=== PATIENT | male | born 1955 | race African-American/Black ===

== ENCOUNTER → 2016-07-08 | Outpatient (CLI) | payer OTHER ==
[2016-07-08 13:51] LABS: CH 34.5; HCT 46.2 % (39.0-53.0); HDW 2.44; HGB 15.1 gm/dL (13.0-17.5); MCH 34.4 pg (25.0-35.0); MCHC 32.7 g/dL (31.0-37.0); MCV 105.1 fL (80.0-100.0); Macrocytosis Slight; Mean Platelet Volume 6.8; RBC 4.39 m/uL (4.30-5.90); RDW 13.5 % (11.5-15.5); WBC 6.3 k/uL (3.8-10.6)
[2016-07-08 13:55] LABS: INR 1.1 (<1.1); Prothrombin Time 11.3 sec (9.0-12.0)
[2016-07-08 14:40] LABS: ALT 42 U/L (21-72); AST 42 U/L (17-59); Alkaline Phosphatase 88 U/L (38-126); Anion Gap 8 mmol/L; Blood Urea Nitrogen 8 mg/dL (9-20); Calcium 9.2 mg/dL (8.4-10.2); Carbon Dioxide 28 mmol/L (22-30); Chloride 105 mmol/L (98-107); Cholesterol 200 mg/dL (<200); Glucose 87 mg/dL (74-99); HDL Cholesterol 90 mg/dL (40-60); Iron 138 ug/dL (49-181); Magnesium 2.2 mg/dL (1.6-2.3); Non-African American GFR(MDRD) >60 (>60 ml/min/1.73 sqM); Phosphorous 3.4 mg/dL (2.5-4.5); Potassium 4.2 mmol/L (3.5-5.1); Sodium 141 mmol/L (137-145); Total Bilirubin 1.6 mg/dL (0.2-1.3); Total Protein 6.9 g/dL (6.3-8.2); Triglycerides 138 mg/dL (<150)
[2016-07-08 14:53] LABS: % Iron Saturation 50.7 % (20-50); Prealbumin 30 mg/dL (18-36); Total Iron Binding Capacity 272 ug/dL (261-462)
[2016-07-08 15:47] LABS: Vitamin B12 180 pg/mL (239-931)
[2016-07-08 21:41] LABS: Hemoglobin A1C 4.7 % (4.2-6.1)
[2016-07-13 16:32] LABS: Selenium 105 mcg/L (63-160)
--- NOTE | 2016-09-02 11:19 | P.PN ---
Progress Note - Text DATE OF SERVICE: 07/08/2016 CHIEF COMPLAINT: History of gastric bypass. HISTORY OF PRESENT ILLNESS: Chey Boyle is a 61-year-old gentleman with a personal history of a sleeve gastrectomy performed in August 2013. He then developed a perforation of his sleeve which required revision to a Yahaira-en-Y esophagojejunostomy at an outside institution. At his height of 5 feet 10 inches, his highest weight was 507 pounds. His ideal body weight is 173 pounds. Today he comes in weighing 330 pounds. He has maintained 177 pounds weight loss. Body mass index has been reduced from 72.5 down to 47.2. Total BMI point reduction is 25.2. Since his last visit 6 months ago, he has gained 23 pounds. Percent excess weight loss is 53%. He reports having lower back pain. Separately, he is also pending surgical intervention for his back. He is quite disappointed of his level of weight gain. He reports not taking his multivitamins as before. He wants to get back on track. He also reports losing his teeth. He has not followed up with a dietitian as well. He now presents for further evaluation and management. PAST MEDICAL HISTORY: 1. Super morbid obesity. 2. History of sleep apnea-hypopnea syndrome. 3. Hypertension. 4. Chronic osteoarthritis of the knees and lower back. 5. Pneumonia. 6. Past history of vent-dependent respiratory failure. 7. Prior history of dysphagia. 8. Perforation of sleeve with history of intraabdominal infection. 9. Chronic lower back pain. PAST SURGICAL HISTORY: 1. Tracheostomy. 2. Percutaneous gastrectomy tube placement. 3. Upper endoscopy. 4. Colonoscopy. 5. Sleeve gastrectomy. 6. Drainage of intra-abdominal abscess. 7. Status post esophago-jejunostomy. MEDICATIONS: 1. Percocet. 2. Toprol XL. 3. Folic acid. ALLERGIES: Denies. SOCIAL HISTORY: Still active tobacco use. FAMILY HISTORY: Mother is living. His father of complications with diabetes including super morbid obesity. REVIEW OF SYSTEMS: CONSTITUTIONAL: Personal weight was down 307 pounds for a 5-foot, 10-inch frame. Highest weight of 507 pounds. Maintained weight loss from 177 pounds, a 53% excess weight loss. He has gained 23 pounds in 6 months. Body mass index reduced from 72.5 down to 47.2. Total BMI point reduction 25.2. MUSCULOSKELETAL: Has severe lower back pain. Also reports hip pain. GASTROINTESTINAL: No reports of dumping syndrome or gastroesophageal reflux disease. HEMATOLOGIC: History of venous congestion of the bilateral lower extremities. RESPIRATORY: No recent pneumonias since hospitalization in April. HEENT: Denies troubles with vision or hearing. ENDOCRINE: No reports of diabetes or thyroid disorder. CARDIOVASCULAR: No reports of chest pain. NEURO: No reports of headache or seizure disorder. PSYCH: Has depression. No current suicidal ideation. PHYSICAL EXAM: VITAL SIGNS: Afebrile. GENERAL: Well-developed male in no acute distress. ABDOMEN: No palpable incisional hernias. Soft, nontender, nondistended. CHEST: Nonlabored respirations. Equal bilateral excursions. MUSCULOSKELETAL: No clubbing, cyanosis. HEENT: No scleral icterus. Extraocular movements intake. Moist buccal mucosa. NECK: Supple without lymphadenopathy. CARDIOVASCULAR: Regular rate and rhythm. NEURO: No focal or lateralizing signs. Cranial nerves II to XII intact. PSYCH: Appropriate affect. Alert and oriented to person, place, and time. LABS: Basic metabolic panel reviewed demonstrating hemoglobin normal at 15.1, MCV is elevated at 105.1, evidence of macrocytosis. BUN is low at 8. Percent iron saturation elevated at 50.7. Total bilirubin elevated at 1.6. Cholesterol is elevated at 200. HDL elevated 90. Vitamin B12 is low at 180. Vitamin D is low 17.3. ASSESSMENT: 1. Morbid obesity due to excess calories. 2. Body mass index reduced from 72.5 down to 47.2. 3. History of revision from his sleeve to Yahaira-en-Y esophagojejunostomy secondary to perforation of his sleeve. 4. Weight gain following weight loss procedure. 5. Chronic lower back pain. 6. History of losing teeth. 7. Vitamin B12 deficiency. 8. Vitamin D deficiency. 9. Osteoarthritis of the hip. 10. Prior history of medical noncompliance. 11. History of depression. 12. History of sleep apnea, resolved. 13. Dietary surveillance and counseling. PLAN: 1. History laboratory results demonstrates vitamin B12 deficiency. Recommend vitamin B12 correction including with injection and daily supplementation. 2. He also reports increased fatigue as a result, which likely secondary to his vitamin B12 deficiency. 3. Recommend vitamin D supplement 50,000 units weekly. 4. Also recommend follow-up with bariatric dietitian regarding getting back on track and goal protein intake of over 90 grams daily. 5. Recommend journal entry as to follow his caloric intake. 6. Close monitoring can anticipate overall anticipated weight loss of 45 pounds over the next 3 to 6 months.
== END | disposition home or self-care (01) ==
LOC: BARWHC3 09:49
PROVIDERS: ATTEND Surgery Plastic and Reconstructive Surgery
DX: E66.01 Morbid (severe) obesity due to excess calories (principal); E21.1 Secondary hyperparathyroidism, not elsewhere classified; E89.1 Postprocedural hypoinsulinemia; D50.8 Other iron deficiency anemias; K90.89 Other intestinal malabsorption; E55.9 Vitamin D deficiency, unspecified; N19 Unspecified kidney failure; K50.90 Crohn's disease, unspecified, without complications; K76.9 Liver disease, unspecified
CPT/HCPCS: 84255; 84134; 84425; 80061; 80053; 82607; 82728; 83036; 82525; 82746; 83540; 83550; 83735; 84100; 84443; 84590; 84630; 85027; 85610; 85730; 82306; 83970; 36415; G0463; 99211

== ENCOUNTER → 2019-01-10 | Outpatient (CLI) | payer OTHER ==
--- NOTE | 2019-01-10 14:33 | P.GSCN ---
History of Present Illness Consult date: 01/10/19 History of present illness: HPI: He comes in with weight gain from 331 to 369 pounds. He is s/p sleeve to gastric bypass. He comes in tired. His enery is low. He comes in with abdominal pain. No protonix. He cannot tolerate sugars. He has gained from 281 pounds to 369 pounds. Gained 90 pounds. He is due scope. He is eating bread. He is pasta. He reports depression. He stopped working out. He reports pain. He was anti-depressants that cause weight gain. Recommend get labs. He is drinking sangria. Past Medical History Past Medical History: Hypertension Additional Past Medical History / Comment(s): Glasses, loose and chipped teeth, Diverticulitis, Gout, Polyps, Back pain, Arthritis, lung abcess 03/06/15 Pt has been seeing physician in [place] for leak in sleeve, venous insufficiency in Left leg, RIght hip has spur, History of Any Multi-Drug Resistant Organisms: None Reported Past Surgical History: Bariatric Surgery, Orthopedic Surgery, Tonsillectomy Additional Past Surgical History / Comment(s): Right and Left ACL, polyps removed, sleeve gastrectomy August 2013, Gastric leak September 2014, March 2015 Gastric Bypass performed by ([facility]) Past Anesthesia/Blood Transfusion Reactions: No Reported Reaction Past Psychological History: No Psychological Hx Reported Additional Psychological History / Comment(s): states he had a bout of depression when abcess was discovered in his sleeve Smoking Status: Current some day smoker Past Alcohol Use History: Daily Additional Past Alcohol Use History / Comment(s): "3-4 glasses of wine daily and one pint of [place] about 4 nights/week. Mixes it with [place] Lemonade or Fruit Punch as well." Cigars a few times a week. Past Drug Use History: None Reported Medications and Allergies Home Medications Medication Instructions Recorded Confirmed Type Folic Acid 1 mg PO DAILY 01/14/16 07/08/16 History Metoprolol Succinate (ER) [Toprol 25 mg PO BID 01/14/16 07/08/16 History Xl] oxyCODONE-APAP 7.5-325MG [Percocet 1 tab PO Q8HR PRN 01/14/16 07/08/16 History 7.5-325 mg] Ergocalciferol [Vitamin D2 50,000 unit PO Q7D #12 cap 07/08/16 Rx (DRISDOL)] Cyanocobalamin (Vitamin B-12) 5,000 mcg PO DAILY #30 tab.rapdis 08/29/16 Rx [Vitamin B12] Allergies Allergy/AdvReac Type Severity Reaction Status Date / Time No Known Allergies Allergy Verified 07/08/16 12:18
--- NOTE | 2019-01-10 14:35 | P.HPBAR ---
Bariatric H&P - History & Physicial H&P Date: 01/10/19 History & Physicial: Visit/CC: Patient initial contact: Initial weight: 201.622 kg Initial weight in pounds: Height: Initial BMI: Last weight: Current weight: Current weight in pounds: Current BMI: [place] body weight (based on NIH guidelines): Excess body weight loss: The patient is a 63 year-old M who presents for Bariatric Assessment. HPI: He comes in with weight gain from 331 to 369 pounds. He is s/p sleeve to ga stric bypass. He comes in tired. His enery is low. He comes in with abdominal pain. No protonix. He cannot tolerate sugars. He has gained from 281 pounds to 369 pounds. Gained 90 pounds. He is due scope. He is eating bread. He is pasta. He reports depression. He stopped working out. He reports pain. He was anti-depressants that cause weight gain. Recommend get labs. He is drinking sangria. He has severe back pain Hernia on exam Get Ct scan Colonoscopy EGD Labs Stop cigar erx for omeprazole Past Medical History Past Medical History: Hypertension Additional Past Medical History / Comment(s): Glasses, loose and chipped teeth, Diverticulitis, Gout, Polyps, Back pain, Arthritis, lung abcess 03/06/15 Pt has been seeing physician in [place] for leak in sleeve, venous insufficiency in Left leg, RIght hip has spur, History of Any Multi-Drug Resistant Organisms: None Reported Past Surgical History: Bariatric Surgery, Orthopedic Surgery, Tonsillectomy Additional Past Surgical History / Comment(s): Right and Left ACL, polyps removed, sleeve gastrectomy August 2013, Gastric leak September 2014, March 2015 Gastric Bypass performed by ([facility]) Past Anesthesia/Blood Transfusion Reactions: No Reported Reaction Past Psychological History: No Psychological Hx Reported Additional Psychological History / Comment(s): states he had a bout of depression when abcess was discovered in his sleeve Smoking Status: Current some day smoker Past Alcohol Use History: Daily Additional Past Alcohol Use History / Comment(s): "3-4 glasses of wine daily and one pint of [place] about 4 nights/week. Mixes it with [place] Lemonade or Fruit Punch as well." Cigars a few times a week. Past Drug Use History: None Reported Bariatric Checklist Checklist: Plan: Checklist: EGD: 1. Hiatal hernia: 2. H. Pylori: HgbA1c: Vitamin D: Smoking: Current some day smoker Primary care physician referral: mark HeJasper) Psychiatry clearance: Cardiology clearance: Sleep study: Diet journal: VTE risk score: VTE risk level: Rehab needs at discharge:
[2019-01-10 14:55] VITALS: BP 159/93; PULSE 82; TEMP 97.7; BMI 52.6
[2019-01-10 16:11] LABS: HCT 50.9 % (39.0-53.0); HGB 15.8 gm/dL (13.0-17.5); MCH 33.8 pg (25.0-35.0); MCHC 31.1 g/dL (31.0-37.0); MCV 108.8 fL (80.0-100.0); Macrocytosis Moderate; Mean Platelet Volume 6.7; Platelet Count 344 k/uL (150-450); RBC 4.68 m/uL (4.30-5.90); RDW 12.9 % (11.5-15.5); WBC 9.3 k/uL (3.8-10.6)
[2019-01-10 16:24] LABS: Partial Thromboplastin Time 23.4 sec (22.0-30.0)
[2019-01-10 23:59] LABS: Hemoglobin A1C 4.6 % (4.0-6.0)
[2019-01-11 01:15] LABS: % Iron Saturation 53.24 (15.00-50.00); African American GFR (CKD) 106.5 (60.0-200.0); Albumin 3.9 g/dL (3.80-4.90); Albumin/Globulin Ratio 1.56 (1.60-3.17); Anion Gap 11.1 mmol/L (4.00-12.00); BUN/Creat Ratio 7.78 Ratio (12.00-20.00); Carbon Dioxide 25.9 mmol/L (21.6-31.8); Chol/HDL Ratio 2.81; Globulin 2.5 g/dL (1.6-3.3); LDL Cholesterol,Calculated 88.8 mg/dL (0.0-131.0); Magnesium 1.9 mg/dL (1.5-2.4); Phosphorus 3.4 mg/dL (2.4-5.1); Potassium 4.4 mmol/L (3.5-5.5); Total Bilirubin 1.1 mg/dL (0.3-1.2); Total Protein 6.4 g/dL (6.2-8.2); VLDL Calculation 27.2 mg/dL (5.00-40.00)
[2019-01-11 01:22] LABS: Ferritin 165.9 ng/mL (22.0-322.0)
[2019-01-11 01:24] LABS: Folate, Serum 8.6 ng/mL
[2019-01-11 11:20] LABS: Zinc, Serum 68 ug/dL (60-130)
[2019-01-11 15:09] LABS: Vitamin A 25 ug/dL (38-106)
[2019-01-12 11:28] LABS: Vit B1(Thiamine) 70 ug/L (38-122)
[2019-01-16 18:06] LABS: Selenium 75 mcg/L (63-160)
== END | disposition home or self-care (01) ==
LOC: BARWHC3 13:28
PROVIDERS: ATTEND Surgery Plastic and Reconstructive Surgery
DX: Z48.815 Encounter for surgical aftercare following surgery on the digestive system (principal); Z98.84 Bariatric surgery status; R63.5 Abnormal weight gain
CPT/HCPCS: 84255; 84134; 84425; 80061; 80053; 82607; 82728; 82525; 82746; 83540; 83550; 83735; 84100; 84443; 84590; 84630; 85027; 85610; 85730; 82306; 83970; 83036; G0463; 99211

== ENCOUNTER → 2019-01-20 | Outpatient (CLI) | payer OTHER ==
--- NOTE | 2019-01-21 12:52 | CT ---
EXAMINATION TYPE: CT abdomen pelvis w con DATE OF EXAM: 01/20/2019 COMPARISON: Gallbladder ultrasound of 2015 HISTORY: Abdomen pain. Pt hx gastric bypass. Check for diverticulitis CT DLP: 2591.70 mGycm Automated exposure control for dose reduction was used. TECHNIQUE: Helical acquisition of images was performed from the lung bases through the pelvis. CONTRAST: Performed with Oral Contrast and with IV Contrast, patient injected with 100 mL of Isovue 300. FINDINGS: The exam is markedly limited secondary to patient body habitus. LUNG BASES: Bibasilar peribronchial cuffing. LIVER/GB: There is markedly suboptimal evaluation. At least moderate grade hepatic steatosis. Calcifi cation or surgical suture along the medial hepatic surface on image 36 may be within a loop of adjace nt small bowel. No radiopaque calculi within the gallbladder on CT. PANCREAS: Some atrophy is seen. No ductal dilatation. SPLEEN: No significant abnormality is seen. ADRENALS: No nodularity or thickening. KIDNEYS: Kidneys enhance symmetrically. FREE AIR: No free air is visualized. RETROPERITONEAL ADENOPATHY: No gross evidence of pathologic adenopathy in the abdomen or pelvis. OSSEOUS STRUCTURES: Moderate multilevel degenerative disc disease of the spine and moderate degenera tive change of the hips. BOWEL: The stomach appears surgically absent with anastomosis of small bowel to the distal esophagus . Numerous sigmoid diverticula are seen with long segment thickening of the distal sigmoid colon. Jina luation for fat stranding is suboptimal given patient body habitus and artifact generation however guadarrama btle fat stranding is questioned around the sigmoid colon diffusely. No pericolonic fluid collection to suggest abscess. No dilated large or small bowel. IMPRESSION: 1. THE EXAM IS MARKEDLY LIMITED SECONDARY TO PATIENT BODY HABITUS ARTIFACT IS GENERATED EDGES OF A CUTE INJURY. LONG SEGMENT BOWEL WALL THICKENING OF THE SIGMOID COLON AND NUMEROUS DIVERTICULA ARE SEE N WITH QUESTIONABLE MILD FAT STRANDING. ACUTE OR RESOLVING DIVERTICULITIS IS A POSSIBILITY. CORRELATE WITH CLINICAL SYMPTOMS. NO SURROUNDING ABSCESS. 2. MARKEDLY SUBOPTIMAL EVALUATION OF THE LIVER. AT LEAST MODERATE GRADE HEPATIC STEATOSIS. 3. BIBASILAR PERIBRONCHIAL CUFFING COULD RELATE TO REACTIVE OR INFECTIOUS AIRWAY DISEASE. 4. POSTSURGICAL CHANGES OF THE BOWEL WITHOUT EVIDENCE OF OBSTRUCTION.
== END | disposition home or self-care (01) ==
LOC: RADCTMAIN 13:23
PROVIDERS: ATTEND Surgery Plastic and Reconstructive Surgery
DX: K57.31 Diverticulosis of large intestine without perforation or abscess with bleeding (principal); K76.0 Fatty (change of) liver, not elsewhere classified; K63.89 Other specified diseases of intestine; S36.593A Other injury of sigmoid colon, initial encounter; Z98.890 Other specified postprocedural states
CPT/HCPCS: 74177; Q9967

== ENCOUNTER 2019-01-28 05:50 | Inpatient (IN) | payer OTHER ==
[2019-01-28] MEDS ORDERED: SODIUM CHLORIDE 0.9% 500 ML 500 ML IV STA (06:08)
[2019-01-28] MEDS ORDERED: PANTOPRAZOLE 40 MG/10 ML VIAL IVP STA (06:09)
[2019-01-28 06:28] LABS: ALT 163 U/L (21-72); AST 475 U/L (17-59); African American GFR (CKD) >90 (>60 ml/min/1.73 sqM); Albumin 3.3 g/dL (3.5-5.0); Alkaline Phosphatase 220 U/L (38-126); Amylase <30 U/L (30-110); Anion Gap 8 mmol/L; Blood Urea Nitrogen 5 mg/dL (9-20); Calcium 8.7 mg/dL (8.4-10.2); Carbon Dioxide 23 mmol/L (22-30); Chloride 108 mmol/L (98-107); Glucose 146 mg/dL (74-99); Non-African American GFR(CKD) >90 (>60 ml/min/1.73 sqM); Sodium 139 mmol/L (137-145); Total Bilirubin 2.7 mg/dL (0.2-1.3)
[2019-01-28 06:29] LABS: Basophils # (A) 0.1 k/uL (0-0.2); Basophils % (A) 1 %; Eosinophils # (A) 0.1 k/uL (0-0.7); Eosinophils % (A) 1 %; HCT 44.4 % (39.0-53.0); HGB 14.6 gm/dL (13.0-17.5); Lymphocytes # (A) 0.7 k/uL (1.0-4.8); Lymphocytes % (A) 7 %; MCH 35.4 pg (25.0-35.0); MCHC 32.8 g/dL (31.0-37.0); MCV 107.8 fL (80.0-100.0); Macrocytosis Moderate; Mean Platelet Volume 6.6; Monocytes # (A) 0.2 k/uL (0-1.0); Monocytes % (A) 2 %; Neutrophils # (A) 9.7 k/uL (1.3-7.7); Neutrophils % (A) 89 %; Platelet Count 280 k/uL (150-450); RBC 4.12 m/uL (4.30-5.90); RDW 13.2 % (11.5-15.5); WBC 10.9 k/uL (3.8-10.6)
[2019-01-28 06:37] LABS: Appearance,Urine Clear (Clear); Bilirubin,Urine 1+ (Negative); Blood,Urine Negative (Negative); Color,Urine Yellow; Glucose,Urine (UA) Negative (Negative); Hyaline Casts,Urine 44 /lpf (0-2); Ketones,Urine Negative (Negative); Leukocyte Esterase,Urine Negative (Negative); Mucus,Urine Rare /hpf; Nitrite,Urine Negative (Negative); PH, Urine 5.5 (5.0-8.0); Protein,Urine 1+ (Negative); Specific Gravity,Urine 1.016 (1.001-1.035); Squamous Epithelial Cell,Urine <1 /hpf (0-4)
[2019-01-28 06:37] LABS: INR 1.1 (<1.2); Partial Thromboplastin Time 21.9 sec (22.0-30.0); Prothrombin Time 11.5 sec (9.0-12.0)
[2019-01-28] MEDS ORDERED: HYDROmorphone 0.5 MG/0.5 ML SYRINGE IVP STA ×3 (06:50→09:59)
[2019-01-28] MEDS ORDERED: SODIUM CHLORIDE 0.9% 1,000 ML IV ONE ×3 (06:55→10:30)
[2019-01-28] MEDS: SODIUM CHLORIDE 0.9% 1,000 ML IV SCH ×3 (07:00→23:54)
--- NOTE | 2019-01-28 07:01 | XR ---
EXAMINATION TYPE: XR chest 2V DATE OF EXAM: 01/28/2019 COMPARISON: 12/27/2011 HISTORY: Epigastric pain TECHNIQUE: Frontal and lateral views of the chest are obtained. FINDINGS: There is poor inspiration. There is some mild atelectasis at the lung bases. There is no o bvious heart failure. There is some coarsening of the lung markings. There are chest leads. IMPRESSION: Poor inspiration with some mild atelectasis at the lung bases. No heart failure seen. Pu lmonary vascularity improved compared to old exam.
--- NOTE | 2019-01-28 07:23 | ED ---
Abdominal Pain HPI <Jose Elias Goel - Last Filed: 01/28/19 12:43> - General Source: patient, EMS Mode of arrival: EMS Limitations: no limitations <[facility] [place] - Last Filed: 01/28/19 14:21> - General Chief Complaint: Abdominal Pain Stated Complaint: abd pain Time Seen by Provider: 01/28/19 06:08 - History of Present Illness Initial Comments: 63-year-old male with history of "removed" gastric sleeve s/p perforation, HTN presenting today for chief complaint of abdominal pain. Patient states that he is in epigastric right upper quadrant abdominal pain ongoing for the past 1-2 months. Patient states she has had evaluation by general surgery, where he is scheduled tomorrow to undergo an endoscopy to rule out cause of this pain a peptic ulcer. He states he has had both an abdominal US of the gallbladder as well as a recent CT of the abdomen. Patient states he has occasional bloody stools with constipation. Patient denies any ghanshyam heavy rectal bleeding, history of hemorrhoids. Denies melena. Patient states occasionally he is nauseated and has vomiting. Patient states that yesterday evening and into the night he began to experience the same upper abdominal pain he has been for the past month and thought it was best to present to the ER for further evaluation. Denies chest pressure, jaw or arm pain, denies back pain or SOB. Patient did not take morning medications. Patient has not other complaints. Upon arrival patient does appear uncomfortable. ([facility] [place]) - Related Data Home Medications Medication Instructions Recorded Confirmed Folic Acid 1 mg PO DAILY 01/14/16 01/28/19 oxyCODONE-APAP 7.5-325MG [Percocet 1 tab PO TID PRN 01/14/16 01/28/19 7.5-325 mg] Allopurinol [Zyloprim] 300 mg PO DAILY PRN 01/25/19 01/28/19 Ergocalciferol [Vitamin D2 50,000 unit PO FR 01/25/19 01/28/19 (DRISDOL)] Metoprolol Tartrate [Lopressor] 50 mg PO BID 01/25/19 01/28/19 Docusate [Colace] 100 mg PO DAILY PRN 01/28/19 01/28/19 Furosemide [Lasix] 20 mg PO DAILY 01/28/19 01/28/19 Gabapentin [Neurontin] 300 mg PO DAILY 01/28/19 01/28/19 Tetrahydrozoline 0.05% Ophth 1 drop BOTH EYES DAILY PRN 01/28/19 01/28/19 [Visine Eye Drops] Previous Rx's Medication Instructions Recorded Omeprazole 40 mg PO DAILY #90 capsule. 01/10/19 Allergies Allergy/AdvReac Type Severity Reaction Status Date / Time No Known Allergies Allergy Verified 01/28/19 10:50 Review of Systems ROS Other: All systems not noted in ROS Statement are negative. <Jose Elias Goel - Last Filed: 01/28/19 12:43> ROS Other: All systems not noted in ROS Statement are negative. <[facility] [place] - Last Filed: 01/28/19 14:21> ROS Statement: Those systems with pertinent positive or pertinent negative responses have been documented in the HPI. Past Medical History Past Medical History: Hypertension Additional Past Medical History / Comment(s): Glasses, loose and chipped teeth, Diverticulitis, Gout, Polyps, Back pain, Arthritis, lung abcess 03/06/15 Pt has been seeing physician in [place] for leak in sleeve, venous insufficiency in Left leg, RIght hip has spur, History of Any Multi-Drug Resistant Organisms: None Reported Past Surgical History: Bariatric Surgery, Orthopedic Surgery, Tonsillectomy Additional Past Surgical History / Comment(s): Right and Left ACL, polyps removed, sleeve gastrectomy August 2013, Gastric leak September 2014, March 2015 Gastric Bypass performed by ([facility] [place] Past Anesthesia/Blood Transfusion Reactions: No Reported Reaction Past Psychological History: No Psychological Hx Reported Smoking Status: Current some day smoker Past Alcohol Use History: Daily Additional Past Alcohol Use History / Comment(s): "3-4 glasses of wine daily and one pint of [place] about 4 nights/week. Mixes it with Cutten Lemonade or Fruit Punch as well." Cigars a few times a week. <[facility] [place] - Last Filed: 01/28/19 14:21> General Exam Limitations: no limitations <[facility] [place] - Last Filed: 01/28/19 14:21> - General Exam Comments Initial Comments: General: The patient is awake and alert, in no distress, morbidly obese Eye: Pupils are equal, round and reactive to light, extra-ocular movements are intact. No nystagmus. There is normal conjunctiva bilaterally. No signs of icterus. Ears, nose, mouth and throat: There are moist mucous membranes and no oral lesions. Neck: The neck is supple, there is no tenderness or JVD. Cardiovascular: There is a increased rate and rhythm. No murmur, rub or gallop is appreciated. Respiratory: Lungs are clear to auscultation, respirations are non-labored, breath sounds are equal. No wheezes, stridor, rales, or rhonchi. Gastrointestinal: Soft, non-distended, epigastric tenderness to palpation of the abdomen without masses or organomegaly noted. The guarding no rebound tenderness. No CVA tenderness. Bowel sounds are unremarkable. Musculoskeletal: Normal ROM, no tenderness. Strength 5/5. Sensation intact. Radial pulses equal bilaterally 2+. Neurological: A&O x 3. CN II-XII intact grossly, There are no obvious motor or sensory deficits. Coordination appears grossly intact. Speech is normal. Skin: Skin is warm and dry and no rashes or lesions are noted. Psychiatric: Cooperative, appropriate mood & affect, normal judgment. ([facility] [place]) Course <Jose Elias Goel - Last Filed: 01/28/19 12:43> Vital Signs 01/28/19 01/28/19 01/28/19 05:51 07:34 07:46 Temperature 97.7 F Pulse Rate 103 H 146 H 144 H Respiratory 22 18 Rate Blood Pressure 127/78 131/61 O2 Sat by Pulse 93 L 91 L Oximetry 01/28/19 01/28/19 01/28/19 07:48 08:00 08:47 Temperature Pulse Rate 144 H 140 H Respiratory 18 18 Rate Blood Pressure 126/63 111/69 O2 Sat by Pulse 94 L 96 96 Oximetry 01/28/19 01/28/19 01/28/19 10:42 10:51 11:11 Temperature Pulse Rate 137 H 133 H 133 H Respiratory 18 18 18 Rate Blood Pressure 84/52 97/59 86/61 O2 Sat by Pulse 97 95 95 Oximetry 01/28/19 01/28/19 01/28/19 11:35 11:54 12:15 Temperature Pulse Rate 122 H 124 H 122 H Respiratory 18 18 18 Rate Blood Pressure 94/41 102/58 101/66 O2 Sat by Pulse 95 91 L 95 Oximetry 01/28/19 01/28/19 12:50 13:10 Temperature 100.7 F H Pulse Rate 125 H Respiratory 18 Rate Blood Pressure 99/64 O2 Sat by Pulse 95 Oximetry - Reevaluation(s) Reevaluation #1: 01/28/19 11:09 Patient earlier evaluated by myself, Dr. Goel. Patient complains of abdominal discomfort. Patient has mild to moderate diffuse tenderness, mostly midabdomen somewhat right upper quadrant. Ultrasound ordered and computed tomography scan. There is concern concern for possible gallbladder disease. Case was discussed twice with Dr. Hdez. He will consult and recommends consult Dr. Parr as well. He does recommend medical admission. Case was discussed with Dr. Hernandez, who will admit for medical call covering for Dr. Gonzales. Heart rate now he has decreased to 120. Blood pressure is 97 systolic. Cultures and lactic acid and IV and about X ordered. Patient has received fluid bolus based off his ideal body weight for a 5 foot 10 male. This was calculated under 2500 mL 01/28/19 11:38 Patient does meet criteria for septic shock diagnosed at 11 AM. 01/28/19 11:53 Case also discussed with Dr. Paris, who will consult for critical care and agrees with plan. (Jose Elias Goel) Procedures - Central Line Placement Right Femoral Consent Obtained: verbal consent, written consent Patient Placed on Monitor/Pulse Ox: Yes MD Prep: mask, gown, gloves Central Line Prep: Chlorhexidine scrub Local Anesthesia Used: Lidocaine 1% Amount of Anesthesia Used (mls): 2 Central Line Lumen Inserted: triple Central Line Position: good blood return, all ports aspirated, flushed, capped, sutured in place with 3-0 nylon Dressing Applied: Tegaderm Patient Tolerated Procedure: well, no complications Complications: none Right SC Consent Obtained: verbal consent, written consent Patient Placed on Monitor/Pulse Ox: Yes MD Prep: mask, gown, gloves Central Line Prep: Chlorhexidine scrub Local Anesthesia Used: Lidocaine 1% Amount of Anesthesia Used (mls): 2 Patient Tolerated Procedure: well, no complications - Sepsis Sepsis Focused Exam #1 Time Sepsis Criteria Met: 11:00 Sepsis Focused Exam Date: 01/28/19 Sepsis Focused Exam Time: 11:38 Sepsis Focused Exam Complete: Yes Vital Signs & RN Notes Reviewed: Yes Capillary Refill: < 2 Seconds: Fingers, Toes Peripheral Pulses: Normal: Radial (R), Radial (L) Skin Color: Normal for Patient Respiratory Exam: normal lung sounds Cardiovascular Exam: tachycardia <Jose Elias Goel - Last Filed: 01/28/19 12:43> - Jelm Protocol (Time Out) Nurse: Neisha Garsia <[facility] [place] - Last Filed: 01/28/19 14:21> - Central Line Placement Right SC Additional Comments: Subclavian vein site obtained however unable to advance guidewire. (Jose Elias Goel) Medical Decision Making - Lab Data Result diagrams: 01/28/19 06:06 01/28/19 06:06 <Jose Elias Goel - Last Filed: 01/28/19 12:43> - Lab Data Result diagrams: 01/28/19 06:06 01/28/19 06:06 <[facility] [place] - Last Filed: 01/28/19 14:21> - Medical Decision Making 63-year-old male presenting for abdominal pain scheduled for outpatient endoscopy tomorrow with Dr. Tay. Patient presenting for persistent epigastric abdominal pain patient has significant transaminitis. Surgery consult to given patient's bariatric status Dr. Goel spoke with Dr. Fox after evaluating the patient. He recommended bariatric CT. There is significant hepatitis. Increased new and a stye with elevation of lactic acid. Patient also was noted to have increase of HR 140, given adenosine by Dr. Goel. EKG revealed sinus tachycardia. Sepsis diagnosed at 10:00 AM with possible infection, elev ation of HR. Given rocephin. Surgery was consulted for the second time by Dr. Goel at 1016, Dr. Delgado recommended admission to medicine with him and GI on consult. IV abx, fluids, NPO. Patient BP trending downward, HR remains elevated, attending aware, second line and increased IVF ordered. If unresponsive patient will need central line insertion placement on ICU. Persistent hypotensive despite fluid resuscitation, patient will have central line for intravenous pressers placed by Dr. Goel, ICU placement ([facility] [place]) - Lab Data Lab Results 01/28/19 01/28/19 01/28/19 Range/Units 06:06 06:06 06:06 WBC 10.9 H (3.8-10.6) k/uL RBC 4.12 L (4.30-5.90) m/uL Hgb 14.6 (13.0-17.5) gm/dL Hct 44.4 (39.0-53.0) % MCV 107.8 H (80.0-100.0) fL MCH 35.4 H (25.0-35.0) pg MCHC 32.8 (31.0-37.0) g/dL RDW 13.2 (11.5-15.5) % Plt Count 280 (150-450) k/uL Neutrophils % 89 % Lymphocytes % 7 % Monocytes % 2 % Eosinophils % 1 % Basophils % 1 % Neutrophils # 9.7 H (1.3-7.7) k/uL Lymphocytes # 0.7 L (1.0-4.8) k/uL Monocytes # 0.2 (0-1.0) k/uL Eosinophils # 0.1 (0-0.7) k/uL Basophils # 0.1 (0-0.2) k/uL Macrocytosis Moderate PT (9.0-12.0) sec INR (<1.2) APTT (22.0-30.0) sec Sodium 139 (137-145) mmol/L Potassium 4.0 (3.5-5.1) mmol/L Chloride 108 H (98-107) mmol/L Carbon Dioxide 23 (22-30) mmol/L Anion Gap 8 mmol/L BUN 5 L (9-20) mg/dL Creatinine 0.66 (0.66-1.25) mg/dL Est GFR (CKD-EPI)AfAm >90 (>60 ml/min/1.73 sqM) Est GFR (CKD-EPI)NonAf >90 (>60 ml/min/1.73 sqM) Glucose 146 H (74-99) mg/dL Lactic Ac Sepsis Rflx Plasma Lactic Acid Dave 3.6 H* (0.7-2.0) mmol/L Calcium 8.7 (8.4-10.2) mg/dL Total Bilirubin 2.7 H (0.2-1.3) mg/dL AST 475 H (17-59) U/L ALT 163 H (21-72) U/L Alkaline Phosphatase 220 H (38-126) U/L Troponin I (0.000-0.034) ng/mL Total Protein 7.0 (6.3-8.2) g/dL Albumin 3.3 L (3.5-5.0) g/dL Amylase <30 L (30-110) U/L Lipase 33 (23-300) U/L Urine Color Urine Appearance (Clear) Urine pH (5.0-8.0) Ur Specific Bath (1.001-1.035) Urine Protein (Negative) Urine Glucose (UA) (Negative) Urine Ketones (Negative) Urine Blood (Negative) Urine Nitrite (Negative) Urine Bilirubin (Negative) Urine Urobilinogen (<2.0) mg/dL Ur Leukocyte Esterase (Negative) Urine WBC (0-5) /hpf Ur Squamous Epith Cells (0-4) /hpf Hyaline Casts (0-2) /lpf Urine Mucus (None) /hpf Acetaminophen ug/mL Hepatitis A IgM Ab 01/28/19 01/28/19 01/28/19 Range/Units 06:06 06:06 06:06 WBC (3.8-10.6) k/uL RBC (4.30-5.90) m/uL Hgb (13.0-17.5) gm/dL Hct (39.0-53.0) % MCV (80.0-100.0) fL MCH (25.0-35.0) pg MCHC (31.0-37.0) g/dL RDW (11.5-15.5) % Plt Count (150-450) k/uL Neutrophils % % Lymphocytes % % Monocytes % % Eosinophils % % Basophils % % Neutrophils # (1.3-7.7) k/uL Lymphocytes # (1.0-4.8) k/uL Monocytes # (0-1.0) k/uL Eosinophils # (0-0.7) k/uL Basophils # (0-0.2) k/uL Macrocytosis PT 11.5 (9.0-12.0) sec INR 1.1 (<1.2) APTT 21.9 L (22.0-30.0) sec Sodium (137-145) mmol/L Potassium (3.5-5.1) mmol/L Chloride (98-107) mmol/L Carbon Dioxide (22-30) mmol/L Anion Gap mmol/L BUN (9-20) mg/dL Creatinine (0.66-1.25) mg/dL Est GFR (CKD-EPI)AfAm (>60 ml/min/1.73 sqM) Est GFR (CKD-EPI)NonAf (>60 ml/min/1.73 sqM) Glucose (74-99) mg/dL Lactic Ac Sepsis Rflx Plasma Lactic Acid Dave (0.7-2.0) mmol/L Calcium (8.4-10.2) mg/dL Total Bilirubin (0.2-1.3) mg/dL AST (17-59) U/L ALT (21-72) U/L Alkaline Phosphatase (38-126) U/L Troponin I <0.012 (0.000-0.034) ng/mL Total Protein (6.3-8.2) g/dL Albumin (3.5-5.0) g/dL Amylase (30-110) U/L Lipase (23-300) U/L Urine Color Urine Appearance (Clear) Urine pH (5.0-8.0) Ur Specific Bath (1.001-1.035) Urine Protein (Negative) Urine Glucose (UA) (Negative) Urine Ketones (Negative) Urine Blood (Negative) Urine Nitrite (Negative) Urine Bilirubin (Negative) Urine Urobilinogen (<2.0) mg/dL Ur Leukocyte Esterase (Negative) Urine WBC (0-5) /hpf Ur Squamous Epith Cells (0-4) /hpf Hyaline Casts (0-2) /lpf Urine Mucus (None) /hpf Acetaminophen <10.0 ug/mL Hepatitis A IgM Ab 01/28/19 01/28/19 01/28/19 Range/Units 06:20 06:55 10:16 WBC (3.8-10.6) k/uL RBC (4.30-5.90) m/uL Hgb (13.0-17.5) gm/dL Hct (39.0-53.0) % MCV (80.0-100.0) fL MCH (25.0-35.0) pg MCHC (31.0-37.0) g/dL RDW (11.5-15.5) % Plt Count (150-450) k/uL Neutrophils % % Lymphocytes % % Monocytes % % Eosinophils % % Basophils % % Neutrophils # (1.3-7.7) k/uL Lymphocytes # (1.0-4.8) k/uL Monocytes # (0-1.0) k/uL Eosinophils # (0-0.7) k/uL Basophils # (0-0.2) k/uL Macrocytosis PT (9.0-12.0) sec INR (<1.2) APTT (22.0-30.0) sec Sodium (137-145) mmol/L Potassium (3.5-5.1) mmol/L Chloride (98-107) mmol/L Carbon Dioxide (22-30) mmol/L Anion Gap mmol/L BUN (9-20) mg/dL Creatinine (0.66-1.25) mg/dL Est GFR (CKD-EPI)AfAm (>60 ml/min/1.73 sqM) Est GFR (CKD-EPI)NonAf (>60 ml/min/1.73 sqM) Glucose (74-99) mg/dL Lactic Ac Sepsis Rflx Y Plasma Lactic Acid Dave 3.4 H* (0.7-2.0) mmol/L Calcium (8.4-10.2) mg/dL Total Bilirubin (0.2-1.3) mg/dL AST (17-59) U/L ALT (21-72) U/L Alkaline Phosphatase (38-126) U/L Troponin I (0.000-0.034) ng/mL Total Protein (6.3-8.2) g/dL Albumin (3.5-5.0) g/dL Amylase (30-110) U/L Lipase (23-300) U/L Urine Color Yellow Urine Appearance Clear (Clear) Urine pH 5.5 (5.0-8.0) Ur Specific Bath 1.016 (1.001-1.035) Urine Protein 1+ H (Negative) Urine Glucose (UA) Negative (Negative) Urine Ketones Negative (Negative) Urine Blood Negative (Negative) Urine Nitrite Negative (Negative) Urine Bilirubin 1+ H (Negative) Urine Urobilinogen 6.0 (<2.0) mg/dL Ur Leukocyte Esterase Negative (Negative) Urine WBC 1 (0-5) /hpf Ur Squamous Epith Cells <1 (0-4) /hpf Hyaline Casts 44 H (0-2) /lpf Urine Mucus Rare H (None) /hpf Acetaminophen ug/mL Hepatitis A IgM Ab 01/28/19 01/28/19 Range/Units 10:49 11:09 WBC (3.8-10.6) k/uL RBC (4.30-5.90) m/uL Hgb (13.0-17.5) gm/dL Hct (39.0-53.0) % MCV (80.0-100.0) fL MCH (25.0-35.0) pg MCHC (31.0-37.0) g/dL RDW (11.5-15.5) % Plt Count (150-450) k/uL Neutrophils % % Lymphocytes % % Monocytes % % Eosinophils % % Basophils % % Neutrophils # (1.3-7.7) k/uL Lymphocytes # (1.0-4.8) k/uL Monocytes # (0-1.0) k/uL Eosinophils # (0-0.7) k/uL Basophils # (0-0.2) k/uL Macrocytosis PT (9.0-12.0) sec INR (<1.2) APTT (22.0-30.0) sec Sodium (137-145) mmol/L Potassium (3.5-5.1) mmol/L Chloride (98-107) mmol/L Carbon Dioxide (22-30) mmol/L Anion Gap mmol/L BUN (9-20) mg/dL Creatinine (0.66-1.25) mg/dL Est GFR (CKD-EPI)AfAm (>60 ml/min/1.73 sqM) Est GFR (CKD-EPI)NonAf (>60 ml/min/1.73 sqM) Glucose (74-99) mg/dL Lactic Ac Sepsis Rflx Y Plasma Lactic Acid Dave (0.7-2.0) mmol/L Calcium (8.4-10.2) mg/dL Total Bilirubin (0.2-1.3) mg/dL AST (17-59) U/L ALT (21-72) U/L Alkaline Phosphatase (38-126) U/L Troponin I (0.000-0.034) ng/mL Total Protein (6.3-8.2) g/dL Albumin (3.5-5.0) g/dL Amylase (30-110) U/L Lipase (23-300) U/L Urine Color Urine Appearance (Clear) Urine pH (5.0-8.0) Ur Specific Bath (1.001-1.035) Urine Protein (Negative) Urine Glucose (UA) (Negative) Urine Ketones (Negative) Urine Blood (Negative) Urine Nitrite (Negative) Urine Bilirubin (Negative) Urine Urobilinogen (<2.0) mg/dL Ur Leukocyte Esterase (Negative) Urine WBC (0-5) /hpf Ur Squamous Epith Cells (0-4) /hpf Hyaline Casts (0-2) /lpf Urine Mucus (None) /hpf Acetaminophen ug/mL Hepatitis A IgM Ab NEGATIVE Critical Care Time Critical Care Time: Yes <Jose Elias Goel - Last Filed: 01/28/19 12:43> Disposition <Jose Elias Goel - Last Filed: 01/28/19 12:43> Is patient prescribed a controlled substance at d/c from ED?: No Time of Disposition: 12:00 <[address] [facility] - Last Filed: 01/28/19 14:21> Clinical Impression: Septic shock, Abdominal pain, Hypotension Disposition: ADMITTED IP TO THIS HOSP Condition: Serious
[2019-01-28] MEDS ORDERED: SODIUM CHLORIDE 0.9% 1,000 ML IV STA (07:49)
[2019-01-28] MEDS: HYDROmorphone 1 MG/ML 1 ML SYRINGE IVP STA ×2 (08:01→12:33)
[2019-01-28] MEDS ORDERED: IOPAMIDOL CONTRAST (ORAL USE) VIAL PO PRN (08:24)
--- NOTE | 2019-01-28 09:35 | CT ---
EXAMINATION TYPE: CT abdomen pelvis w con DATE OF EXAM: 01/28/2019 COMPARISON: 01/20/2019 HISTORY: 63-year-old male pain and vomiting TECHNIQUE: Contiguous axial scanning of the abdomen and pelvis following administration of 100 ml Iso mk 300 IV contrast. Delayed images through the kidneys and coronal/sagittal reconstructions perform ed. CT DLP: 3838 mGycm Automated exposure control for dose reduction was used. FINDINGS: Generalized anasarca change. Heart borderline enlarged without pericardial effusion. No pleural effus ion. Increased patchy posterior basilar opacities. Contrast column within the distal esophagus. There seems to be prior surgery in the upper abdomen, li valerio Belén-en-Y gastric bypass. The liver is large with very low attenuation. Liver measures 30.0 cm craniocaudal. A band of hyperdensity projects along the right lateral margin of the liver. On coronal series, this is compatible with artifact rather than a subcapsular abnormality. Mild gallbladder hydrops and 4.1 cm wide with suggestion of mild wall thickening. Brent hepatic lymph node is mildly enlarged measuring up to 1.6 cm. These have increased in size from 01/20/2019. Portal venous system is patent. Adrenal glands within normal limits. The kidney images show normal excretion of contrast from the kid neys. Subcentimeter hypodensity lateral mid pole left kidney too small for accurate CT characterizati on, likely tiny cysts. Liver and pancreas appear within normal limits. No dilated small bowel, free fluid, or free air. Normal appendix. Left-sided colonic diverticulosis. No definite pericolonic inflammatory change. Annular narrowing along the mid sigmoid, axial image 82 was not present on 01/20/2019. Findings sugge st transient peristaltic contraction. No abnormal fluid collection the pelvis or pelvic lymphadenopathy. Bones: Degenerative changes of the hips and SI joints. Degenerative disc disease and facet arthropath y throughout the visualized spine. [facility] within the lower thoracic spine. IMPRESSION: 1. SEVERE HEPATOMEGALY (30.0 CM). THERE IS LOW-DENSITY OF THE LIVER SUGGESTING EITHER EDEMA FROM HEPA TITIS OR UNDERLYING FATTY INFILTRATION. FURTHER CLINICAL CORRELATION RECOMMENDED. 2. PORTAHEPATIC LYMPHADENOPATHY MEASURING UP TO 1.6 CM, INCREASING FROM RECENT 01/20/2019 EXAM SUGGES TS REACTIVE LYMPHADENOPATHY. 3. NO EXCRETION OF CONTRAST FROM THE KIDNEYS ON DELAYED KIDNEY IMAGES. CORRELATE WITH PATIENT'S RENAL FUNCTION TO EXCLUDE ACUTE KIDNEY INJURY. 4. MILD GALLBLADDER WALL THICKENING AND MILD GALLBLADDER HYDROPS. THE GALLBLADDER DISTENTION MAY RELA TE TO FASTING STATE. THE WALL THICKENING IS NONSPECIFIC AND COULD RELATE TO UNDERLYING LIVER DISEASE OR FLUID OVERLOAD STATE. IF CONCERN FOR EARLY ACUTE CHOLECYSTITIS, HIDA SCAN MAY BE HELPFUL. 5. LEFT-SIDED COLONIC DIVERTICULOSIS. NO DEFINITE ACUTE DIVERTICULITIS. 6. GENERALIZED ANASARCA CHANGE, NEW/INCREASED FROM 01/20/2019. 7. NEW PATCHY BIBASILAR DENSITIES COULD REPRESENT ATELECTASIS OR INFECTIOUS/ASPIRATION INFILTRATES. 8. PRIOR BELÉN-EN-Y GASTRIC BYPASS.
--- NOTE | 2019-01-28 09:43 | US ---
EXAMINATION TYPE: US gallbladder DATE OF EXAM: 01/28/2019 COMPARISON: NONE CLINICAL HISTORY: 63-year-old male transaminitis, upper abdominal pain. Epigastric pain, nausea and v omiting TECHNIQUE: Multiple sonographic images of the right upper quadrant are obtained. FINDINGS: EXAM MEASUREMENTS: Liver Length: 26.2 cm Gallbladder Wall: 0.4 cm CBD: 0.5 cm Right Kidney: 12.3 x 5.7 x 6.0 cm [employer] NOTES: Technical limitations due to patient's body habitus (365 pounds) and large amoun t of overlying bowel content Pancreas: Obscured by bowel gas Liver: enlarged, attenuating, unable to penetrate Gallbladder: possible small 6 mm stone vs. polyp. The wall is mildly thickened at 3.9 mm. Evidence for sonographic Bey's sign: no CBD: limited evaluation, visualized portion measures 5.2 mm, within normal limits. Right Kidney: limited detailed evaluation. No obvious hydronephrosis. IMPRESSION: 1. The liver is very large (26.2 cm). Heterogeneous and attenuating appearance suggests underlying fa tty liver or other nonspecific hepatocellular disease. 2. Mildly thickened gallbladder wall. 6 mm gallstone versus polyp. No abnormal distention, sonographi c Bey's sign, or surrounding fluid to support acute cholecystitis at this time. 3. Only a small portion of the bile duct is visualized and is normal caliber.
[2019-01-28] MEDS ORDERED: SODIUM CHLORIDE 0.9% 500 ML 500 ML IV ONE (09:59)
[2019-01-28] MEDS ORDERED: NALOXONE 0.4 MG/ML 1 ML VIAL IV PRN (10:23)
[2019-01-28] MEDS ORDERED: PIPERACILLIN-TAZOBACTAM 3.375 GM in SODIUM CHLORIDE 0.9% 100 ML IVPB STA (10:23)
[2019-01-28 11:57] LABS: Hepatitis A Antibody IgM NEGATIVE
[2019-01-28] MEDS ORDERED: NOREPINEPHRINE 32 MG in SODIUM CHLORIDE 0.9% 218 ML IV SCH (12:45)
--- NOTE | 2019-01-28 12:58 | XR ---
EXAMINATION TYPE: XR chest 1V portable DATE OF EXAM: 01/28/2019 Comparison: 01/28/2019 Clinical History: 63-year-old male line attempt Findings: No appreciable pneumothorax. Heart mildly enlarged. Lung bases are underpenetrated and not well asses sed. Impression: Mild cardiomegaly. No appreciable pneumothorax. Patchy bibasilar areas of atelectasis and/or infiltra terrie.
[2019-01-28] MEDS ORDERED: ACETAMINOPHEN TAB 500 MG TAB PO STA (13:11)
[2019-01-28 13:48] LABS: Glucose,Whole Blood 169 mg/dL (75-99)
[2019-01-28 13:56] VITALS: BMI 52.9
[2019-01-28] MEDS ORDERED: ACETAMINOPHEN IV (For NPO) 1,000 MG in EMPTY BAG 1 BAG IVPB PRN (14:21)
[2019-01-28] MEDS ORDERED: HYDROmorphone 0.5 MG/0.5 ML SYRINGE IVP PRN (14:22)
[2019-01-28] MEDS: HEPARIN SODIUM,PORCINE 5,000 UNIT/ML 1 ML VIAL SQ SCH ×2 (15:56→23:53)
[2019-01-28] MEDS: PIPERACILLIN-TAZOBACTAM 3.375 GM in SODIUM CHLORIDE 0.9% 100 ML IVPB SCH ×2 (16:01→23:53)
[2019-01-28] MEDS ORDERED: HYDROmorphone 1 MG/ML 1 ML SYRINGE IVP PRN (17:50)
[2019-01-28 18:25] LABS: Basophils # (A) 0.1 k/uL (0-0.2); Basophils % (A) 0 %; Eosinophils # (A) 0.1 k/uL (0-0.7); Eosinophils % (A) 0 %; HCT 43.5 % (39.0-53.0); HGB 13.9 gm/dL (13.0-17.5); Hypochromasia Slight; Lymphocytes # (A) 0.4 k/uL (1.0-4.8); Lymphocytes % (A) 2 %; MCH 35.4 pg (25.0-35.0); MCV 110.9 fL (80.0-100.0); Macrocytosis Marked; Mean Platelet Volume 6.2; Monocytes # (A) 0.6 k/uL (0-1.0); Monocytes % (A) 3 %; Neutrophils # (A) 17.7 k/uL (1.3-7.7); Neutrophils % (A) 93 %; Platelet Count 236 k/uL (150-450); RBC 3.92 m/uL (4.30-5.90); RDW 13.1 % (11.5-15.5)
[2019-01-28 18:41] LABS: ALT 193 U/L (21-72); AST 498 U/L (17-59); African American GFR (CKD) >90 (>60 ml/min/1.73 sqM); Albumin 2.9 g/dL (3.5-5.0); Alkaline Phosphatase 162 U/L (38-126); Anion Gap 9 mmol/L; Blood Urea Nitrogen 8 mg/dL (9-20); Calcium 7.7 mg/dL (8.4-10.2); Carbon Dioxide 23 mmol/L (22-30); Chloride 108 mmol/L (98-107); Glucose 114 mg/dL (74-99); Non-African American GFR(CKD) >90 (>60 ml/min/1.73 sqM); Potassium 5.1 mmol/L (3.5-5.1); Sodium 140 mmol/L (137-145); Total Bilirubin 5.1 mg/dL (0.2-1.3); Total Protein 6.3 g/dL (6.3-8.2)
[2019-01-28] MEDS ORDERED: KETOROLAC 30 MG/ML 1 ML VIAL IVP PRN (18:57)
[2019-01-28 19:13] LABS: Amylase <30 U/L (30-110)
--- NOTE | 2019-01-28 19:16 | P.HPIM ---
History of Present Illness H&P Date: 01/28/19 Chief Complaint: Abdominal pain Patient is a 63-year-old male with a known history of hypertension, history of removed gastric status post perforation, chronic back pain, osteoarthritis and other medical problems came to ER with complaints of abdominal pain. Patient says that he was having worsening abdominal pain since yesterday, mainly in the epigastric region and right upper quadrant. Patient stated home until 4 AM today but could not bear the pain anymore and presented to ER. Patient is supposed to be getting EGD due to epigastric abdominal pain today by Dr. Galina bell. He was taking the bowel prep since yesterday. Denied any radiation of the pain to the back artery side of the abdomen. Mainly in the epigastric region and sometimes radiating down the abdomen to rehab likely area. Denied any complaints of chest pain. No shortness of . No fever no chills. Patient does drink 1-2 beers on regular basis. Was tachycardic and hypotensive on admission. Patient was given 3 L fluid bolus in the ER. Patient was transferred to MICU. CXR showed mild ateleactasis at lung bases. CT abd. showed severe hepatomegaly and eunice hepatic lymphadenopathy.mild gall bladder enlargement and hydrops. leftsided diverticulosis. US-abd fatty liver WBC 10.9 LA 3.4 ASL 475 ALT 163 Review of Systems Constitutional: Patient denies any fever or chills . No generalized weakness or weight loss. Abdomen: Abdominal pain epigastric and right upper quadrant. Nausea positive. No vomiting. No diarrhea.. Cardiovascular: Patient denies any chest pain or short of breath no palpitations. Respiratory: patient denied any cough is from production. No shortness of breath Neurologic: Patient denied any numbness or tingling headache. Musculoskeletal: Patient denies any complaints of joint swelling or deformity. Skin: Negative Psychiatric: Negative Endocrine: No heat or cold intolerance. No recent weight gain. Genitourinary: No dysuria or hematuria. All other 14 point ROS negative except the above Past Medical History Past Medical History: Hypertension Additional Past Medical History / Comment(s): Glasses, loose and chipped teeth, Diverticulitis, Gout, Polyps, Back pain, Arthritis, lung abcess 03/06/15 Pt has been seeing physician in [place] for leak in sleeve, venous insufficiency in Left leg, RIght hip has spur, History of Any Multi-Drug Resistant Organisms: None Reported Past Surgical History: Bariatric Surgery, Orthopedic Surgery, Tonsillectomy Additional Past Surgical History / Comment(s): Right and Left ACL, polyps removed, sleeve gastrectomy August 2013, Gastric leak September 2014, March 2015 Gastric Bypass performed by ([facility]) Past Anesthesia/Blood Transfusion Reactions: No Reported Reaction Past Psychological History: No Psychological Hx Reported Smoking Status: Current some day smoker Past Alcohol Use History: Daily Additional Past Alcohol Use History / Comment(s): "3-4 glasses of wine daily and one pint of [place] about 4 nights/week. Mixes it with [place] Lemonade or Fruit Punch as well." Cigars a few times a week. Medications and Allergies Home Medications Medication Instructions Recorded Confirmed Type Folic Acid 1 mg PO DAILY 01/14/16 01/28/19 History oxyCODONE-APAP 7.5-325MG [Percocet 1 tab PO TID PRN 01/14/16 01/28/19 History 7.5-325 mg] Omeprazole 40 mg PO DAILY #90 capsule. 01/10/19 01/28/19 Rx Allopurinol [Zyloprim] 300 mg PO DAILY PRN 01/25/19 01/28/19 History Ergocalciferol [Vitamin D2 50,000 unit PO FR 01/25/19 01/28/19 History (ISDLIBRA)] Metoprolol Tartrate [Lopressor] 50 mg PO BID 01/25/19 01/28/19 History Docusate [Colace] 100 mg PO DAILY PRN 01/28/19 01/28/19 History Furosemide [Lasix] 20 mg PO DAILY 01/28/19 01/28/19 History Gabapentin [Neurontin] 300 mg PO DAILY 01/28/19 01/28/19 History Tetrahydrozoline 0.05% Ophth 1 drop BOTH EYES DAILY PRN 01/28/19 01/28/19 History [Visine Eye Drops] Allergies Allergy/AdvReac Type Severity Reaction Status Date / Time No Known Allergies Allergy Verified 01/28/19 10:50 Physical Exam Vitals: Vital Signs Temp Pulse Pulse Resp BP BP Pulse Ox 01/28/19 13:34 100.3 F H 117 H 16 84/44 92 L 01/28/19 13:10 100.7 F H 01/28/19 12:50 125 H 18 99/64 95 01/28/19 12:15 122 H 18 101/66 95 01/28/19 11:54 124 H 18 102/58 91 L 01/28/19 11:35 122 H 18 94/41 95 01/28/19 11:11 133 H 18 86/61 95 01/28/19 10:51 133 H 18 97/59 95 01/28/19 10:42 137 H 18 84/52 97 01/28/19 08:47 140 H 18 111/69 96 01/28/19 08:00 144 H 18 126/63 96 01/28/19 07:48 94 L 01/28/19 07:46 144 H 18 131/61 91 L 01/28/19 07:34 146 H 01/28/19 05:51 97.7 F 103 H 22 127/78 93 L Intake and Output 01/27/19 01/28/19 01/28/19 22:59 06:59 14:59 Other: Weight 165.561 kg PHYSICAL EXAMINATION: Patient is lying in the bed comfortably, no acute distress, awake alert and oriented. Morbidly obese. HEENT: Normocephalic. Neck is supple. Pupils reactive. Nostrils clear. Oral cavity is moist. Ears reveal no drainage. Neck reveals no JVD, carotid bruits, or thyromegaly. CHEST EXAMINATION: Trachea is central. Symmetrical expansion. Bibasilar diminished air entry. Lung yarbrough clear to auscultation and percussion. CARDIAC: Normal S1, S2 with no gallops. No murmurs ABDOMEN: Soft. Mild epigastric tenderness. No guarding no rigidity. Bowel sounds present. No organomegaly. No abdominal bruits. Extremities: Trace edema. No clubbing or cyanosis Neurologically awake, alert, oriented x3 with well-coordinated movements. No focal deficits noted Skin: No rash or skin lesions. Psychiatric: Coperative. Nonsuicidal Musculoskeletal: No joint swelling or deformity. Normal range of motion. Results CBC & Chem 7: 01/28/19 17:39 01/28/19 06:06 Labs: Abnormal Lab Results - Last 24 Hours (Table) 01/28/19 01/28/19 01/28/19 Range/Units 06:06 06:06 06:06 WBC 10.9 H (3.8-10.6) k/uL RBC 4.12 L (4.30-5.90) m/uL MCV 107.8 H (80.0-100.0) fL MCH 35.4 H (25.0-35.0) pg Neutrophils # 9.7 H (1.3-7.7) k/uL Lymphocytes # 0.7 L (1.0-4.8) k/uL APTT (22.0-30.0) sec Chloride 108 H (98-107) mmol/L BUN 5 L (9-20) mg/dL Glucose 146 H (74-99) mg/dL POC Glucose (mg/dL) (75-99) mg/dL Plasma Lactic Acid Dave 3.6 H* (0.7-2.0) mmol/L Total Bilirubin 2.7 H (0.2-1.3) mg/dL AST 475 H (17-59) U/L ALT 163 H (21-72) U/L Alkaline Phosphatase 220 H (38-126) U/L Albumin 3.3 L (3.5-5.0) g/dL Amylase <30 L (30-110) U/L Urine Protein (Negative) Urine Bilirubin (Negative) Hyaline Casts (0-2) /lpf Urine Mucus (None) /hpf 01/28/19 01/28/19 01/28/19 Range/Units 06:06 06:20 10:16 WBC (3.8-10.6) k/uL RBC (4.30-5.90) m/uL MCV (80.0-100.0) fL MCH (25.0-35.0) pg Neutrophils # (1.3-7.7) k/uL Lymphocytes # (1.0-4.8) k/uL APTT 21.9 L (22.0-30.0) sec Chloride (98-107) mmol/L BUN (9-20) mg/dL Glucose (74-99) mg/dL POC Glucose (mg/dL) (75-99) mg/dL Plasma Lactic Acid Dave 3.4 H* (0.7-2.0) mmol/L Total Bilirubin (0.2-1.3) mg/dL AST (17-59) U/L ALT (21-72) U/L Alkaline Phosphatase (38-126) U/L Albumin (3.5-5.0) g/dL Amylase (30-110) U/L Urine Protein 1+ H (Negative) Urine Bilirubin 1+ H (Negative) Hyaline Casts 44 H (0-2) /lpf Urine Mucus Rare H (None) /hpf 01/28/19 01/28/19 Range/Units 13:35 13:57 WBC (3.8-10.6) k/uL RBC (4.30-5.90) m/uL MCV (80.0-100.0) fL MCH (25.0-35.0) pg Neutrophils # (1.3-7.7) k/uL Lymphocytes # (1.0-4.8) k/uL APTT (22.0-30.0) sec Chloride (98-107) mmol/L BUN (9-20) mg/dL Glucose (74-99) mg/dL POC Glucose (mg/dL) 169 H (75-99) mg/dL Plasma Lactic Acid Dave 4.4 H* (0.7-2.0) mmol/L Total Bilirubin (0.2-1.3) mg/dL AST (17-59) U/L ALT (21-72) U/L Alkaline Phosphatase (38-126) U/L Albumin (3.5-5.0) g/dL Amylase (30-110) U/L Urine Protein (Negative) Urine Bilirubin (Negative) Hyaline Casts (0-2) /lpf Urine Mucus (None) /hpf Thrombosis Risk Factor Assmnt - DVT/VTE Prophylaxis DVT/VTE Prophylaxis: Pharmacologic Prophylaxis ordered, Mechanical Prophylaxis ordered - Choose All That Apply Any of the Below Risk Factors Present?: Yes Each Factor Represents 1 point: Obesity (BMI >25), Sepsis (< 1month) Other Risk Factors: Yes Each Risk Factor Represents 2 Points: Age 61-74 years Other congenital or acquired thrombophilia - If yes, enter type in comment: No Thrombosis Risk Factor Assessment Total Risk Factor Score: 4 Thrombosis Risk Factor Assessment Level: Moderate Risk Assessment and Plan Assessment: Abdominal pain secondary to peptic ulcer disease versus acute cholecystitis. Sepsis/septic shock secondary to above Lactic acidosis Elevated liver enzymes and alk phos Hyperbilirubinemia 5.1 Severe hepatomegaly Gallbladder wall thickening and mild hydrops Left colonic diverticulosis Hypertension Chronic back pain and arthritis History of lung abscess History of gastric sleeve perforation and removal. History of Gastric bypass surgery Ongoing nicotine addiction Alcohol abuse Morbid obesity BMI 55.2 DVT prophylaxis with subcu and Plan: Patient be continued on IV hydration and pressor support as needed. Continue with antibiotics in the form of Zosyn and follow closely in the ICU. Critical care team and general surgery was consulted. GI service was also consulted. Continue with PPI. Further recommendations based on clinical course. Prognosis is guarded this t thierry. Time with Patient: Greater than 30
--- NOTE | 2019-01-28 19:49 | CONS ---
CONSULTATION PULMONARY/CRITICAL CARE CONSULTATION: DATE OF CONSULTATION: 01/28/2019 This is a 63-year-old male status post gastric sleeve removal, status post a perforation. Apparently, he had a gastric sleeve done in 2013. About a year later he had a gastric blowout. His surgeon is Dr. Tanner. She initially did the sleeve. He presents to the emergency room via EMS today with complaints of severe abdominal pain. The abdominal pain is mostly epigastric more than anything else. The patient received quite a bit of fluid in the emergency room because of hypotension. He received 5 L of fluid. He has currently got norepinephrine running at 10 mcg/minute. His primary care doctor is Dr. Barron. His surgeon is Dr. Tanner. He was apparently scheduled for an EGD and colonoscopy as an outpatient tomorrow. The patient's pain has been going on and off for about 2 or 3 months. Typically it goes away, but this time it seemed to stay and that is why he came to be seen. He was evaluated in the emergency room by Dr. Goel and a central line was placed and he was placed in the ICU. Currently, he states he is feeling better. Denies chest pain or chest discomfort. He denies any difficulty breathing, coughing, wheezing or shortness of breath. The pain is much better now. He has received pain medication. His home medications include folic acid, Percocet, allopurinol, vitamin D2, metoprolol, Colace, Lasix, Neurontin, and Visine eyedrops. He also is on omeprazole. ALLERGIES: Denied. MEDICAL HISTORY: Hypertension. He also has a history of diverticulitis, gout, colonic polyps, chronic back pain, arthritis, and a previous history of lung abscess. Again, his initial gastric sleeve surgery was back in 2013. SURGICAL HISTORY: Includes tonsillectomy, right and left ACL repair, polypectomy, sleeve gastrectomy in 2013 and a gastric leak in 2014. In 2016 he had a gastric bypass performed by Dr. Cole at the [facility]. SOCIAL HISTORY: Positive for ongoing tobacco use. He drinks alcohol daily. He is a heavy drinker and apparently drinks 3-4 glasses of wine daily and 1 pint of bourbon about every week. He also smokes cigars a few times a week. FAMILY HISTORY: Unremarkable. States his parents were in good health. REVIEW OF SYSTEMS: CONSTITUTIONAL: Negative. NEUROLOGIC: Negative. HEENT: Negative. CARDIOVASCULAR: Negative. PULMONARY: Negative. GI: Abdominal pain. : Negative. RHEUMATOLOGIC: Negative. IMMUNOLOGIC: Negative. ENDOCRINOLOGIC: Negative. DERMATOLOGIC: Negative. PHYSICAL EXAMINATION: VITAL SIGNS: Current vital signs are reviewed. His temperature is 98.4, heart rate 100, respiratory rate about 17-18 breaths per minute, blood pressure is now about 90 systolic. His saturations are in the low to mid 90s on 2 L. Appears in no acute distress. HEENT examination is grossly unremarkable. Nasal O2 in place. NECK: Supple. CARDIOVASCULAR examination reveals mild tachycardia. Heart rate about 100. It is regular. LUNGS: Reveal clear breath sounds. No wheezes, rhonchi, or crackles. ABDOMEN: Tender to palpation. His tenderness is throughout the abdomen but mostly in the epigastric region. He does not appear to favor one side or the other. EXTREMITIES: Intact. No cyanosis, clubbing, or edema. SKIN: Without rash. NEUROLOGIC: Examination is nonfocal. LAB DATA: Reviewed. White count 10.9, hemoglobin 14.6, hematocrit 44.4, platelet count 380,000. PT/INR were normal. PTT 21.9. Sodium 139, potassium 4, chloride 108, CO2 is 23. Anion gap 8. BUN and creatinine were 5 and 0.66. His lactic acid was initially elevated, went down a bit and then went back up a bit. Calcium 8.7, bilirubin 2.7, AST 475, ALT 163, albumin was 3.3, amylase less than 30, lipase 33. Urine is negative. Tylenol level was negative. The patient had a chest x-ray. The chest x-ray shows small lung volumes, maybe a bit of cephalization and bibasilar atelectasis and small bilateral pleural effusions. This may relate to all the fluid he received in the emergency room. He had an abdominal and pelvic CT scan which showed severe hepatomegaly and possible hepatitis and/or fatty infiltration, eunice hepatic lymphadenopathy measuring up to 1.6 cm, mild gallbladder wall thickening and mild gallbladder hydrops, left-sided colonic diverticulosis, generalized anasarca, bibasilar patchy densities and previous Yahaira-en-Y gastric bypass procedure. Gallbladder ultrasound shows the liver to be very large suggesting fatty infiltration and/or nonspecific hepatocellular disease. The gallbladder wall was mildly thickened. There is a 6 mm gallstone versus polyp. Current microbiology is pending or negative. Currently, he is on norepinephrine at 10 mcg/minutes, 0.9 at 130 mL an hour. His other medications are primarily Zosyn, Narcan, Dilaudid, and Tylenol. ASSESSMENT: 1. Severe epigastric pain of unclear etiology in a patient with a prior history of sleeve gastrectomy in August 2013, gastric blowout of gastric sleeve September 2014 and subsequent gastric bypass (Yahaira-en-Y) March 2015. 2. Profound hypotension, which may relate to sepsis. 3. Lactic acidosis. 4. History of hypertension. 5. History of gout. 6. History of diverticular disease. 7. Colonic polyp. 8. Arthritis. 9. History of lung abscess. 10.Acute hepatitis, possibly related to heavy alcohol use. PLAN: Currently, the patient is on fluids and pressors. Surgery has been notified. He was to have an outpatient EGD and colonoscopy performed tomorrow by Dr. Tanner. Currently, Dr. Delgado is covering for Dr. Tanner. Respiratory status remains stable. We will repeat the lactic acid later today. Additional recommendations and suggestions are forthcoming. We will attempt to maintain a mean arterial pressure between 65-70 mmHg. Prognosis is guarded. We will observe for alcohol withdrawal syndrome. MMODL / IJN: [id number] / MTDD
--- NOTE | 2019-01-28 19:52 | P.PN ---
Progress Note - Text Progress Note Date: 01/28/19 I was consulted on this patient earlier today as I am covering Dr. Tay. I spoke to the ER physicians earlier today. He was admitted to the ICU under the medical service. Both myself, GI, and critical care work consult it. Patient's liver enzymes on admission were elevated. CAT scan and ultrasound both limited by the patient's significant abdominal obesity however possible cholelithiasis and gallbladder wall thickening suspected. In the ICU the patient's pain was persisting. His blood pressure was somewhat labile requiring low-dose pressors. Repeat labs were ordered by myself at 4 PM which revealed increasing bilirubin now of 5.1, ALT and AST also slightly increased, alkaline phosphatase slightly decreased. White blood cell count elevated now at 19,000. He is making urine. Pain is being controlled with IV narcotics. The patient apparently has had a sleeve converted to bypass for reasons of sleeve leak. I discussed this case with Dr. Davies by phone after seeing the increasing liver enzymes knowing our working diagnosis is a sending cholangitis. Her opinion was that early transfer to a tertiary care center that may be able to complete an ERCP despite the significant obesity and history of bypass should be done sooner than later. I agree with that opinion. I discussed this also with Dr. Boo who also is in agreement that the patient is stable for transfer now however if he truly does have a sending cholangitis despite antibiotic therapy he could decompensate further. I then discussed the case with Dr. Hernandez. He is comfortable with the plans for transfer and will make appropriate arrangements. Through the nursing staff I notified the patient that this was our recommendation.
[2019-01-28] MEDS: HYDROmorphone 1 MG/ML 1 ML SYRINGE IVP PRN ×2 (20:31→23:02)
[2019-01-28] MEDS ORDERED: PANTOPRAZOLE 40 MG/10 ML VIAL IVP SCH (21:00)
[2019-01-29] MEDS: HYDROmorphone 1 MG/ML 1 ML SYRINGE IVP PRN ×3 (01:05→05:49)
[2019-01-29 06:04] VITALS: BP 127/77; PULSE 95; RESP 20; TEMP 97.8
[2019-01-29 17:59] LABS: Hepatitis B Core IgM Non-Reactive (Non-Reactive); Hepatitis B Surface Antigen Non-Reactive (Non-Reactive); Hepatitis C IgG Antibody Non-Reactive (Non-Reactive)
== END 2019-01-29 04:30 | disposition short-term general hospital (02) | DRG 871 ==
LOC: EC 05:50 → 2SICU 12:51
PROVIDERS: ADMIT Internal Medicine; ATTEND Internal Medicine
PROC: 06HM33Z Insertion of Infusion Device into Right Femoral Vein, Percutaneous Approach (ICD-10-PCS; principal; 2019-01-28)
DX: A41.9 Sepsis, unspecified organism (principal); R65.21 Severe sepsis with septic shock; Z68.43 Body mass index [BMI] 50.0-59.9, adult; E87.2 Acidosis; B17.9 Acute viral hepatitis, unspecified; K82.1 Hydrops of gallbladder; K83.09 Other cholangitis; E66.01 Morbid (severe) obesity due to excess calories; R16.0 Hepatomegaly, not elsewhere classified; K76.0 Fatty (change of) liver, not elsewhere classified; R59.1 Generalized enlarged lymph nodes; I10 Essential (primary) hypertension; K57.30 Diverticulosis of large intestine without perforation or abscess without bleeding; K59.00 Constipation, unspecified; M10.9 Gout, unspecified; I87.2 Venous insufficiency (chronic) (peripheral); M19.90 Unspecified osteoarthritis, unspecified site; M76.9 Unspecified enthesopathy, lower limb, excluding foot; G89.29 Other chronic pain; M54.9 Dorsalgia, unspecified; F10.10 Alcohol abuse, uncomplicated; Z71.6 Tobacco abuse counseling; F17.290 Nicotine dependence, other tobacco product, uncomplicated; Z79.899 Other long term (current) drug therapy; Z98.84 Bariatric surgery status; Z86.010 Personal history of colon polyps; Z87.19 Personal history of other diseases of the digestive system; Z98.890 Other specified postprocedural states
CPT/HCPCS: 36415; 36556; 71045; 71046; 74177; 76705; 80053; 80074; 80329; 81001; 82150; 83605; 83690; 84484; 85025; 85610; 85730; 87040; 93005; 96361; 96365; 96367; 96375; 96376; 99285

== ENCOUNTER 2019-02-09 06:04 | Emergency (ER) | payer OTHER ==
--- NOTE | 2019-02-09 06:26 | ED ---
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 Patient states that last night he had a chili dog he states he then began experiencing sharp right upper quadrant abdominal pain without radiation. He also had nausea vomiting and loose stools. Patient states during his visit at [facility] he was diagnosed with "gallbladder infection" and discharged with ciprofloxcin and flagyll. Patient states his endoscopy was negative for ulcer and there was no additional complications of his previous bariatric surgery. Patient states they attributed his symptoms at that time to his gallbladder. Patient states symptoms were relatively controlled after discharged until yesterday evening. Patient denies fevers, admits to chills. Denies chest pain, SOB. Patient denies melena, hematochezia. WHen s akin returned for recurrent symptoms at [facility] he had significantly elevated transaminases as well a bilirubin and alkaline phosphatase. He was then transferred to our facility after discussing case with Dr. Olson who accepted transfer. (Court [place]) - Related Data Home Medications Medication Instructions Recorded Confirmed Folic Acid 1 mg PO DAILY 01/14/16 02/09/19 oxyCODONE-APAP 7.5-325MG [Percocet 1 tab PO TID PRN 01/14/16 02/09/19 7.5-325 mg] Allopurinol [Zyloprim] 300 mg PO DAILY PRN 01/25/19 02/09/19 Ergocalciferol [Vitamin D2 50,000 unit PO FR 01/25/19 02/09/19 (DRISDOL)] Metoprolol Tartrate [Lopressor] 50 mg PO BID 01/25/19 02/09/19 Furosemide [Lasix] 20 mg PO DAILY PRN 01/28/19 02/09/19 Gabapentin [Neurontin] 300 mg PO TID 01/28/19 02/09/19 Tetrahydrozoline 0.05% Ophth 1 drop BOTH EYES DAILY PRN 01/28/19 02/09/19 [Visine Eye Drops] Albuterol Inhaler [Ventolin Hfa 1 - 2 puff INHALATION RT-Q6H PRN 02/09/1902/09 Inhaler] Ciprofloxacin HCl [Cipro] 500 mg PO BID 02/09/19 02/09/19 Multivitamins, Thera [Multivitamin 1 tab PO DAILY 02/09/19 02/09/19 (formulary)] metroNIDAZOLE [Flagyl] 500 mg PO Q8H 02/09/19 02/09/19 Previous Rx's Medication Instructions Recorded Omeprazole 40 mg PO DAILY #90 capsule. 01/10/19 Allergies Allergy/AdvReac Type Severity Reaction Status Date / Time No Known Allergies Allergy Verified 02/09/19 07:28 Review of Systems ROS Other: All systems not noted in ROS Statement are negative. <Court [place] - Last Filed: 02/09/19 07:55> ROS Other: All systems not noted in ROS Statement are negative. <Dereck Arnett - Last Filed: 02/09/19 13:44> ROS Statement: Those systems with pertinent positive or pertinent negative responses have been documented in the HPI. Past Medical History Past Medical History: Hypertension Additional Past Medical History / Comment(s): Glasses, loose and chipped teeth, Diverticulitis, Gout, Polyps, Back pain, Arthritis, lung abcess 03/06/15 Pt has been seeing physician in [place] for leak in sleeve, venous insufficiency in Left leg, RIght hip has spur, gallstones, History of Any Multi-Drug Resistant Organisms: None Reported Past Surgical History: Bariatric Surgery, Orthopedic Surgery, Tonsillectomy Additional Past Surgical History / Comment(s): Right and Left ACL, polyps removed, sleeve gastrectomy August 2013, Gastric leak September 2014, March 2015 Gastric Bypass performed by ([facility] [place]) Past Anesthesia/Blood Transfusion Reactions: No Reported Reaction Past Psychological History: No Psychological Hx Reported Smoking Status: Current some day smoker Past Alcohol Use History: Daily Past Drug Use History: None Reported <Court [place] - Last Filed: 02/09/19 07:55> General Exam Limitations: no limitations <Court [place] - Last Filed: 02/09/19 07:55> - General Exam Comments Initial Comments: General: The patient is awake and alert, in no distress Eye: +3 mm pupils are equal, round and reactive to light, extra-ocular movements are intact. No nystagmus. There is normal conjunctiva bilaterally. No signs of icterus. Ears, nose, mouth and throat: There are moist mucous membranes and no oral lesions. Neck: The neck is supple, there is no tenderness or JVD. Cardiovascular: There is a regular rate and rhythm. No murmur, rub or gallop is appreciated. Respiratory: Lungs are clear to auscultation, respirations are non-labored, breath sounds are equal. No wheezes, stridor, rales, or rhonchi. Gastrointestinal: Soft, non-obsese, abdomen tendern to palpation of the RUQ remaining abdomen is nontender and without masses or organomegaly noted. There is guarding. NO rebound. Bowel sounds are unremarkable. Musculoskeletal: Normal ROM, no tenderness. Strength 5/5. Sensation intact. Pulses equal bilaterally 2+. Neurological: A&O x 3. CN II-XII intact grossly, There are no obvious motor or sensory deficits. Coordination appears grossly intact. Speech is normal. Skin: Skin is warm and dry and no rashes or lesions are noted. Psychiatric: Cooperative, appropriate mood & affect, normal judgment. (Court [place]) Course <Dereck Arnett - Last Filed: 02/09/19 13:44> Vital Signs 02/09/19 02/09/19 02/09/19 06:06 07:28 09:02 Temperature 99.0 F 98.9 F Pulse Rate 100 102 H 102 H Respiratory 19 22 20 Rate Blood Pressure 137/62 115/72 98/60 O2 Sat by Pulse 92 L 95 99 Oximetry 02/09/19 02/09/19 02/09/19 10:09 11:10 13:16 Temperature Pulse Rate 100 99 89 Respiratory 20 20 20 Rate Blood Pressure 105/63 108/70 95/60 O2 Sat by Pulse 96 96 96 Oximetry - Reevaluation(s) Reevaluation #1: The patient was transferred from an outside facility this facility due to apparent cholecystitis with the elevated bilirubin and liver enzymes. Patient is a gastric sleeve patient. Dr. Jasvir poe come the emergency department and the patient was recommended for transfer to [facility] they are able to do ERCPs and more complex care for gastric sleeve patients. Patient is pending transfer. (Dereck Arnett) Medical Decision Making <Court [place] - Last Filed: 02/09/19 07:55> - Medical Decision Making 63yo male with hx of galls stones/gallbladder disease diagnosed at [facility], presenting to the ER for cc of RUQ pain, abnormal labs. Transfer from [facility]. Concern for Acute cholecystitis vs stone of CBD. Patient will be admitted for ESRP vs cholecystectomy. Dr. Arnett recommended admission to Dr. Tomlinson, GI and general surgery on consult. Pt given zosyn prior to arrival. Dilaudid and zofran PRN. IV fluids running. (Court [place]) Disposition Is patient prescribed a controlled substance at d/c from ED?: No Time of Disposition: 06:52 Decision to Admit Reason: Admit from EC Decision Date: 02/09/19 Decision Time: 06:52 <[address] [place] - Last Filed: 02/09/19 07:55> <Derekc Arnett - Last Filed: 02/09/19 13:44> Clinical Impression: Gallstones, Elevated transaminase level, Elevated alkaline phosphatase level, Elevated bilirubin, RUQ pain, Nausea and vomiting Disposition: ADMITTED IP TO [facility] Condition: Stable Referrals: None,Stated [Primary Care Provider] - 1-2 days
[2019-02-09] MEDS ORDERED: ONDANSETRON 4 MG/2 ML VIAL IVP PRN (06:49)
[2019-02-09] MEDS ORDERED: ACETAMINOPHEN TAB 325 MG TAB PO PRN (06:49)
[2019-02-09] MEDS ORDERED: NALOXONE 0.4 MG/ML 1 ML VIAL IV PRN (06:49)
[2019-02-09] MEDS: HYDROmorphone 0.5 MG/0.5 ML SYRINGE IVP PRN ×4 (07:22→17:04)
[2019-02-09] MEDS: SODIUM CHLORIDE 0.9% 1,000 ML IV SCH ×2 (07:23→17:05)
[2019-02-09 09:04] VITALS: RESP 20
--- NOTE | 2019-02-09 09:13 | P.PN ---
Progress Note - Text Progress Note Date: 02/09/19 Patient seen and evaluated. He has history of noncompliance. Patient was in the emergency room less than 2 weeks ago with ascending cholangitis secondary to common bile duct obstruction from gallstones. He was transferred to [facility] for possible surgical intervention. Per patient's report, no surgery was performed with the exception of the upper scope to exclude ulcers. He was told "stones will pass on its own.". He gone home and ate a chili cheese dog this morning. He reports acute onset right upper quadrant abdominal pain. He was transferred from [place] secondary to elevated LFTs and recurrent pain. He has dark urine and hyperbilirubinemia. Clinical symptoms consistent with recurrent common bile duct obstruction. Recommend transfer to [facility] for ERCP
[2019-02-09] MEDS ORDERED: PIPERACILLIN-TAZOBACTAM 3.375 GM in SODIUM CHLORIDE 0.9% 100 ML IVPB STA (17:08)
[2019-02-09 18:28] VITALS: BP 173/80; PULSE 89; TEMP 98.7
== END 2019-02-09 18:53 | disposition short-term general hospital (02) ==
LOC: EC 06:04 → 4SSUR 07:27 → UNDOADMIN 07:27 → EC 18:53
DX: K80.20 Calculus of gallbladder without cholecystitis without obstruction (principal); R74.0 Nonspecific elevation of levels of transaminase and lactic acid dehydrogenase [LDH]; R74.8 Abnormal levels of other serum enzymes; R79.89 Other specified abnormal findings of blood chemistry; I10 Essential (primary) hypertension; M19.90 Unspecified osteoarthritis, unspecified site; M10.9 Gout, unspecified; F17.200 Nicotine dependence, unspecified, uncomplicated; Z79.891 Long term (current) use of opiate analgesic; Z79.899 Other long term (current) drug therapy; Z86.19 Personal history of other infectious and parasitic diseases; Z98.84 Bariatric surgery status
CPT/HCPCS: 99285; 96365; 96375 ×2; 96376 ×3; J2543; J2405; J1170

== ENCOUNTER 2021-04-05 19:13 | Observation (INO) | payer OTHER ==
[2021-04-05] MEDS ORDERED: MORPHINE SULFATE 4 MG/ML SYRINGE IVP STA (19:40)
[2021-04-05 20:15] LABS: ALT 27 U/L (4-49); AST 80 U/L (17-59); African American GFR (CKD) >90 (>60 ml/min/1.73 sqM); Albumin 2.8 g/dL (3.5-5.0); Alkaline Phosphatase 215 U/L (38-126); Amylase 37 U/L (30-110); Anion Gap 0 mmol/L; Blood Urea Nitrogen 8 mg/dL (9-20); Calcium 8.3 mg/dL (8.4-10.2); Carbon Dioxide 34 mmol/L (22-30); Chloride 104 mmol/L (98-107); Glucose 98 mg/dL (74-99); INR 1.5 (<1.2); Lipase 17 U/L (23-300); Non-African American GFR(CKD) 89 (>60 ml/min/1.73 sqM); Partial Thromboplastin Time 28.8 sec (22.0-30.0); Prothrombin Time 15.6 sec (9.0-12.0); Sodium 138 mmol/L (137-145); Total Bilirubin 4.8 mg/dL (0.2-1.3); Total Protein 7.5 g/dL (6.3-8.2)
[2021-04-05] MEDS: FUROSEMIDE 10 MG/ML 4 ML VIAL IV SCH (20:33)
[2021-04-05 20:35] LABS: Basophils # (A) 0.1 k/uL (0-0.2); Basophils % (A) 1 %; Eosinophils # (A) 0.2 k/uL (0-0.7); Eosinophils % (A) 2 %; HCT 39.1 % (39.0-53.0); HGB 12.5 gm/dL (13.0-17.5); Lymphocytes # (A) 1.4 k/uL (1.0-4.8); Lymphocytes % (A) 16 %; MCH 38.3 pg (25.0-35.0); MCHC 32.1 g/dL (31.0-37.0); MCV 119.4 fL (80.0-100.0); Macrocytosis Marked; Mean Platelet Volume 9.4; Monocytes # (A) 0.7 k/uL (0-1.0); Monocytes % (A) 8 %; Neutrophils # (A) 6.2 k/uL (1.3-7.7); Neutrophils % (A) 71 %; Platelet Count 169 k/uL (150-450); RBC 3.27 m/uL (4.30-5.90); RDW 15.6 % (11.5-15.5); WBC 8.7 k/uL (3.8-10.6)
--- NOTE | 2021-04-05 20:41 | US ---
EXAMINATION TYPE: US scrotum with doppler. Grayscale and color Doppler Duplex imaging performed of jese herrera scrotum. DATE OF EXAM: 04/05/2021 COMPARISON: NONE CLINICAL HISTORY: scrotal swelling. EXAM MEASUREMENTS: TESTICLES: Right Testicle: 2.9 x 2.4 x 2.7 cm Left Testicle: 3.6 x 2.3 x 2.2 cm EPIDIDYMIS HEAD: Right Epididymis: 0.8 cm Left Epididymis: 1.1 cm Doppler performed to assess for testicular vascularity; good bilateral color flow and arterial wavef orms are seen. There is no evidence of testicular torsion. Venous flow not detected this is believe d to be do to depth. Presence of hydroceles: none visualized Presence of varicoceles: none visualized Extensive skin thickening at 3.5cm with severe edema. IMPRESSION: No evidence of testicular torsion or mass. No evidence of epididymal mass. Significant sk in thickening and edema is demonstrated.
[2021-04-05 21:05] LABS: Appearance,Urine Clear (Clear); Bilirubin,Urine Negative (Negative); Blood,Urine Small (Negative); Color,Urine Light Yellow; Glucose,Urine (UA) Negative (Negative); Hyaline Casts,Urine 1 /lpf (0-2); Ketones,Urine Negative (Negative); Leukocyte Esterase,Urine Trace (Negative); Nitrite,Urine Negative (Negative); PH, Urine 6.5 (5.0-8.0); Protein,Urine Negative (Negative); RBC,Urine 7 /hpf (0-5); Specific Gravity,Urine 1.006 (1.001-1.035); Squamous Epithelial Cell,Urine <1 /hpf (0-4); Urobilinogen,Urine <2.0 mg/dL (<2.0); WBC,Urine 6 /hpf (0-5)
[2021-04-05] MEDS ORDERED: NALOXONE 0.4 MG/ML 1 ML VIAL IV PRN (21:18)
--- NOTE | 2021-04-05 21:20 | US ---
EXAMINATION TYPE: US gallbladder DATE OF EXAM: 04/05/2021 COMPARISON: NONE CLINICAL HISTORY: hyperbilirubinemia. EXAM MEASUREMENTS: Liver Length: unable to penetrate well enough to measure Gallbladder Wall: 0.4 cm CBD: non-visualization Right Kidney: not seen Gross morbid obesity with interstitial edema. Supine patient unable to move. Non-diagnostic study. Pancreas: not seen Liver: unable to penetrate/ascites Gallbladder: not well visualized Evidence for sonographic Bey's sign: no CBD: not seen Right Kidney: not seen IMPRESSION: Limited exam shows no evidence of dilated ducts. Gallbladder not well seen. No obvious ga llstones
--- NOTE | 2021-04-05 21:23 | XR ---
EXAMINATION TYPE: XR chest 1V portable DATE OF EXAM: 04/05/2021 COMPARISON: Today HISTORY: Limb swelling. TECHNIQUE: 2 views FINDINGS: There is no heart failure nor confluent pneumonic infiltrate. Costophrenic angles are clear . There are chest leads. IMPRESSION: No active cardiopulmonary disease. No change. Exam limited by patient size.
--- NOTE | 2021-04-05 21:37 | ED ---
General Adult HPI - General Chief complaint: Extremity Problem,Nontraumatic Stated complaint: leg swelling Time Seen by Provider: 04/05/21 19:13 Source: patient, EMS, RN notes reviewed, old records reviewed Mode of arrival: EMS Limitations: no limitations - History of Present Illness Initial comments: Is a 66-year-old male with an extensive past medical history consisting of hypertension, chronic anasarca, chronic alcohol abuse, liver cirrhosis, shira lithiasis, gastric sleeve surgery who presents emergency Department as a transfer from [facility]. Patient was transferred for acute onset of scrotal swelling over the last 3 days as well as slightly worsening generalized anasarca. He is chronically expressing anasarca in his abdomen, bilateral lower extremities. It was worked up and outside facility a few months back, and it did improve a little initially but he chronically has leg swelling and abdominal swelling which he states is a little bit better than normal. However now he is complaining of three-day history of worsening scrotal swelling. Denies difficulty urinating but does endorse scrotal pain from the swelling. States this has happened previously. He is supposed water pills at home, however he states he does occasionally miss them because it makes him have to get up and use the restroom frequently. He denies any chest pain, shortness of breath, abdominal pain, nausea, vomiting, diarrhea. States he last week alcohol 10-15 days ago. Has no other acute complaints at this time. Patient was found at the outside hospital to have relatively normal LFTs, slightly elevated bilirubin to 4, however here has had bilirubins higher. He was sent here for IV diuresis as well as evaluation by GI, which he have covering starting tomorrow. - Related Data Home Medications Medication Instructions Recorded Confirmed oxyCODONE-APAP 7.5-325MG [Percocet 1 tab PO TID PRN 01/14/16 04/05/21 7.5-325 mg] Metoprolol Tartrate [Lopressor] 50 mg PO BID 01/25/19 04/05/21 Gabapentin [Neurontin] 300 mg PO TID PRN 01/28/19 04/05/21 Albuterol Sulfate [Proair Hfa] 2 puff INHALATION RT-Q6H PRN 04/05/21 04/05/21 Cyclobenzaprine [Flexeril] 10 mg PO HS PRN 04/05/21 04/05/21 Meloxicam [Mobic] 15 mg PO DAILY 04/05/21 04/05/21 Montelukast [Singulair] 10 mg PO DAILY 04/05/21 04/05/21 Nicotine 21Mg/24Hr Patch [Habitrol] 1 patch TRANSDERM DAILY 04/05/21 04/05/21 Allergies Allergy/AdvReac Type Severity Reaction Status Date / Time No Known Allergies Allergy Verified 04/05/21 19:50 Review of Systems ROS Statement: Those systems with pertinent positive or pertinent negative responses have been documented in the HPI. Review of Systems: CONST: Denies fever EYES: Denies blurry vision ENT: Denies nasal congestion C/V: Denies Chest pain RESP: Denies shortness of breath GI: Denies abdominal pain : Endorses scrotal swelling. SKIN: Denies rash. MSK: Denies joint pain. NEURO: Denies headache ROS Other: All systems not noted in ROS Statement are negative. Past Medical History Past Medical History: Hypertension Additional Past Medical History / Comment(s): Glasses, loose and chipped teeth, Diverticulitis, Gout, Polyps, Back pain, Arthritis, lung abcess 03/06/15 Pt has been seeing physician in [place] for leak in sleeve, venous insufficiency in Left leg, RIght hip has spur, gallstones, History of Any Multi-Drug Resistant Organisms: None Reported Past Surgical History: Bariatric Surgery, Orthopedic Surgery, Tonsillectomy Additional Past Surgical History / Comment(s): Right and Left ACL, polyps removed, sleeve gastrectomy August 2013, Gastric leak September 2014, March 2015 Gastric Bypass performed by ([facility] [place] Past Anesthesia/Blood Transfusion Reactions: No Reported Reaction Past Psychological History: No Psychological Hx Reported Smoking Status: Former smoker Past Alcohol Use History: Daily Past Drug Use History: None Reported General Exam - General Exam Comments Initial Comments: General: Patient is morbidly obese. In no acute distress. HEAD: Normal with no signs of head trauma. EYES: PERRLA, EOMI, conjunctiva normal, no discharge. Patient has mild scleral icterus. ENT: Hearing grossly intact, normal oropharynx. RESPIRATORY: Clear breath sounds bilaterally. No wheezes, rales, or rhonchi. C/V: Regular rate and rhythm. Patient is tachycardic, ranging from 100-110 intermittently. Seems to be related with motion. Patient has significant 3+ pitting edema to bilateral lower extremities which she states is chronic. S1 and S2 auscultated. Peripheral pulses are intact throughout. ABD: Abd is soft, nontender, nondistended EXT: Normal range of motion, no obvious deformity SKIN: No rashes or lesions observed on exposed skin. NEURO: Alert and oriented 4. No focal deficits. Limitations: no limitations Course Vital Signs 04/05/21 04/05/21 19:20 20:25 Temperature 97.7 F Pulse Rate 116 H 115 H Respiratory 22 22 Rate Blood Pressure 130/90 128/90 O2 Sat by Pulse 96 97 Oximetry Medical Decision Making - Medical Decision Making Based on the patient's presentation and physical exam, as well as his laboratory studies which were obtained at the outside facility, I believe he is likely expressing anasarca likely secondary to somewhat noncompliance with her his Lasix, and also possible he from his liver cirrhosis. We will obtain repeat laboratory studies as well as cardiac work polys here. Chest x-ray will also be obtained in addition to gallbladder and scrotal ultrasound. He was in agreement this plan. He will be given IV Lasix as well as pain medications. EKG showed no signs of acute ischemia but sinus tachycardia. Laboratory studies are remarkable for a macrocytic anemia with hemoglobin of 12.5. Coags are mildly elevated, with an INR of 1.5. Electrolytes are remarkable for an elevated total bilirubin of 4.8 which seems to be typical for him based on prior values in her system. LFTs and alk phos are mildly elevated. Troponin is within normal limits and BNP is also within normal limits. Remainder of the labs are unremarkable. Bladder ultrasound was unremarkable. Scrotal ultrasound showed edema but was otherwise unremarkable. Chest x-ray appears to me that he has some mild scleral edema, likely secondary from his sternal anasarca. It was read as no CHF. On reevaluation, patient remains relatively unchanged. I discussed the results and laboratory studies with him. Like to admit the hospital for further evaluation. He was in agreement this plan. Patient's primary physician who admits to Dr. Siu is currently being covered by Dr. thompson. I spoke with Dr. thompson over the phone and he was in agreement this plan. Dr. Davies of gastroenterology returns to the hospital tomorrow and she'll be consulted. We'll also consult cardiology or Dr. hunt request. Patient was admitted in serious condition.Patient will be continued on 3 times a day Lasix addition to his home medications. At the request of Dr. thompson, I will also start the patient on low-dose spironolactone. - Lab Data Result diagrams: 04/05/21 19:56 04/05/21 19:56 Lab Results 04/05/21 04/05/21 04/05/21 Range/Units 19:56 19:56 19:56 WBC 8.7 (3.8-10.6) k/uL RBC 3.27 L (4.30-5.90) m/uL Hgb 12.5 L (13.0-17.5) gm/dL Hct 39.1 (39.0-53.0) % MCV 119.4 H (80.0-100.0) fL MCH 38.3 H (25.0-35.0) pg MCHC 32.1 (31.0-37.0) g/dL RDW 15.6 H (11.5-15.5) % Plt Count 169 (150-450) k/uL MPV 9.4 Neutrophils % 71 % Lymphocytes % 16 % Monocytes % 8 % Eosinophils % 2 % Basophils % 1 % Neutrophils # 6.2 (1.3-7.7) k/uL Lymphocytes # 1.4 (1.0-4.8) k/uL Monocytes # 0.7 (0-1.0) k/uL Eosinophils # 0.2 (0-0.7) k/uL Basophils # 0.1 (0-0.2) k/uL Macrocytosis Marked A PT 15.6 H (9.0-12.0) sec INR 1.5 H (<1.2) APTT 28.8 (22.0-30.0) sec Sodium 138 (137-145) mmol/L Potassium 4.0 (3.5-5.1) mmol/L Chloride 104 (98-107) mmol/L Carbon Dioxide 34 H (22-30) mmol/L Anion Gap 0 mmol/L BUN 8 L (9-20) mg/dL Creatinine 0.91 (0.66-1.25) mg/dL Est GFR (CKD-EPI)AfAm >90 (>60 ml/min/1.73 sqM) Est GFR (CKD-EPI)NonAf 89 (>60 ml/min/1.73 sqM) Glucose 98 (74-99) mg/dL Plasma Lactic Acid Dave (0.7-2.0) mmol/L Calcium 8.3 L (8.4-10.2) mg/dL Total Bilirubin 4.8 H (0.2-1.3) mg/dL AST 80 H (17-59) U/L ALT 27 (4-49) U/L Alkaline Phosphatase 215 H (38-126) U/L Troponin I (0.000-0.034) ng/mL NT-Pro-B Natriuret Pep pg/mL Total Protein 7.5 (6.3-8.2) g/dL Albumin 2.8 L (3.5-5.0) g/dL Amylase 37 (30-110) U/L Lipase 17 L (23-300) U/L Urine Color Urine Appearance (Clear) Urine pH (5.0-8.0) Ur Specific Blount (1.001-1.035) Urine Protein (Negative) Urine Glucose (UA) (Negative) Urine Ketones (Negative) Urine Blood (Negative) Urine Nitrite (Negative) Urine Bilirubin (Negative) Urine Urobilinogen (<2.0) mg/dL Ur Leukocyte Esterase (Negative) Urine RBC (0-5) /hpf Urine WBC (0-5) /hpf Ur Squamous Epith Cells (0-4) /hpf Hyaline Casts (0-2) /lpf 04/05/21 04/05/21 04/05/21 Range/Units 19:56 19:56 19:56 WBC (3.8-10.6) k/uL RBC (4.30-5.90) m/uL Hgb (13.0-17.5) gm/dL Hct (39.0-53.0) % MCV (80.0-100.0) fL MCH (25.0-35.0) pg MCHC (31.0-37.0) g/dL RDW (11.5-15.5) % Plt Count (150-450) k/uL MPV Neutrophils % % Lymphocytes % % Monocytes % % Eosinophils % % Basophils % % Neutrophils # (1.3-7.7) k/uL Lymphocytes # (1.0-4.8) k/uL Monocytes # (0-1.0) k/uL Eosinophils # (0-0.7) k/uL Basophils # (0-0.2) k/uL Macrocytosis PT (9.0-12.0) sec INR (<1.2) APTT (22.0-30.0) sec Sodium (137-145) mmol/L Potassium (3.5-5.1) mmol/L Chloride (98-107) mmol/L Carbon Dioxide (22-30) mmol/L Anion Gap mmol/L BUN (9-20) mg/dL Creatinine (0.66-1.25) mg/dL Est GFR (CKD-EPI)AfAm (>60 ml/min/1.73 sqM) Est GFR (CKD-EPI)NonAf (>60 ml/min/1.73 sqM) Glucose (74-99) mg/dL Plasma Lactic Acid Dave 1.7 (0.7-2.0) mmol/L Calcium (8.4-10.2) mg/dL Total Bilirubin (0.2-1.3) mg/dL AST (17-59) U/L ALT (4-49) U/L Alkaline Phosphatase (38-126) U/L Troponin I 0.013 (0.000-0.034) ng/mL NT-Pro-B Natriuret Pep 251 pg/mL Total Protein (6.3-8.2) g/dL Albumin (3.5-5.0) g/dL Amylase (30-110) U/L Lipase (23-300) U/L Urine Color Urine Appearance (Clear) Urine pH (5.0-8.0) Ur Specific Blount (1.001-1.035) Urine Protein (Negative) Urine Glucose (UA) (Negative) Urine Ketones (Negative) Urine Blood (Negative) Urine Nitrite (Negative) Urine Bilirubin (Negative) Urine Urobilinogen (<2.0) mg/dL Ur Leukocyte Esterase (Negative) Urine RBC (0-5) /hpf Urine WBC (0-5) /hpf Ur Squamous Epith Cells (0-4) /hpf Hyaline Casts (0-2) /lpf 04/05/21 Range/Units 20:49 WBC (3.8-10.6) k/uL RBC (4.30-5.90) m/uL Hgb (13.0-17.5) gm/dL Hct (39.0-53.0) % MCV (80.0-100.0) fL MCH (25.0-35.0) pg MCHC (31.0-37.0) g/dL RDW (11.5-15.5) % Plt Count (150-450) k/uL MPV Neutrophils % % Lymphocytes % % Monocytes % % Eosinophils % % Basophils % % Neutrophils # (1.3-7.7) k/uL Lymphocytes # (1.0-4.8) k/uL Monocytes # (0-1.0) k/uL Eosinophils # (0-0.7) k/uL Basophils # (0-0.2) k/uL Macrocytosis PT (9.0-12.0) sec INR (<1.2) APTT (22.0-30.0) sec Sodium (137-145) mmol/L Potassium (3.5-5.1) mmol/L Chloride (98-107) mmol/L Carbon Dioxide (22-30) mmol/L Anion Gap mmol/L BUN (9-20) mg/dL Creatinine (0.66-1.25) mg/dL Est GFR (CKD-EPI)AfAm (>60 ml/min/1.73 sqM) Est GFR (CKD-EPI)NonAf (>60 ml/min/1.73 sqM) Glucose (74-99) mg/dL Plasma Lactic Acid Dave (0.7-2.0) mmol/L Calcium (8.4-10.2) mg/dL Total Bilirubin (0.2-1.3) mg/dL AST (17-59) U/L ALT (4-49) U/L Alkaline Phosphatase (38-126) U/L Troponin I (0.000-0.034) ng/mL NT-Pro-B Natriuret Pep pg/mL Total Protein (6.3-8.2) g/dL Albumin (3.5-5.0) g/dL Amylase (30-110) U/L Lipase (23-300) U/L Urine Color Light Yellow Urine Appearance Clear (Clear) Urine pH 6.5 (5.0-8.0) Ur Specific Blount 1.006 (1.001-1.035) Urine Protein Negative (Negative) Urine Glucose (UA) Negative (Negative) Urine Ketones Negative (Negative) Urine Blood Small H (Negative) Urine Nitrite Negative (Negative) Urine Bilirubin Negative (Negative) Urine Urobilinogen <2.0 (<2.0) mg/dL Ur Leukocyte Esterase Trace H (Negative) Urine RBC 7 H (0-5) /hpf Urine WBC 6 H (0-5) /hpf Ur Squamous Epith Cells <1 (0-4) /hpf Hyaline Casts 1 (0-2) /lpf - EKG Data -: EKG Interpreted by Me EKG Comments: 12-lead Electrocardiogram Interpretation Note EKG was reviewed and interpreted by myself. 12-lead ECG performed at 2040 is interpreted by me as revealing sinus tachycardia with PACs at a rate of 121 beats per minute. [place] is normal. HI interval is 150 ms, QRS duration is 80 ms, QTc is 457 ms.. There were no ST or T wave abnormalities to suggest myocardial ischemia or injury. R wave progression across the precordium was satisfactory. By my interpretation this EKG is non-diagnostic for acute ischemia. Disposition Clinical Impression: Anasarca, Scrotal swelling, History of cirrhosis, History of alcohol abuse, Hyperbilirubinemia, Sinus tachycardia, Fluid overload Disposition: ADMITTED IP TO THIS HOSP Condition: Serious Referrals: Edison Reyes MD [Primary Care Provider] - 1-2 days
[2021-04-05] MEDS ORDERED: ALBUTEROL NEBULIZED 2.5 MG/3 ML INHALATION PRN (21:45)
[2021-04-06] MEDS: FUROSEMIDE 10 MG/ML 4 ML VIAL IV SCH ×3 (01:07→16:12)
[2021-04-06] MEDS: HEPARIN SODIUM,PORCINE/PF 5,000 UNIT/0.5 ML SYRINGE SQ SCH ×3 (01:07→16:12)
[2021-04-06] MEDS: MORPHINE SULFATE 4 MG/ML SYRINGE IV PRN ×2 (01:08→09:36)
[2021-04-06 07:33] LABS: ALT 21 U/L (4-49); AST 52 U/L (17-59); African American GFR (CKD) >90 (>60 ml/min/1.73 sqM); Albumin 2.3 g/dL (3.5-5.0); Alkaline Phosphatase 177 U/L (38-126); Anion Gap 2 mmol/L; Blood Urea Nitrogen 8 mg/dL (9-20); Carbon Dioxide 32 mmol/L (22-30); Chloride 105 mmol/L (98-107); Glucose 92 mg/dL (74-99); Magnesium 1.9 mg/dL (1.6-2.3); Non-African American GFR(CKD) 80 (>60 ml/min/1.73 sqM); Potassium 3.7 mmol/L (3.5-5.1); Sodium 139 mmol/L (137-145); Total Bilirubin 4.8 mg/dL (0.2-1.3); Total Protein 6.2 g/dL (6.3-8.2)
[2021-04-06 08:18] LABS: HCT 36.7 % (39.0-53.0); HGB 11.7 gm/dL (13.0-17.5); MCH 38.1 pg (25.0-35.0); MCHC 31.9 g/dL (31.0-37.0); MCV 119.4 fL (80.0-100.0); Macrocytosis Marked; Mean Platelet Volume 8.3; Platelet Count 175 k/uL (150-450); RBC 3.07 m/uL (4.30-5.90); RDW 14.8 % (11.5-15.5); WBC 7.4 k/uL (3.8-10.6)
[2021-04-06] MEDS ORDERED: SPIRONOLACTONE 25 MG TAB PO SCH (09:00)
[2021-04-06] MEDS: NICOTINE 21MG/24HR PATCH TRANSDERM SCH (09:37)
[2021-04-06] MEDS: MELOXICAM 7.5 MG TAB PO SCH (09:37)
[2021-04-06] MEDS: MONTELUKAST 10 MG TAB PO SCH (09:37)
[2021-04-06] MEDS: METOPROLOL TARTRATE 50 MG TAB PO SCH ×2 (09:42→20:51)
--- NOTE | 2021-04-06 11:21 | US ---
EXAMINATION TYPE: US abdomen limited DATE OF EXAM: 04/06/2021 COMPARISON: Ultrasound gallbladder 04/05/2021 CLINICAL HISTORY: ascites. Ascites check Ascites seen lateral right side Limited scan IMPRESSION: Minimal ascites present.
--- NOTE | 2021-04-06 11:40 | P.CRDCN ---
History of Present Illness History of present illness: HISTORY OF PRESENTING ILLNESS This is a pleasant 66-year-old male past medical history significant for chronic nicotine dependence, alcohol abuse, liver cirrhosis, hypertension, chronic anasa rca, cholelithiasis, obstructive sleep apnea, obesity, gastric sleeve surgery. He does not follow with a swimmer. We have been asked to see in consultation for sinus tachycardia and pulmonary edema. Patient presents to the emergency department with worsening scrotal and lower extremity edema for 3 days. He states he was in the hospital in [place] in January was diagnosed with cellulitis and venous insufficiency was prescribed PRN Lasix 20mg daily for edema. He states he was doing well. Over the past week, his edema worsened and was told to take 40mg daily, however, over the past 3 days he felt the Lasix was not helping and decided to present to the emergency department. He denies any chest pain, shortness of breath, lightheadedness, dizziness, syncope or near syncope, abdominal pain, nausea, or vomiting. He does endorse constipation. He denies history of SD, Stroke, Coronary artery disease, or diabetes. He states he drinks 1 pint a day and smokes 1 Pack of cigarrettes every 3 days. He states he quit smoking and drinking alcohol last week. He states he has not taken his meto prolol in 2 days due to being at [facility]. DIAGNOSTICS EKG reveals sinus tachycardia, PACs, heart rate 121, no significant ST-T wave abnormalities. Telemetry tracings indicate sinus tachycardia, heart rate 90s1:15 Chest xray exam limited due to patient's size, no acute heart failure Laboratory reviewed, WBC 7.4, hemoglobin 11.7, platelets 175, INR 1.5, proBNP to 51, troponin negative 1, albumin 2.3, total bilirubin 4.8, sodium 139, potassium 3.7, BUN 8, serum current 0.9, COVID-19 negative Current home medications include metoprolol titrate 50 mg twice a day, Lasix 40 mg when necessary REVIEW OF SYSTEMS At the time of my exam: CONSTITUTIONAL: Denies fever or chills. CARDIOVASCULAR: Denies chest pain, shortness of breath, orthopnea, PND or palpitations. RESPIRATORY: Denies cough. GASTROINTESTINAL: Denies abdominal pain, diarrhea, constipation, nausea or vomiting. MUSCULOSKELETAL: Denies myalgias. NEUROLOGIC: Denies numbness, tingling, headacbe or weakness. ENDOCRINE: Denies fatigue, weight change, polydipsia or polyurina. GENITOURINARY: Denies burning, hematuria or urgency with micturation. HEMATOLOGIC: Denies history of anemia or bleeding. PHYSICAL EXAMINATION Blood pressure 116/65, heart rate 109, afebrile, saturations greater than 90% on room air CONSTITUTIONAL: No apparent distress. HEENT: Head is normocephalic. Pupils are equal, round. Sclerae anicteric. Mucous membranes of the mouth are moist. No JVD. No carotid bruit. CHEST EXAMINATION: Lungs are clear to auscultation. No chest wall tenderness is noted on palpation or with deep breathing. HEART EXAMINATION: Regular rate and rhythm. S1, S2 heard. No murmurs, gallops or rub. ABDOMEN: Soft, nontender. Positive bowel sounds. : Scrotal swelling noted EXTREMITIES: Redness to bilateral shins/calves, 2+ edema lower extremities bilaterally. NEUROLOGIC EXAMINATION: Patient is awake, alert and oriented x3. ASSESSMENT Scrotal edema and bilateral lower extremity edema likely anasarca due to liver cirrhosis Sinus tachycardia Liver cirrhosis Chronic anasarca Chronic nicotine dependence Alcohol abuse Obstructive sleep apnea History of hypertension Hypoalbuminemia could be contributing to edema PLAN Patient states he has not recieved his metoprolol tartrate in 2 days. Will restart metoprolol tartrate 50mg BID and monitor heart rate response Abdominal ultrasound ordered Obtain 2D echocardiogram and doppler study to assess cardiac structure and function. Continue IV Lasix Monitor I/Os, daily weights, renal function and electrolytes Further recommendations based on clinical course Nurse Practitioner note has been reviewed, I agree with a documented findings and plan of care. Patient was seen and examined. Past Medical History Past Medical History: Hypertension Additional Past Medical History / Comment(s): Glasses, loose and chipped teeth, Diverticulitis, Gout, Polyps, Back pain, Arthritis, lung abcess 03/06/15 Pt has been seeing physician in [place] for leak in sleeve, venous insufficiency in Left leg, RIght hip has spur, gallstones, History of Any Multi-Drug Resistant Organisms: None Reported Past Surgical History: Bariatric Surgery, Orthopedic Surgery, Tonsillectomy Additional Past Surgical History / Comment(s): Right and Left ACL, polyps removed, sleeve gastrectomy August 2013, Gastric leak September 2014, March [place] [place] Anesthesia/Blood Transfusion Reactions: No Reported Reaction Past Psychological History: No Psychological Hx Reported Additional Psychological History / Comment(s): Previous depression. Smoking Status: Current some day smoker Past Alcohol Use History: Daily Additional Past Alcohol Use History / Comment(s): "3-4 glasses of wine daily and one pint of [place] about 4 nights/week. Mixes it with [place] Lemonade or Fruit Punch as well." Cigars a few times a week. Past Drug Use History: None Reported Medications and Allergies Home Medications Medication Instructions Recorded Confirmed Type oxyCODONE-APAP 7.5-325MG [Percocet 1 tab PO TID PRN 01/14/16 04/05/21 History 7.5-325 mg] Metoprolol Tartrate [Lopressor] 50 mg PO BID 01/25/19 04/05/21 History Gabapentin [Neurontin] 300 mg PO TID PRN 01/28/19 04/05/21 History Albuterol Sulfate [Proair Hfa] 2 puff INHALATION RT-Q6H PRN 04/05/21 04/05/21 History Cyclobenzaprine [Flexeril] 10 mg PO HS PRN 04/05/21 04/05/21 History Meloxicam [Mobic] 15 mg PO DAILY 04/05/21 04/05/21 History Montelukast [Singulair] 10 mg PO DAILY 04/05/21 04/05/21 History Nicotine 21Mg/24Hr Patch [Habitrol] 1 patch TRANSDERM DAILY 04/05/21 04/05/21 History Furosemide [Lasix] 40 mg PO DAILY PRN 04/06/21 04/06/21 History Allergies Allergy/AdvReac Type Severity Reaction Status Date / Time No Known Allergies Allergy Verified 04/05/21 19:50 Physical Exam Vitals: Vital Signs Temp Pulse Pulse Resp BP BP Pulse Ox 04/06/21 03:52 98.3 F 109 H 16 116/65 95 04/05/21 23:01 97.3 F L 102 H 16 132/73 96 04/05/21 22:00 110 H 25 H 141/97 97 04/05/21 20:25 115 H 22 128/90 97 04/05/21 19:20 97.7 F 116 H 22 130/90 96 Intake and Output 01/30/22 01/31/22 01/31/22 22:59 06:59 14:59 Intake Total 250 Output Total 800 Balance -550 Intake: Oral 250 Output: Urine 800 Other: Voiding Method Indwelling Catheter Weight 176.901 kg Results 04/06/21 06:13 04/06/21 06:13 Cardiac Enzymes 04/05/21 04/05/21 04/06/21 Range/Units 19:56 19:56 06:13 AST 80 H 52 (17-59) U/L Troponin I 0.013 (0.000-0.034) ng/mL Coagulation 04/05/21 Range/Units 19:56 PT 15.6 H (9.0-12.0) sec APTT 28.8 (22.0-30.0) sec CBC 04/05/21 04/06/21 Range/Units 19:56 06:13 WBC 8.7 7.4 (3.8-10.6) k/uL RBC 3.27 L 3.07 L (4.30-5.90) m/uL Hgb 12.5 L 11.7 L (13.0-17.5) gm/dL Hct 39.1 36.7 L (39.0-53.0) % Plt Count 169 175 (150-450) k/uL Comprehensive Metabolic Panel 04/05/21 04/06/21 Range/Units 19:56 06:13 Sodium 138 139 (137-145) mmol/L Potassium 4.0 3.7 (3.5-5.1) mmol/L Chloride 104 105 (98-107) mmol/L Carbon Dioxide 34 H 32 H (22-30) mmol/L BUN 8 L 8 L (9-20) mg/dL Creatinine 0.91 0.99 (0.66-1.25) mg/dL Glucose 98 92 (74-99) mg/dL Calcium 8.3 L 8.0 L (8.4-10.2) mg/dL AST 80 H 52 (17-59) U/L ALT 27 21 (4-49) U/L Alkaline Phosphatase 215 H 177 H (38-126) U/L Total Protein 7.5 6.2 L (6.3-8.2) g/dL Albumin 2.8 L 2.3 L (3.5-5.0) g/dL Current Medications Generic Name Dose Route Start Last Admin Trade Name Freq PRN Reason Stop Dose Admin Albuterol Sulfate 2.5 mg 04/05/21 21:45 Albuterol Nebulized 2.5 Mg/3 Ml INHALATION RT-Q6H PRN Shortness Of Breath Cyclobenzaprine HCl 10 mg 04/05/21 21:45 Cyclobenzaprine 10 Mg Tab PO HS PRN Pain Furosemide 40 mg 04/05/21 19:45 04/06/21 01:07 Furosemide 10 Mg/Ml 4 Ml Vial IV 40 mg Q8HR DAYRON Administration Gabapentin 300 mg 04/05/21 21:45 Gabapentin 300 Mg Cap PO TID PRN Pain Heparin Sodium (Porcine) 5,000 unit 04/06/21 00:00 04/06/21 01:07 Heparin Sodium,Porcine/Pf 5,000 Unit/0.5 Ml Syringe SQ 5,000 unit Q8HR DAYRON Administration Meloxicam 15 mg 04/06/21 09:00 Meloxicam 7.5 Mg Tab PO DAILY [facility] Metoprolol Tartrate 50 mg 04/06/21 09:00 Metoprolol Tartrate 50 Mg Tab PO BID [facility] Montelukast Sodium 10 mg 04/06/21 09:00 Montelukast 10 Mg Tab PO DAILY [facility] Morphine Sulfate 4 mg 04/05/21 21:18 04/06/21 01:08 Morphine Sulfate 4 Mg/Ml Syringe IV 4 mg Q4HR PRN Administration Severe Pain Naloxone HCl 0.2 mg 04/05/21 21:18 Naloxone 0.4 Mg/Ml 1 Ml Vial IV Q2M PRN Opioid Reversal Nicotine 1 patch 04/06/21 09:00 Nicotine 21mg/24hr Patch TRANSDERM DAILY [facility] Oxycodone/Acetaminophen 1 each 04/05/21 21:45 Oxycodone-Apap 7.5-325mg 1 Each Tab PO TID PRN Pain Spironolactone 25 mg 04/06/21 09:00 Spironolactone 25 Mg Tab PO DAILY [facility] Intake and Output 04/05/21 04/06/21 04/06/21 22:59 06:59 14:59 Intake Total 250 Output Total 800 Balance -550 Intake: Oral 250 Output: Urine 800 Other: Voiding Method Indwelling Catheter Weight 176.901 kg 04/06/21 06:13 04/06/21 06:13
[2021-04-06] MEDS ORDERED: SPIRONOLACTONE 25 MG TAB PO ONE (12:30)
[2021-04-06] MEDS: NYSTATIN 100,000 UNIT/GM POWD 15 GM TOPICAL SCH ×2 (12:37→20:52)
--- NOTE | 2021-04-06 15:47 | P.CONS ---
History of Present Illness - Reason for Consult Consult date: 04/06/21 History of liver cirrhosis, ascites Requesting physician: Jabari E Sheet - Chief Complaint Edema - History of Present Illness This is 66-year-old male with a past medical history of hypertension, chronic anasarca, chronic alcohol abuse, liver cirrhosis, cholelithiasis, prior gastric sleeve surgery who presented to the emergency department as a transfer from [facility] for acute onset of scrotal swelling over last 3 days with worsening generalized anasarca. Gastroenterology was consulted for cirrhosis of the liver and ascites. Patient denies any previous knowledge of cirrhosis of the liver. He does admit that he has a long-standing history of alcoholism and was drinking anywhere from a 6 pack to a half a pint to one fifth a day for 30 years. He underwent an ultrasound of the gallbladder however the CBD and liver were not well visualized. It did state that he had some ascites there were no gallstones. Labs showed evidence of elevated LFTs with a total bilirubin of 4.8 AST 52 ALT 21 alkaline phosphatase 177. Patient's denying any shortness of lauren ath, abdominal pain, nausea, or vomiting. Review of Systems REVIEW OF SYSTEMS: CARDIOPULMONARY: No chest pain or shortness of breath. General anasarca, edema bilateral lower extremities Gastrointestinal: No abdominal pain or distention. No nausea or vomiting. No hematemesis, coffee-ground emesis. No rectal bleeding, or melena. GENITOURINARY: No dysuria or hematuria. Scrotal edema. MUSCULOSKELETAL: Reports normal range of motion., Joint pain. SKIN: No rashes. No jaundice. ENDOCRINE: No chills, fevers. No excessive weight gain or loss. No polydipsia or polyuria. PSYCHIATRIC: Unremarkable. NEUROLOGY: No change in mental status. Denies dizziness, headache. ENT: Vision unremarkable. CONSTITUTIONAL: No recent weight loss. No fever, chills, night sweats. Past Medical History Past Medical History: Hypertension Additional Past Medical History / Comment(s): Glasses, loose and chipped teeth, Diverticulitis, Gout, Polyps, Back pain, Arthritis, lung abcess 03/06/15 Pt has been seeing physician in [place] for leak in sleeve, venous insufficiency in Left leg, RIght hip has spur, gallstones, History of Any Multi-Drug Resistant Organisms: None Reported Past Surgical History: Bariatric Surgery, Orthopedic Surgery, Tonsillectomy Additional Past Surgical History / Comment(s): Right and Left ACL, polyps removed, sleeve gastrectomy August 2013, Gastric leak September 2014, March 2015 Gastric Bypass performed by ([facility] [place] Past Anesthesia/Blood Transfusion Reactions: No Reported Reaction Past Psychological History: No Psychological Hx Reported Additional Psychological History / Comment(s): Previous depression. Smoking Status: Current some day smoker Past Alcohol Use History: Daily Additional Past Alcohol Use History / Comment(s): "3-4 glasses of wine daily and one pint of [place] about 4 nights/week. Mixes it with [place] Lemonade or Fruit Punch as well." Cigars a few times a week. Past Drug Use History: None Reported Medications and Allergies Home Medications Medication Instructions Recorded Confirmed Type oxyCODONE-APAP 7.5-325MG [Percocet 1 tab PO TID PRN 01/14/16 04/05/21 History 7.5-325 mg] Metoprolol Tartrate [Lopressor] 50 mg PO BID 01/25/19 04/05/21 History Gabapentin [Neurontin] 300 mg PO TID PRN 01/28/19 04/05/21 History Albuterol Sulfate [Proair Hfa] 2 puff INHALATION RT-Q6H PRN 04/05/21 04/05/21 History Cyclobenzaprine [Flexeril] 10 mg PO HS PRN 04/05/21 04/05/21 History Meloxicam [Mobic] 15 mg PO DAILY 04/05/21 04/05/21 History Montelukast [Singulair] 10 mg PO DAILY 04/05/21 04/05/21 History Nicotine 21Mg/24Hr Patch [Habitrol] 1 patch TRANSDERM DAILY 04/05/21 04/05/21 History Furosemide [Lasix] 40 mg PO DAILY PRN 04/06/21 04/06/21 History Allergies Allergy/AdvReac Type Severity Reaction Status Date / Time No Known Allergies Allergy Verified 04/05/21 19:50 Physical Exam Vitals: Vital Signs Temp Pulse Pulse Resp BP BP Pulse Ox 04/06/21 13:00 98.2 F 88 18 119/62 94 L 04/06/21 03:52 98.3 F 109 H 16 116/65 95 04/05/21 23:01 97.3 F L 102 H 16 132/73 96 04/05/21 22:00 110 H 25 H 141/97 97 04/05/21 20:25 115 H 22 128/90 97 04/05/21 19:20 97.7 F 116 H 22 130/90 96 Intake and Output 04/06/21 04/06/21 04/06/21 06:59 14:59 22:59 Intake Total 250 Output Total 800 1500 Balance -550 -1500 Intake: Oral 250 Output: Urine 800 1500 Other: Voiding Method Indwelling Catheter Indwelling Catheter General appearance: The patient is alert, oriented, appears in no acute distress. HET: Head is normocephalic and atraumatic. Conjunctiva pink. Sclera anicteric. Neck: Supple without lymphadenopathy. Trachea midline. Heart: S1 S2. Regular rate and rhythm. Lungs: Clear to auscultation. Abdomen: Soft, diffuse tenderness, greatest in the epigastric region, nondistended with bowel sounds. No guarding or rigidity. Skin: No rashes. No jaundice. Extremities: Normal skin color and turgor. No pedal edema. Neurological: No focal deficits. Alert and oriented x3. Results CBC & Chem 7: 04/06/21 06:13 04/06/21 06:13 Labs: Abnormal Lab Results - Last 24 Hours (Table) 04/05/21 04/05/21 04/05/21 Range/Units 19:56 19:56 19:56 RBC 3.27 L (4.30-5.90) m/uL Hgb 12.5 L (13.0-17.5) gm/dL Hct (39.0-53.0) % MCV 119.4 H (80.0-100.0) fL MCH 38.3 H (25.0-35.0) pg RDW 15.6 H (11.5-15.5) % Macrocytosis Marked A PT 15.6 H (9.0-12.0) sec INR 1.5 H (<1.2) Carbon Dioxide 34 H (22-30) mmol/L BUN 8 L (9-20) mg/dL Calcium 8.3 L (8.4-10.2) mg/dL Total Bilirubin 4.8 H (0.2-1.3) mg/dL AST 80 H (17-59) U/L Alkaline Phosphatase 215 H (38-126) U/L Total Protein (6.3-8.2) g/dL Albumin 2.8 L (3.5-5.0) g/dL Lipase 17 L (23-300) U/L Urine Blood (Negative) Ur Leukocyte Esterase (Negative) Urine RBC (0-5) /hpf Urine WBC (0-5) /hpf 04/05/21 04/06/21 04/06/21 Range/Units 20:49 06:13 06:13 RBC 3.07 L (4.30-5.90) m/uL Hgb 11.7 L (13.0-17.5) gm/dL Hct 36.7 L (39.0-53.0) % MCV 119.4 H (80.0-100.0) fL MCH 38.1 H (25.0-35.0) pg RDW (11.5-15.5) % Macrocytosis Marked A PT (9.0-12.0) sec INR (<1.2) Carbon Dioxide 32 H (22-30) mmol/L BUN 8 L (9-20) mg/dL Calcium 8.0 L (8.4-10.2) mg/dL Total Bilirubin 4.8 H (0.2-1.3) mg/dL AST (17-59) U/L Alkaline Phosphatase 177 H (38-126) U/L Total Protein 6.2 L (6.3-8.2) g/dL Albumin 2.3 L (3.5-5.0) g/dL Lipase (23-300) U/L Urine Blood Small H (Negative) Ur Leukocyte Esterase Trace H (Negative) Urine RBC 7 H (0-5) /hpf Urine WBC 6 H (0-5) /hpf Assessment and Plan (1) Cirrhosis of liver Narrative/Plan: This is 66-year-old man who presented to the emergency room with generalized anasarca but more specifically scrotal swelling that has increased over the last 3 days. He was noted to have elevation in his LFTs with a total bilirubin of 4.8 AST 52 ALT 21 alkaline phosphatase 177 which is consistent with alcoholic cirrhosis of liver. The patient denies any previous known history of cirrhosis of liver or liver disease. He does have a significant history of alcohol abuse for which he states he quit trachea approximately 10 days ago. However he states that he was drinking a sixpack, pint or a fifth a day for several years, which he states was worse over the last 10 years due to depression from his weight and feels gastric sleeve. The patient likely has underlying cirrhosis of liver related to alcohol as well as there may be some component to fatty liver as well due to morbid obesity. Will order consultation to interventional rad iology for further evaluation of ascites for possible paracentesis. Current Visit: Yes Status: Acute Code(s): K74.60 - UNSPECIFIED CIRRHOSIS OF LIVER SNOMED Code(s): 42099316 (2) Alcohol abuse Current Visit: Yes Status: Acute Code(s): F10.10 - ALCOHOL ABUSE, UNCOMPLICATED SNOMED Code(s): 67147686 (3) Anasarca Current Visit: Yes Status: Acute Code(s): R60.1 - GENERALIZED EDEMA SNOMED Code(s): 441339073 (4) Scrotal swelling Current Visit: Yes Status: Acute Code(s): N50.89 - OTHER SPECIFIED DISORDERS OF THE MALE GENITAL ORGANS SNOMED Code(s): 223390430 Plan: 1. Continue symptomatic and supportive care 2. Alcohol abstinence 3. Continue with Lasix 40 mg every 8 hours, recommend transition to 40 mg twice a day at discharge 4. Will increase Aldactone to 100 mg daily 5. Interventional radiology consulted for paracentesis with fluid studies 6. Elevate scrotum 7. Repeat CBC, CMP in the morning 8. Patient will need close outpatient follow-up with gastroenterology Thank you for this consultation, we will continue to follow. Dr. Benny Davies I agree with the dictator's note, documented as a scribe by Birgit Anderson.
--- NOTE | 2021-04-06 17:00 | ECHOF ---
Referral Reason:LV function MEASUREMENTS -------- HEIGHT: 180.3 cm WEIGHT: 176.9 kg BP: RVIDd: 3.1 cm (< 3.3) IVSd: 1.4 cm (0.6 - 1.1) LVIDd: 4.9 cm (3.9 - 5.3) LVPWd: 1.4 cm (0.6 - 1.1) IVSs: 2.5 cm LVIDs: 2.5 cm LVPWs: 2.4 cm Ao Diam: 4.0 cm (2.0 - 3.7) AV Cusp: 2.4 cm (1.5 - 2.6) LA Diam: 3.2 cm (2.7 - 3.8) MV EXCURSION: 20.824 mm (> 18.000) MV EF SLOPE: 126 mm/s (70 - 150) EPSS: 0.9 cm MV E Leon: 0.70 m/s MV DecT: 211 ms MV A Leon: 0.88 m/s MV E/A Ratio: 0.80 RAP: 5.00 mmHg RVSP: 9.13 mmHg FINDINGS -------- This was a technically difficult study with suboptimal apical views. The left ventricular size is normal. There is moderate concentric left ventricular hypertrophy. O verall left ventricular systolic function is normal with, an EF between 55 - 60 %. The right ventricle is normal in size. The left atrial size is normal. The right atrial size is normal. The aortic valve is trileaflet and appears structurally normal. The mitral valve is normal. There is trace mitral regurgitation. The tricuspid valve appears structurally normal. Trace tricuspid regurgitation present. Right adán tricular systolic pressure is normal at < 35 mmHg. There is no pulmonic regurgitation present. The aortic root size is normal. IVC Not well visulized. There is a trivial pericardial effusion present. CONCLUSIONS -------- 1. This was a technically difficult study with suboptimal apical views. 2. The left ventricular size is normal. 3. There is moderate concentric left ventricular hypertrophy. 4. Overall left ventricular systolic function is normal with, an EF between 55 - 60 %. 5. There is trace mitral regurgitation. 6. Trace tricuspid regurgitation present. 7. There is a trivial pericardial effusion present. CEN[employer]AL COMMUNICATIONS SPECIALIST: Shweta Cruz RD
[2021-04-06] MEDS: oxyCODONE-APAP 7.5-325MG 1 EACH TAB PO PRN (19:10)
[2021-04-06] MEDS: CYCLOBENZAPRINE 10 MG TAB PO PRN (21:07)
[2021-04-06] MEDS: GABAPENTIN 300 MG CAP PO PRN (21:07)
--- NOTE | 2021-04-06 21:14 | P.HPIM ---
History of Present Illness H&P Date: 04/06/21 Chief Complaint: Increased abdominal lower extremity swelling This is a 66-year-old patient who follows with Dr. Reyes. Chronic stable medical conditions include hypertension, diverticulosis, arthritis, sleeve gastrectomy done in August 2013, then had a gastric bypass done by [facility]. Subsequently patient had some complications what he describes as a leak and was sent Dr. Hope Salmeron [facility]. It was felt to be very risky. And no further intervention was done. Patient has a history of significant alcohol intake. Patient has been for about one year increasing swelling the started in the lower extremity that extended from his abdomen. Somewhat decreased appetite. No fever no chills. Normally has a bowel movement daily. Since 2014 is put back on a 100 pounds. Patient's last drink was about a week ago. Review of systems: GEN.: Tired, slightly decreased appetite and weight gain EYES: None HEENT: None NECK: None RESPIRATORY: Mild shortness of breath CARDIOVASCULAR: None GASTROINTESTINAL: [As above GENITOURINARY: [Martel catheter MUSCULOSKELETAL: Pain in different joints LYMPHATICS: None HEMATOLOGICAL: None PSYCHIATRY: None NEUROLOGICAL: None Past medical history to include: Hypertension, diabetic colitis, gout, polyps, arthritis, lung abscess in 2014, gastrics sleeve leak, venous insufficiency left lower extremity, gallstones sleeve gastrectomy August 2013, gastric bleed in 2014, 2016 gastric bypass Social history: Lives with his mother and nephew. Drinks 3-4 glasses of wine daily and a pint of [place] about 64 nights a week. Cigars a few times a week. Family history: Reviewed, noncontributory to presentation Physical examination: VITAL SIGNS: 97.7, 116, 22, 1:30/90, 96% room air upon presentation GENERAL: BMI 56, reclining in bed, awake, not in distress. EYES: Pupils equal. Conjunctiva yellow l. HEENT: External appearance of nose and ears normal, oral cavity grossly normal. NECK: JVD unable to assess; masses not palpable. HEART: First and second heart sounds are normal; significant edema. LUNGS: Respiratory rate increased; distant breath sounds. ABDOMEN: Soft, slightly distended nontender, liver spleen not palpable, no masses palpable. Martel catheter PSYCH: Alert and oriented x3; mood and affect normal. DERMATOLOGICAL: Area of redness and moistness in the skin folds of the groin MUSCULOSKELETAL:No Clubbing/cyanosis;muscles-grossly intact NEUROLOGICAL: Cranial nerves grossly intact; no facial asymmetry, power and sensation grossly intact. LYMPHATICS: No lymph nodes palpable in the axilla and neck INVESTIGATIONS, reviewed in the clinical context: April 06: White count 7.4 hemoglobin 11.7 platelets 175 sodium 139 creatinine 0.99 pro time 15.6 total bilirubin 4.8 AST 52 ALT 21 albumin 2.3 lipase 17. Pro-BMP: 251 Coronavirus [PCR]: Not detected Abdominal ultrasound: Minimal ascites 2-D echocardiogram: Technically difficult study. Moderate concentric LVH. EF 55-60% Chest x-ray film personally reviewed by me-[underpenetrated] questionable venous prominence Scrotal ultrasound: Edema severe Ultrasound gallbladder: Limited exam exam. EKG tracing personally reviewed by me-sinus tachycardia, 121 Assessment and plan: -Patient presents with increasing abdominal distention, lower extremity swell ing. Patient has a history of alcohol use disorder. Given the elevated pro time, hypoalbuminemia, ascites, cirrhosis is likely. Due to large body habitus ultrasound not able to define liver. Consultation to GI. -Doubt congestive heart failure -Failed gastric bypass and sleeve gastrectomy with her currently. Patient has followed up at [facility]. High risk of surgery hence no further intervention -Morbid obesity BMI 56 Weight loss measures -Primary osteoarthritis multiple joints Percocet when necessary -Chronic nicotine dependence, cigar smoker Nicotine patch -Alcohol use disorder Abstain -COPD in the current smoker Pro-air when necessary We'll start the patient on Aldactone 100 mg. Home medications resumed. IV Lasix. Consultation to cardiology and GI. Add thiamine. Follow electrolytes. Options are somewhat limited. Past Medical History Past Medical History: Hypertension Additional Past Medical History / Comment(s): Glasses, loose and chipped teeth, Diverticulitis, Gout, Polyps, Back pain, Arthritis, lung abcess 03/06/15 Pt has been seeing physician in [place] for leak in sleeve, venous insufficiency in Left leg, RIght hip has spur, gallstones, History of Any Multi-Drug Resistant Organisms: None Reported Past Surgical History: Bariatric Surgery, Orthopedic Surgery, Tonsillectomy Additional Past Surgical History / Comment(s): Right and Left ACL, polyps removed, sleeve gastrectomy August 2013, Gastric leak September 2014, March 2015 Gastric Bypass performed by ([facility]) Past Anesthesia/Blood Transfusion Reactions: No Reported Reaction Past Psychological History: No Psychological Hx Reported Additional Psychological History / Comment(s): Previous depression. Smoking Status: Current some day smoker Past Alcohol Use History: Daily Additional Past Alcohol Use History / Comment(s): "3-4 glasses of wine daily and one pint of [place] about 4 nights/week. Mixes it with [place] Lemonade or Fruit Punch as well." Cigars a few times a week. Past Drug Use History: None Reported Medications and Allergies Home Medications Medication Instructions Recorded Confirmed Type oxyCODONE-APAP 7.5-325MG [Percocet 1 tab PO TID PRN 01/14/16 04/05/21 History 7.5-325 mg] Metoprolol Tartrate [Lopressor] 50 mg PO BID 01/25/19 04/05/21 History Gabapentin [Neurontin] 300 mg PO TID PRN 01/28/19 04/05/21 History Albuterol Sulfate [Proair Hfa] 2 puff INHALATION RT-Q6H PRN 04/05/21 04/05/21 History Cyclobenzaprine [Flexeril] 10 mg PO HS PRN 04/05/21 04/05/21 History Meloxicam [Mobic] 15 mg PO DAILY 04/05/21 04/05/21 History Montelukast [Singulair] 10 mg PO DAILY 04/05/21 04/05/21 History Nicotine 21Mg/24Hr Patch [Habitrol] 1 patch TRANSDERM DAILY 04/05/21 04/05/21 History Furosemide [Lasix] 40 mg PO DAILY PRN 04/06/21 04/06/21 History Allergies Allergy/AdvReac Type Severity Reaction Status Date / Time No Known Allergies Allergy Verified 04/05/21 19:50 Physical Exam Vitals: Vital Signs Temp Pulse Pulse Resp BP BP Pulse Ox 04/06/21 03:52 98.3 F 109 H 16 116/65 95 04/05/21 23:01 97.3 F L 102 H 16 132/73 96 04/05/21 22:00 110 H 25 H 141/97 97 04/05/21 20:25 115 H 22 128/90 97 04/05/21 19:20 97.7 F 116 H 22 130/90 96 Intake and Output 04/05/21 04/06/21 04/06/21 22:59 06:59 14:59 Intake Total 250 Output Total 800 Balance -550 Intake: Oral 250 Output: Urine 800 Other: Voiding Method Indwelling Catheter Indwelling Catheter Weight 176.901 kg Results CBC & Chem 7: 04/06/21 06:13 04/06/21 06:13 Labs: Abnormal Lab Results - Last 24 Hours (Table) 04/05/21 04/05/21 04/05/21 Range/Units 19:56 19:56 19:56 RBC 3.27 L (4.30-5.90) m/uL Hgb 12.5 L (13.0-17.5) gm/dL Hct (39.0-53.0) % MCV 119.4 H (80.0-100.0) fL MCH 38.3 H (25.0-35.0) pg RDW 15.6 H (11.5-15.5) % Macrocytosis Marked A PT 15.6 H (9.0-12.0) sec INR 1.5 H (<1.2) Carbon Dioxide 34 H (22-30) mmol/L BUN 8 L (9-20) mg/dL Calcium 8.3 L (8.4-10.2) mg/dL Total Bilirubin 4.8 H (0.2-1.3) mg/dL AST 80 H (17-59) U/L Alkaline Phosphatase 215 H (38-126) U/L Total Protein (6.3-8.2) g/dL Albumin 2.8 L (3.5-5.0) g/dL Lipase 17 L (23-300) U/L Urine Blood (Negative) Ur Leukocyte Esterase (Negative) Urine RBC (0-5) /hpf Urine WBC (0-5) /hpf 04/05/21 04/06/21 04/06/21 Range/Units 20:49 06:13 06:13 RBC 3.07 L (4.30-5.90) m/uL Hgb 11.7 L (13.0-17.5) gm/dL Hct 36.7 L (39.0-53.0) % MCV 119.4 H (80.0-100.0) fL MCH 38.1 H (25.0-35.0) pg RDW (11.5-15.5) % Macrocytosis Marked A PT (9.0-12.0) sec INR (<1.2) Carbon Dioxide 32 H (22-30) mmol/L BUN 8 L (9-20) mg/dL Calcium 8.0 L (8.4-10.2) mg/dL Total Bilirubin 4.8 H (0.2-1.3) mg/dL AST (17-59) U/L Alkaline Phosphatase 177 H (38-126) U/L Total Protein 6.2 L (6.3-8.2) g/dL Albumin 2.3 L (3.5-5.0) g/dL Lipase (23-300) U/L Urine Blood Small H (Negative) Ur Leukocyte Esterase Trace H (Negative) Urine RBC 7 H (0-5) /hpf Urine WBC 6 H (0-5) /hpf Thrombosis Risk Factor Assmnt - Choose All That Apply Any of the Below Risk Factors Present?: Yes Each Factor Represents 1 point: Obesity (BMI >25) Each Risk Factor Represents 2 Points: Age 61-74 years Thrombosis Risk Factor Assessment Total Risk Factor Score: 3 Thrombosis Risk Factor Assessment Level: Moderate Risk
[2021-04-06] MEDS ORDERED: FUROSEMIDE 10 MG/ML 4 ML VIAL IV SCH (21:15)
[2021-04-07] MEDS: THIAMINE 100 MG TAB PO SCH ×2 (00:11→09:53)
[2021-04-07] MEDS: HEPARIN SODIUM,PORCINE/PF 5,000 UNIT/0.5 ML SYRINGE SQ SCH ×3 (00:12→16:06)
[2021-04-07] MEDS: oxyCODONE-APAP 7.5-325MG 1 EACH TAB PO PRN ×3 (04:04→20:19)
[2021-04-07 06:50] LABS: African American GFR (CKD) >90 (>60 ml/min/1.73 sqM); Anion Gap 3 mmol/L; Blood Urea Nitrogen 9 mg/dL (9-20); Calcium 8.2 mg/dL (8.4-10.2); Carbon Dioxide 36 mmol/L (22-30); Chloride 101 mmol/L (98-107); Glucose 81 mg/dL (74-99); Non-African American GFR(CKD) 88 (>60 ml/min/1.73 sqM); Potassium 3.5 mmol/L (3.5-5.1); Sodium 140 mmol/L (137-145)
[2021-04-07] MEDS ORDERED: SPIRONOLACTONE 25 MG TAB PO SCH (09:00)
[2021-04-07] MEDS: NICOTINE 21MG/24HR PATCH TRANSDERM SCH (09:50)
[2021-04-07] MEDS: FUROSEMIDE 10 MG/ML 4 ML VIAL IV SCH ×2 (09:50→16:06)
[2021-04-07] MEDS: MELOXICAM 7.5 MG TAB PO SCH (09:50)
[2021-04-07] MEDS: MONTELUKAST 10 MG TAB PO SCH (09:52)
[2021-04-07] MEDS: METOPROLOL TARTRATE 50 MG TAB PO SCH ×2 (09:52→20:21)
[2021-04-07] MEDS: GABAPENTIN 300 MG CAP PO PRN (09:58)
--- NOTE | 2021-04-07 10:38 | P.PN ---
Subjective This is a pleasant 66-year-old male past medical history significant for chronic nicotine dependence, alcohol abuse, liver cirrhosis, hypertension, chronic anasarca, cholelithiasis, obstructive sleep apnea, obesity, gastric sleeve surgery. He does not follow with a air pumper. We have been asked to see in consultation for sinus tachycardia and pulmonary edema. Patient presents to the emergency department with worsening scrotal and lower extremity edema for 3 days. He states he was in the hospital in [place] in January was diagnosed with cellulitis and venous insufficiency was prescribed PRN Lasix 20mg daily for edema. He states he was doing well. Over the past week, his edema worsened and was told to take 40mg daily, however, over the past 3 days he felt the Lasix was not helping and decided to present to the emergency department. Patient does not have a history of UT, Stroke, Coronary artery disease, or diabetes. He states he drinks 1 pint a day and smokes 1 Pack of cigarrettes every 3 days. 04/07/2021 Patient seen at bedside, distress. He continues to have significant scrotal edema. Patient with 4.3L urine output over the past 24 hours and decrease in weight. Telemetry reviewed patient had improvement in heart rates, sinus mechanism, heart rates 70s-80s. He is currently maintained on IV Lasix 40 mg twice a day, metoprolol tartrate 50 mg twice a day, spironolactone 100 mg daily. Abdominal ultrasound revealed minimal ascites present Echocardiogram revealed EF 5560 percent, no significant wall motion abnormalities, trivial pericardial effusion. Labs, sodium 140, potassium 3.5, BUN 9, serum creatinine 0.9 PHYSICAL EXAMINATION Blood pressure 102/64, heart rate 86, afebrile, oxygen saturation is 94% on room air CONSTITUTIONAL: No apparent distress. HEENT: Neck Supple. No JVD CHEST EXAMINATION: Lungs are clear to auscultation. No chest wall tenderness is noted on palpation or with deep breathing. HEART EXAMINATION: Regular rate and rhythm. S1, S2 heard. No murmurs, gallops or rub. ABDOMEN: Soft, nontender. Positive bowel sounds. : Scrotal swelling noted EXTREMITIES: Redness to bilateral shins/calves, 2+ edema lower extremities bilaterally. NEUROLOGIC EXAMINATION: Patient is awake, alert and oriented x3. ASSESSMENT Scrotal edema and bilateral lower extremity edema likely anasarca due to liver cirrhosis Sinus tachycardia Liver cirrhosis Chronic anasarca Chronic nicotine dependence Alcohol abuse Obstructive sleep apnea History of hypertension Hypoalbuminemia could be contributing to edema PLAN Increase IV Lasix to 40mg Q8hr Continue metoprolol tartrate 50 mg twice a day Monitor I/Os, daily weights, renal function and electrolytes Further recommendations based on clinical course Nurse Practitioner note has been reviewed, I agree with a documented findings and plan of care. Patient was seen and examined. Objective - Vital Signs Vital signs: Vital Signs Temp 98.7 F 04/07/21 08:19 Pulse 86 04/07/21 08:19 Resp 16 04/07/21 08:19 BP 102/64 04/07/21 08:19 Pulse Ox 93 L 04/07/21 08:19 Intake & Output 04/06/21 04/07/21 04/07/21 18:59 06:59 18:59 Intake Total 375 Output Total 1500 2800 Balance -1500 -2425 Weight 175.5 kg Intake: Oral 375 Output: Urine 1500 2800 Other: Voiding Method Indwelling Catheter Indwelling Catheter Indwelling Catheter - Labs CBC & Chem 7: 04/06/21 06:13 04/07/21 05:39 Labs: Abnormal Lab Results - Last 24 Hours (Table) 04/07/21 Range/Units 05:39 Carbon Dioxide 36 H (22-30) mmol/L Calcium 8.2 L (8.4-10.2) mg/dL
[2021-04-07] MEDS: NYSTATIN 100,000 UNIT/GM POWD 15 GM TOPICAL SCH ×2 (12:24→20:21)
--- NOTE | 2021-04-07 15:32 | P.PN ---
Subjective Progress Note Date: 04/07/21 Principal diagnosis: Cirrhosis of the liver, ascites A 66-year-old male with history of alcoholism who presented with edema of bilateral lower extremities, testicles, with complaints of abdominal distention and ascites. Elevation in LFTs have been consistent with alcoholic cirrhosis of the liver. He has no new complaints today. Lower extremity and scrotal edema improved some. Patient had paracentesis ordered however interventional radiology stated that there was not enough fluid for paracentesis. Objective - Vital Signs Vital signs: Vital Signs Temp 98.7 F 04/07/21 08:19 Pulse 86 04/07/21 08:19 Resp 16 04/07/21 08:19 BP 102/64 04/07/21 08:19 Pulse Ox 93 L 04/07/21 08:19 Intake & Output 04/06/21 04/07/21 04/07/21 18:59 06:59 18:59 Intake Total 375 Output Total 1500 2800 Balance -1500 -2425 Weight 175.5 kg Intake: Oral 375 Output: Urine 1500 2800 Other: Voiding Method Indwelling Catheter Indwelling Catheter Indwelling Catheter - Exam General appearance: The patient is alert, oriented, appears in no acute distress. HET: Head is normocephalic and atraumatic. Conjunctiva pink. Sclera anicteric. Neck: Supple without lymphadenopathy. Abdomen: Soft, morbidly obese, nontender, nondistended with bowel sounds. No guarding or rigidity. Extremities: Normal skin color and turgor. Bilateral +2 lower extremity edema. Skin: No rashes, no jaundice Neurological: No focal deficits. Alert and oriented x3. - Labs CBC & Chem 7: 04/06/21 06:13 04/07/21 05:39 Labs: Abnormal Lab Results - Last 24 Hours (Table) 04/07/21 Range/Units 05:39 Carbon Dioxide 36 H (22-30) mmol/L Calcium 8.2 L (8.4-10.2) mg/dL Assessment and Plan (1) Cirrhosis of liver Narrative/Plan: This is 66-year-old man who presented to the emergency room with generalized anasarca but more specifically scrotal swelling that has increased over the last 3 days. He was noted to have elevation in his LFTs with a total bilirubin of 4.8 AST 52 ALT 21 alkaline phosphatase 177 which is consistent with alcoholic cirrhosis of liver. The patient denies any previous known history of cirrhosis of liver or liver disease. He does have a significant history of alcohol abuse for which he states he quit trachea approximately 10 days ago. However he states that he was drinking a sixpack, pint or a fifth a day for several years, which he states was worse over the last 10 years due to depression from his weight and feels gastric sleeve. The patient likely has underlying cirrhosis of liver related to alcohol as well as there may be some component to fatty liver as well due to morbid obesity. Will order consultation to interventional radiology for further evaluation of ascites for possible paracentesis. Current Visit: Yes Status: Acute Code(s): K74.60 - UNSPECIFIED CIRRHOSIS OF LIVER SNOMED Code(s): 71612869 (2) Alcohol abuse Current Visit: Yes Status: Acute Code(s): F10.10 - ALCOHOL ABUSE, UNCOMPLICATED SNOMED Code(s): 21689826 (3) Anasarca Current Visit: Yes Status: Acute Code(s): R60.1 - GENERALIZED EDEMA SNOMED Code(s): 499242544 (4) Scrotal swelling Current Visit: Yes Status: Acute Code(s): N50.89 - OTHER SPECIFIED DISORDERS OF THE MALE GENITAL ORGANS SNOMED Code(s): 320239568 Plan: 1. Continue symptomatic and supportive care 2. Alcohol abstinence 3. Continue with Lasix 40 mg every 8 hours, recommend transition to 40 mg twice a day at discharge 4. Will increase Aldactone to 100 mg daily 5. Elevate scrotum 8. Patient will need close outpatient follow-up with gastroenterology Thank you for this consultation, we will continue to follow. Patient is cleared for discharge from gastroenterology. Dr. Benny Davies I agree with the dictator's note, documented as a scribe by Birgit Anderson.
--- NOTE | 2021-04-07 17:55 | P.PN ---
Progress Note - Text Progress Note Date: 04/07/21 Chief Complaint: Increased abdominal lower extremity swelling This is a 66-year-old patient who follows with Dr. Reyes. Chronic stable medical conditions include hypertension, diverticulosis, arthritis, sleeve gastrectomy done in August 2013, then had a gastric [place] [facility] Subsequently patient had some complications what he describes as a leak and was sent Dr. Hope Bronson [facility]. It was felt to be very risky. And no further intervention was done. Patient has a history of significant alcohol intake. Patient has been for about one year increasing swelling the started in the lower extremity that extended from his abdomen. Somewhat decreased appetite. No fever no chills. Normally has a bowel movement daily. Since 2014 is put back on a 100 pounds. Patient's last drink was about a week ago. Admitted with fluid overload from hepatic cirrhosis. IV Lasix. Low-sodium diet. Fluid restriction. March 07: Eating fair. Discussed with the patient. IV Lasix. Over 4 L and fluid overload. Review of systems: Was done for constitutional, cardiovascular, GI, pulmonary. relevant finding as above Active Medications Albuterol Sulfate (Albuterol Nebulized 2.5 Mg/3 Ml) 2.5 mg INHALATION RT-Q6H PRN PRN Reason: Shortness Of Breath Cyclobenzaprine HCl (Cyclobenzaprine 10 Mg Tab) 10 mg PO HS PRN PRN Reason: Pain Last Admin: 04/06/21 21:07 Dose: 10 mg Documented by: Furosemide (Furosemide 10 Mg/Ml 4 Ml Vial) 40 mg IV Q8HR [facility] Last Admin: 04/07/21 16:06 Dose: 40 mg Documented by: Gabapentin (Gabapentin 300 Mg Cap) 300 mg PO TID PRN PRN Reason: Pain Last Admin: 04/07/21 09:58 Dose: 300 mg Documented by: Heparin Sodium (Porcine) (Heparin Sodium,Porcine/Pf 5,000 Unit/0.5 Ml Syringe) 5,000 unit SQ Q8HR [facility] Last Admin: 04/07/21 16:06 Dose: 5,000 unit Documented by: Meloxicam (Meloxicam 7.5 Mg Tab) 15 mg PO DAILY [facility] Last Admin: 04/07/21 09:50 Dose: 15 mg Documented by: Metoprolol Tartrate (Metoprolol Tartrate 50 Mg Tab) 50 mg PO BID [facility] Last Admin: 04/07/21 09:52 Dose: 50 mg Documented by: Montelukast Sodium (Montelukast 10 Mg Tab) 10 mg PO DAILY [facility] Last Admin: 04/07/21 09:52 Dose: 10 mg Documented by: Naloxone HCl (Naloxone 0.4 Mg/Ml 1 Ml Vial) 0.2 mg IV Q2M PRN PRN Reason: Opioid Reversal Nicotine (Nicotine 21mg/24hr Patch) 1 patch TRANSDERM DAILY [facility] Last Admin: 04/07/21 09:50 Dose: 1 patch Documented by: Nystatin (Nystatin 100,000 Unit/Gm Powd 15 Gm) 1 applic TOPICAL BID [facility]; Protocol Last Admin: 04/07/21 12:24 Dose: 1 applic Documented by: Oxycodone/Acetaminophen (Oxycodone-Apap 7.5-325mg 1 Each Tab) 1 each PO TID PRN PRN Reason: Pain Last Admin: 04/07/21 12:28 Dose: 1 each Documented by: Spironolactone (Spironolactone 25 Mg Tab) 100 mg PO DAILY [facility] Last Admin: 04/07/21 09:53 Dose: 100 mg Documented by: Thiamine HCl (Thiamine 100 Mg Tab) 100 mg PO DAILY [facility] Last Admin: 04/07/21 09:53 Dose: 100 mg Documented by: Past medical history to include: Hypertension, diabetic colitis, gout, polyps, arthritis, lung abscess in 2014, gastrics sleeve leak, venous insufficiency left lower extremity, gallstones sleeve gastrectomy August 2013, gastric bleed in 2014, 2016 gastric bypass Social history: Lives with his mother and nephew. Drinks 3-4 glasses of wine daily and a pint of [place] about 64 nights a week. Cigars a few times a week. Family history: Reviewed, noncontributory to presentation Physical examination: VITAL SIGNS: 97.1, 80, 18, 102/67, 93% room air GENERAL: reclining in bed, awake, not in distress. EYES: Pupils equal. Conjunctiva yellow . HEENT: External appearance of nose and ears normal, oral cavity grossly normal. NECK: JVD unable to assess; masses not palpable. HEART: First and second heart sounds are normal; significant edema. LUNGS: Respiratory rate increased; distant breath sounds. ABDOMEN: Soft, slightly distended nontender, liver spleen not palpable, no masses palpable. Martel catheter PSYCH: Alert and oriented x3; mood and affect normal. DERMATOLOGICAL: Area of redness and moistness in the skin folds of the groin MUSCULOSKELETAL:No Clubbing/cyanosis;muscles-grossly intact NEUROLOGICAL: Cranial nerves grossly intact; no facial asymmetry, power and sensation grossly intact. LYMPHATICS: No lymph nodes palpable in the axilla and neck INVESTIGATIONS, reviewed in the clinical context: April 07: Potassium 3.5 creatinine 0.9 to April 06: White count 7.4 hemoglobin 11.7 platelets 175 sodium 139 creatinine 0.99 pro time 15.6 total bilirubin 4.8 AST 52 ALT 21 albumin 2.3 lipase 17. Pro-BMP: 251 Coronavirus [PCR]: Not detected Abdominal ultrasound: Minimal ascites 2-D echocardiogram: Technically difficult study. Moderate concentric LVH. EF 55-60% Chest x-ray film personally reviewed by me-[underpenetrated] questionable venous prominence Scrotal ultrasound: Edema severe Ultrasound gallbladder: Limited exam exam. EKG tracing personally reviewed by me-sinus tachycardia, 121 Assessment and plan: -Hepatic cirrhosis, leading to severe fluid overload: Slow to respond Over 4 L and negative fluid balance. Continue IV Lasix. Aldactone. Fluid restriction. -Hepatic cirrhosis Aldactone. Diuretics. Follow with GI. -Doubt congestive heart failure -Failed gastric bypass and sleeve gastrectomy with her currently. Patient has followed up at [facility]. High risk of surgery hence no further intervention -Morbid obesity BMI 56 Weight loss measures -Primary osteoarthritis multiple joints Percocet when necessary -Chronic nicotine dependence, cigar smoker Nicotine patch -Alcohol use disorder Abstain -COPD in the current smoker Pro-air when necessary Continue Aldactone 100 mg. IV Lasix. Strict I's and O's. Discussed with patient. Follow labs..
[2021-04-07] MEDS: SPIRONOLACTONE 25 MG TAB PO SCH (20:24)
[2021-04-08] MEDS: HEPARIN SODIUM,PORCINE/PF 5,000 UNIT/0.5 ML SYRINGE SQ SCH ×3 (00:28→16:50)
[2021-04-08] MEDS: FUROSEMIDE 10 MG/ML 4 ML VIAL IV SCH ×3 (00:28→16:50)
[2021-04-08] MEDS: GABAPENTIN 300 MG CAP PO PRN ×2 (00:34→22:31)
[2021-04-08] MEDS: CYCLOBENZAPRINE 10 MG TAB PO PRN ×2 (00:42→22:30)
[2021-04-08] MEDS: oxyCODONE-APAP 7.5-325MG 1 EACH TAB PO PRN ×3 (05:54→22:05)
[2021-04-08 07:03] LABS: African American GFR (CKD) 80 (>60 ml/min/1.73 sqM); Blood Urea Nitrogen 12 mg/dL (9-20); Calcium 8.7 mg/dL (8.4-10.2); Chloride 99 mmol/L (98-107); Glucose 86 mg/dL (74-99); Magnesium 1.5 mg/dL (1.6-2.3); Non-African American GFR(CKD) 69 (>60 ml/min/1.73 sqM); Potassium 3.6 mmol/L (3.5-5.1); Sodium 139 mmol/L (137-145)
[2021-04-08 07:10] LABS: Anion Gap -2 mmol/L
[2021-04-08 07:12] LABS: Carbon Dioxide 42 mmol/L (22-30)
[2021-04-08] MEDS: MELOXICAM 7.5 MG TAB PO SCH (09:43)
[2021-04-08] MEDS: SPIRONOLACTONE 25 MG TAB PO SCH ×2 (09:44→22:05)
[2021-04-08] MEDS: METOPROLOL TARTRATE 50 MG TAB PO SCH ×2 (09:44→22:06)
[2021-04-08] MEDS: THIAMINE 100 MG TAB PO SCH (09:44)
[2021-04-08] MEDS: MONTELUKAST 10 MG TAB PO SCH (09:44)
[2021-04-08] MEDS: NICOTINE 21MG/24HR PATCH TRANSDERM SCH (09:45)
[2021-04-08] MEDS: NYSTATIN 100,000 UNIT/GM POWD 15 GM TOPICAL SCH ×2 (09:46→22:06)
[2021-04-08] MEDS ORDERED: Magnesium Replacement Protocol 1 EACH MISC MISCELLANE PRN (10:03)
--- NOTE | 2021-04-08 10:54 | P.PN ---
Subjective This is a pleasant 66-year-old male past medical history significant for chronic nicotine dependence, alcohol abuse, liver cirrhosis, hypertension, chronic anasarca, cholelithiasis, obstructive sleep apnea, obesity, gastric sleeve surgery. 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 We have been asked to see in consultation for sinus tachycardia and pulmonary edema. Patient presents to the emergency department with worsening scrotal and lower extremity edema for 3 days. He states he was in the hospital in [place] in January was diagnosed with cellulitis and venous insufficiency was prescribed PRN Lasix 20mg daily for edema. He states he was doing well. Over the past week, his edema worsened and was told to take 40mg daily, however, over the past 3 days he felt the Lasix was not helping and decided to present to the emergency department. Patient does not have a history of [place], Stroke, Coronary artery disease, or diabetes. He states he drinks 1 pint a day and smokes 1 Pack of cigarrettes every 3 days. 04/07/2021 Patient seen at bedside, in no acute distress. His bilateral lower extremity edema and scrotal swelling has improved, he feels his swelling improved. Patient with 5550mL urine output over the past 24 hours and decrease in weight since admission. Telemetry reviewed patient had improvement in heart rates, sinus mechanism, heart rates 70s-90s. He is currently maintained on IV Lasix 40 mg Q8hr, metoprolol tartrate 50 mg twice a day, spironolactone 100 mg daily. Echocardiogram revealed EF 5560 percent, no significant wall motion abnormalities, trivial pericardial effusion. Labs, sodium 139, potassium 3.6, BUN 12, serum creatinine 1.12, magnesium 1.5, carbon dioxide 42 PHYSICAL EXAMINATION Blood pressure 102/65, heart rate 96, afebrile, saturations greater than 92% on room air CONSTITUTIONAL: No apparent distress. HEENT: Neck Supple. No JVD CHEST EXAMINATION: Lungs are clear to auscultation. No chest wall tenderness is noted on palpation or with deep breathing. HEART EXAMINATION: Regular rate and rhythm. S1, S2 heard. No murmurs, gallops or rub. ABDOMEN: Soft, nontender. Positive bowel sounds. : Scrotal swelling noted, improved EXTREMITIES: Redness to bilateral shins/calves, 2+ edema lower extremities bilaterally. NEUROLOGIC EXAMINATION: Patient is awake, alert and oriented x3. ASSESSMENT Scrotal edema and bilateral lower extremity edema likely anasarca due to liver c irrhosis Sinus tachycardia Liver cirrhosis Chronic anasarca Chronic nicotine dependence Alcohol abuse Obstructive sleep apnea History of hypertension Hypoalbuminemia could be contributing to edema Hypomagnesemia PLAN We will continue IV Lasix to 40mg Q8hr for additional 24 hours Continue metoprolol tartrate 50 mg twice a day Replace magnesium per protocol Monitor I/Os, daily weights, renal function and electrolytes Further recommendations based on clinical course Nurse Practitioner note has been reviewed, I agree with a documented findings and plan of care. Patient was seen and examined. Objective - Vital Signs Vital signs: Vital Signs Temp 98.3 F 04/08/21 03:50 Pulse 96 04/08/21 09:42 Resp 20 04/08/21 03:50 BP 102/65 04/08/21 09:42 Pulse Ox 94 L 04/08/21 03:50 Intake & Output 04/07/21 04/08/21 04/08/21 18:59 06:59 18:59 Intake Total 540 Output Total 2350 3200 Balance -2350 -3200 540 Weight 165.363 kg Intake: Oral 540 Output: Urine 2350 3200 Other: Voiding Method Indwelling Catheter Indwelling Catheter - Labs CBC & Chem 7: 04/06/21 06:13 04/08/21 06:15 Labs: Abnormal Lab Results - Last 24 Hours (Table) 04/08/21 Range/Units 06:15 Carbon Dioxide 42 H* (22-30) mmol/L Magnesium 1.5 L (1.6-2.3) mg/dL
[2021-04-08] MEDS: MAGNESIUM SULFATE-D5W PMX 1 GM in DEXTROSE/WATER 1 100ML.BAG IVPB SCH ×2 (10:56→12:12)
--- NOTE | 2021-04-08 12:47 | P.PN ---
Subjective Progress Note Date: 04/08/21 Principal diagnosis: Cirrhosis of the liver, ascites A 66-year-old male with history of alcoholism who presented with edema of bilateral lower extremities, testicles, with complaints of abdominal distention and ascites. Elevation in LFTs have been consistent with alcoholic cirrhosis of the liver. He has no new complaints today. Lower extremity and scrotal edema improved some. Objective - Vital Signs Vital signs: Vital Signs Temp 98.3 F 04/08/21 03:50 Pulse 91 04/08/21 03:50 Resp 20 04/08/21 03:50 BP 94/61 04/08/21 03:50 Pulse Ox 94 L 04/08/21 03:50 Intake & Output 04/07/21 04/08/21 04/08/21 18:59 06:59 18:59 Intake Total 540 Output Total 2350 3200 Balance -2350 -3200 540 Weight 165.363 kg Intake: Oral 540 Output: Urine 2350 3200 Other: Voiding Method Indwelling Catheter Indwelling Catheter - Exam General appearance: The patient is alert, oriented, appears in no acute distress. HET: Head is normocephalic and atraumatic. Conjunctiva pink. Sclera anicteric. Neck: Supple without lymphadenopathy. Abdomen: Soft, morbidly obese, nontender, nondistended with bowel sounds. No guarding or rigidity. Extremities: Normal skin color and turgor. Bilateral +2 lower extremity edema. Skin: No rashes, no jaundice Neurological: No focal deficits. Alert and oriented x3. - Labs CBC & Chem 7: 04/06/21 06:13 04/08/21 06:15 Labs: Abnormal Lab Results - Last 24 Hours (Table) 04/08/21 Range/Units 06:15 Carbon Dioxide 42 H* (22-30) mmol/L Magnesium 1.5 L (1.6-2.3) mg/dL Assessment and Plan (1) Cirrhosis of liver Narrative/Plan: This is 66-year-old man who presented to the emergency room with generalized anasarca but more specifically scrotal swelling that has increased over the last 3 days. He was noted to have elevation in his LFTs with a total bilirubin of 4.8 AST 52 ALT 21 alkaline phosphatase 177 which is consistent with alcoholic cirrhosis of liver. The patient denies any previous known history of cirrhosis of liver or liver disease. He does have a significant history of alcohol abuse for which he states he quit trachea approximately 10 days ago. However he states that he was drinking a sixpack, pint or a fifth a day for several years, which he states was worse over the last 10 years due to depression from his weight and feels gastric sleeve. The patient likely has underlying cirrhosis of liver related to alcohol as well as there may be some component to fatty liver as well due to morbid obesity. Will order consultation to interventional radiology for further evaluation of ascites for possible paracentesis. Current Visit: Yes Status: Acute Code(s): K74.60 - UNSPECIFIED CIRRHOSIS OF LIVER SNOMED Code(s): 48059307 (2) Alcohol abuse Current Visit: Yes Status: Acute Code(s): F10.10 - ALCOHOL ABUSE, UNCOMPLICATED SNOMED Code(s): 74261879 (3) Anasarca Current Visit: Yes Status: Acute Code(s): R60.1 - GENERALIZED EDEMA SNOMED Code(s): 765273594 (4) Scrotal swelling Current Visit: Yes Status: Acute Code(s): N50.89 - OTHER SPECIFIED DISORDERS OF THE MALE GENITAL ORGANS SNOMED Code(s): 920849674 Plan: 1. Continue symptomatic and supportive care 2. Alcohol abstinence 3. Continue with Lasix 40 mg every 8 hours, recommend transition to 40 mg twice a day at discharge 4. Will increase Aldactone to 100 mg daily 5. Elevate scrotum 8. Patient will need close outpatient follow-up with gastroenterology Thank you for this consultation, we will continue to follow. Patient is cleared for discharge from gastroenterology. Dr. Benny Davies I agree with the dictator's note, documented as a scribe by Birgit Anderson.
[2021-04-08] MEDS: MAGNESIUM OXIDE 400 MG TAB PO SCH ×2 (13:03→22:06)
[2021-04-08] MEDS: acetaZOLAMIDE 250 MG TAB PO SCH ×2 (13:03→22:05)
--- NOTE | 2021-04-08 20:55 | P.PN ---
Progress Note - Text Progress Note Date: 04/08/21 Chief Complaint: Increased abdominal lower extremity swelling This is a 66-year-old patient who follows with Dr. Reyes. Chronic stable medical conditions include hypertension, diverticulosis, arthritis, sleeve gastrectomy done in August 2013, then had a gastric bypass done by [facility]. Subsequently patient had some complications what he describes as a leak and was sent Dr. Hope [facility]. It was felt to be very risky. And no further intervention was done. Patient has a history of significant alcohol intake. Patient has been for about one year increasing swelling the started in the lower extremity that extended from his abdomen. Somewhat decreased appetite. No fever no chills. Normally has a bowel movement daily. Since 2014 is put back on a 100 pounds. Patient's last drink was about a week ago. Admitted with fluid overload from hepatic cirrhosis. IV Lasix. Low-sodium diet. Fluid restriction. April 07: Eating fair. Discussed with the patient. IV Lasix. Over 4 L and fluid overload. April 08: Oral intake fair. Good urine output. About 9L in negative fluid balance. Edema coming down. On IV Lasix and Aldactone. Did sit up in a chair. Review of systems: Was done for constitutional, cardiovascular, GI, pulmonary. relevant finding as above Active Medications Acetazolamide (Acetazolamide 250 Mg Tab) 250 mg PO BID [facility] Last Admin: 04/08/21 13:03 Dose: 250 mg Documented by: Albuterol Sulfate (Albuterol Nebulized 2.5 Mg/3 Ml) 2.5 mg INHALATION RT-Q6H PRN PRN Reason: Shortness Of Breath Cyclobenzaprine HCl (Cyclobenzaprine 10 Mg Tab) 10 mg PO HS PRN PRN Reason: Pain Last Admin: 04/08/21 00:42 Dose: 10 mg Documented by: Furosemide (Furosemide 10 Mg/Ml 4 Ml Vial) 40 mg IV Q8HR [facility] Last Admin: 04/08/21 16:50 Dose: 40 mg Documented by: Gabapentin (Gabapentin 300 Mg Cap) 300 mg PO TID PRN PRN Reason: Pain Last Admin: 04/08/21 00:34 Dose: 300 mg Documented by: Heparin Sodium (Porcine) (Heparin Sodium,Porcine/Pf 5,000 Unit/0.5 Ml Syringe) 5,000 unit SQ Q8HR [facility] Last Admin: 04/08/21 16:50 Dose: 5,000 unit Documented by: Magnesium Oxide (Magnesium Oxide 400 Mg Tab) 400 mg PO BID [facility] Last Admin: 04/08/21 13:03 Dose: 400 mg Documented by: Meloxicam (Meloxicam 7.5 Mg Tab) 15 mg PO DAILY [facility] Last Admin: 04/08/21 09:43 Dose: 15 mg Documented by: Metoprolol Tartrate (Metoprolol Tartrate 50 Mg Tab) 50 mg PO BID [facility] Last Admin: 04/08/21 09:44 Dose: 50 mg Documented by: Miscellaneous Information (Magnesium Replacement Protocol 1 Each Misc) 1 each MISCELLANE DAILY PRN; Protocol PRN Reason: Per Protocol Montelukast Sodium (Montelukast 10 Mg Tab) 10 mg PO DAILY [facility] Last Admin: 04/08/21 09:44 Dose: 10 mg Documented by: Naloxone HCl (Naloxone 0.4 Mg/Ml 1 Ml Vial) 0.2 mg IV Q2M PRN PRN Reason: Opioid Reversal Nicotine (Nicotine 21mg/24hr Patch) 1 patch TRANSDERM DAILY [facility] Last Admin: 04/08/21 09:45 Dose: 1 patch Documented by: Nystatin (Nystatin 100,000 Unit/Gm Powd 15 Gm) 1 applic TOPICAL BID [facility]; Protocol Last Admin: 04/08/21 09:46 Dose: 1 applic Documented by: Oxycodone/Acetaminophen (Oxycodone-Apap 7.5-325mg 1 Each Tab) 1 each PO TID PRN PRN Reason: Pain Last Admin: 04/08/21 13:02 Dose: 1 each Documented by: Spironolactone (Spironolactone 25 Mg Tab) 100 mg PO BID [facility] Last Admin: 04/08/21 09:44 Dose: 100 mg Documented by: Thiamine HCl (Thiamine 100 Mg Tab) 100 mg PO DAILY [facility] Last Admin: 04/08/21 09:44 Dose: 100 mg Documented by: Past medical history to include: Hypertension, diabetic colitis, gout, polyps, arthritis, lung abscess in 2014, gastrics sleeve leak, venous insufficiency left lower extremity, gallstones sleeve gastrectomy August 2013, gastric bleed in 2014, 2016 gastric bypass Social history: Lives with his mother and nephew. Drinks 3-4 glasses of wine daily and a pint of [place] about 64 nights a week. Cigars a few times a week. Family history: Reviewed, noncontributory to presentation Physical examination: VITAL SIGNS: 97.8, 73, 17, 132.75, 96% room air GENERAL: reclining in bed, awake, comfortable EYES: Pupils equal. Conjunctiva yellow . HEENT: External appearance of nose and ears normal, oral cavity grossly normal. NECK: JVD unable to assess; masses not palpable. HEART: First and second heart sounds are normal; decreasing edema. LUNGS: Respiratory rate increased; distant breath sounds. ABDOMEN: Soft, slightly distended nontender, liver spleen not palpable, no m asses palpable. Martel catheter PSYCH: Alert and oriented x3; mood and affect normal. DERMATOLOGICAL: Area of redness and moistness in the skin folds of the groin MUSCULOSKELETAL:No Clubbing/cyanosis;muscles-grossly intact INVESTIGATIONS, reviewed in the clinical context: April 08: Potassium 3.6 creatinine 1.12 April 07: Potassium 3.5 creatinine 0.9 to April 06: White count 7.4 hemoglobin 11.7 platelets 175 sodium 139 creatinine 0.99 pro time 15.6 total bilirubin 4.8 AST 52 ALT 21 albumin 2.3 lipase 17. Pro-BMP: 251 Coronavirus [PCR]: Not detected Abdominal ultrasound: Minimal ascites 2-D echocardiogram: Technically difficult study. Moderate concentric LVH. EF 55-60% Chest x-ray film personally reviewed by me-[underpenetrated] questionable venous prominence Scrotal ultrasound: Edema severe Ultrasound gallbladder: Limited exam exam. EKG tracing personally reviewed by me-sinus tachycardia, 121 Assessment and plan: -Hepatic cirrhosis, leading to severe fluid overload: Slow to respond Over 9 L and negative fluid balance. Continue IV Lasix. Aldactone. Fluid restriction. -Hepatic cirrhosis Aldactone. Diuretics. Follow with GI. -Doubt congestive heart failure -Failed gastric bypass and sleeve gastrectomy with her currently. Patient has followed up at [facility]. High risk of surgery hence no further intervention -Morbid obesity BMI 56 Weight loss measures -Primary osteoarthritis multiple joints Percocet when necessary -Chronic nicotine dependence, cigar smoker Nicotine patch -Alcohol use disorder Abstain -COPD in the current smoker Pro-air when necessary Continue Aldactone 100 mg. IV Lasix. We'll change to by mouth Lasix tomorrow. Diamox added. Repeat BMP tomorrow. Hopefully discharge in 24-48 hours.
[2021-04-09] MEDS: HEPARIN SODIUM,PORCINE/PF 5,000 UNIT/0.5 ML SYRINGE SQ SCH ×2 (00:41→08:43)
[2021-04-09] MEDS: FUROSEMIDE 10 MG/ML 4 ML VIAL IV SCH ×2 (00:41→09:17)
[2021-04-09 05:08] VITALS: BP 107/65; PULSE 94; RESP 20; TEMP 98.8
[2021-04-09 07:03] LABS: African American GFR (CKD) 68 (>60 ml/min/1.73 sqM); Anion Gap 3 mmol/L; Blood Urea Nitrogen 12 mg/dL (9-20); Calcium 8.7 mg/dL (8.4-10.2); Carbon Dioxide 34 mmol/L (22-30); Chloride 102 mmol/L (98-107); Glucose 91 mg/dL (74-99); Magnesium 1.9 mg/dL (1.6-2.3); Non-African American GFR(CKD) 59 (>60 ml/min/1.73 sqM); Potassium 3.4 mmol/L (3.5-5.1); Sodium 139 mmol/L (137-145)
[2021-04-09] MEDS ORDERED: Magnesium Replacement Protocol 1 EACH MISC MISCELLANE PRN (07:25)
[2021-04-09] MEDS ORDERED: Potassium Replacement Protocol 1 EACH MISC MISCELLANE PRN (08:35)
[2021-04-09] MEDS: NYSTATIN 100,000 UNIT/GM POWD 15 GM TOPICAL SCH (08:42)
[2021-04-09] MEDS: SPIRONOLACTONE 25 MG TAB PO SCH (08:43)
[2021-04-09] MEDS: NICOTINE 21MG/24HR PATCH TRANSDERM SCH (08:43)
[2021-04-09] MEDS: THIAMINE 100 MG TAB PO SCH (08:43)
[2021-04-09] MEDS: acetaZOLAMIDE 250 MG TAB PO SCH (08:43)
[2021-04-09] MEDS: METOPROLOL TARTRATE 50 MG TAB PO SCH (08:43)
[2021-04-09] MEDS: MONTELUKAST 10 MG TAB PO SCH (08:43)
[2021-04-09] MEDS: MAGNESIUM SULFATE-D5W PMX 1 GM in DEXTROSE/WATER 1 100ML.BAG IVPB SCH ×2 (08:44→10:13)
[2021-04-09] MEDS: MELOXICAM 7.5 MG TAB PO SCH (09:07)
[2021-04-09] MEDS: MAGNESIUM OXIDE 400 MG TAB PO SCH (09:07)
[2021-04-09] MEDS: GABAPENTIN 300 MG CAP PO PRN (09:18)
[2021-04-09] MEDS: POTASSIUM CHLORIDE ER 20 MEQ TAB.ER PO SCH ×2 (09:18→10:14)
[2021-04-09] MEDS: oxyCODONE-APAP 7.5-325MG 1 EACH TAB PO PRN (09:18)
--- NOTE | 2021-04-09 12:05 | P.PN ---
Subjective This is a pleasant 66-year-old male past medical history significant for chronic nicotine dependence, alcohol abuse, liver cirrhosis, hypertension, chronic anasarca, cholelithiasis, obstructive sleep apnea, obesity, gastric sleeve surgery. 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 We have been asked to see in consultation for sinus tachycardia and pulmonary edema. Patient presents to the emergency department with worsening scrotal and lower extremity edema for 3 days. He states he was in the hospital in [place] in January was diagnosed with cellulitis and venous insufficiency was prescribed PRN Lasix 20mg daily for edema. He states he was doing well. Over the past week, his edema worsened and was told to take 40mg daily, however, over the past 3 days he felt the Lasix was not helping and decided to present to the emergency department. Patient does not have a history of [place], Stroke, Coronary artery disease, or diabetes. He states he drinks 1 pint a day and smokes 1 Pack of cigarrettes every 3 days. 04/08/21 Patient seen at bedside, in no acute distress. His bilateral lower extremity edema and scrotal swelling has improved, he feels his swelling improved. Patient with significant urine output, negative fluid balance, 3L urine output over the past 24 hours and decrease in weight since admission. He is currently maintained on IV Lasix 40 mg Q8hr, metoprolol tartrate 50 mg twice a day, spironolactone 10 0 mg daily, Diamox 250mg BID. Echocardiogram revealed EF 5560%, no significant wall motion abnormalities, trivial pericardial effusion. Labs, sodium 139, potassium 3.4, BUN 12, serum creatinine 1.2, magnesium 1.9 PHYSICAL EXAMINATION Blood pressure 107/65 HR 94, afebrile SpO2 >92% on room air CONSTITUTIONAL: No apparent distress. HEENT: Neck Supple. No JVD. Sclerae is jaundiced CHEST EXAMINATION: Lungs are clear to auscultation. No chest wall tenderness is noted on palpation or with deep breathing. HEART EXAMINATION: Regular rate and rhythm. S1, S2 heard. No murmurs, gallops or rub. ABDOMEN: Soft, nontender. Positive bowel sounds. : Scrotal swelling noted, improved EXTREMITIES: Redness to bilateral shins/calves, 1+ edema lower extremities bilaterally. NEUROLOGIC EXAMINATION: Patient is awake, alert and oriented x3. ASSESSMENT Scrotal edema and bilateral lower extremity edema likely anasarca due to liver cirrhosis, improved Sinus tachycardia Liver cirrhosis Chronic anasarca Chronic nicotine dependence Alcohol abuse Obstructive sleep apnea History of hypertension Acute kidney injury, likely related to diuresis Hypoalbuminemia could be contributing to edema Hypomagnesemia Hypokalemia PLAN Transition to PO Lasix 40mg BID Monitor I/Os daily weights, renal function and electrolytes Diamox 250mg BID was added Continue metoprolol tartrate 50 mg twice a day Replace potassium per protocol Further recommendations based on clinical course Nurse Practitioner note has been reviewed, I agree with a documented findings and plan of care. Patient was seen and examined. Objective - Vital Signs Vital signs: Vital Signs Temp 98.8 F 04/09/21 05:00 Pulse 94 04/09/21 05:00 Resp 20 04/09/21 05:00 BP 107/65 04/09/21 05:00 Pulse Ox 93 L 04/09/21 05:00 Intake & Output 04/08/21 04/09/21 04/09/21 18:59 06:59 18:59 Intake Total 1040 360 Output Total 1500 1500 Balance -460 -1140 Weight 166.5 kg Intake: Oral 1040 360 Output: Urine 1500 1500 Uretheral (Martel) 1500 500 Other: Voiding Method Indwelling Catheter Indwelling Catheter Indwelling Catheter - Labs CBC & Chem 7: 04/06/21 06:13 04/09/21 05:44 Labs: Abnormal Lab Results - Last 24 Hours (Table) 04/09/21 Range/Units 05:44 Potassium 3.4 L (3.5-5.1) mmol/L Carbon Dioxide 34 H (22-30) mmol/L Creatinine 1.28 H (0.66-1.25) mg/dL
--- NOTE | 2021-04-09 12:14 | P.PN ---
Subjective Progress Note Date: 04/09/21 Principal diagnosis: Cirrhosis of the liver, ascites A 66-year-old male with history of alcoholism who presented with edema of bilateral lower extremities, testicles, with complaints of abdominal distention and ascites. Elevation in LFTs have been consistent with alcoholic cirrhosis of the liver. Patient is seen and evaluated today as a follow-up. Lower extremity and scrotal swelling has improved significantly. He denies any abdominal pain, nausea, or vomiting. Objective - Vital Signs Vital signs: Vital Signs Temp 98.8 F 04/09/21 05:00 Pulse 94 04/09/21 05:00 Resp 20 04/09/21 05:00 BP 107/65 04/09/21 05:00 Pulse Ox 93 L 04/09/21 05:00 Intake & Output 04/08/21 04/09/21 04/09/21 18:59 06:59 18:59 Intake Total 1040 360 Output Total 1500 1500 Balance -460 -1140 Weight 166.5 kg Intake: Oral 1040 360 Output: Urine 1500 1500 Uretheral (Martel) 1500 500 Other: Voiding Method Indwelling Catheter Indwelling Catheter Indwelling Catheter - Exam General appearance: The patient is alert, oriented, appears in no acute distress. HET: Head is normocephalic and atraumatic. Conjunctiva pink. Sclera anicteric. Neck: Supple without lymphadenopathy. Genitourinary: Scrotal swelling improving Abdomen: Soft, morbidly obese, nontender, nondistended with bowel sounds. No guarding or rigidity. Extremities: Normal skin color and turgor. Bilateral +2 lower extremity edema. Skin: No rashes, no jaundice Neurological: No focal deficits. Alert and oriented x3. - Labs CBC & Chem 7: 04/06/21 06:13 04/09/21 05:44 Labs: Abnormal Lab Results - Last 24 Hours (Table) 04/09/21 Range/Units 05:44 Potassium 3.4 L (3.5-5.1) mmol/L Carbon Dioxide 34 H (22-30) mmol/L Creatinine 1.28 H (0.66-1.25) mg/dL Assessment and Plan (1) Cirrhosis of liver Narrative/Plan: This is 66-year-old man who presented to the emergency room with generalized anasarca but more specifically scrotal swelling that has increased over the last 3 days. He was noted to have elevation in his LFTs with a total bilirubin of 4.8 AST 52 ALT 21 alkaline phosphatase 177 which is consistent with alcoholic cirrhosis of liver. The patient denies any previous known history of cirrhosis of liver or liver disease. He does have a significant history of alcohol abuse for which he states he quit trachea approximately 10 days ago. However he states that he was drinking a sixpack, pint or a fifth a day for several years, which he states was worse over the last 10 years due to depression from his weight and feels gastric sleeve. The patient likely has underlying cirrhosis of liver related to alcohol as well as there may be some component to fatty liver as well due to morbid obesity. Will order consultation to interventional radiology for further evaluation of ascites for possible paracentesis. Patient's anasarca improving. Maintain on Lasix 40 mg twice a day and Aldactone 100 mg twice a day. Patient will follow up with gastroenterology for continued surveillance of liver disease. Current Visit: Yes Status: Acute Code(s): K74.60 - UNSPECIFIED CIRRHOSIS OF LIVER SNOMED Code(s): 69985566 (2) Alcohol abuse Current Visit: Yes Status: Acute Code(s): F10.10 - ALCOHOL ABUSE, UNCOMPLICATED SNOMED Code(s): 46582455 (3) Anasarca Current Visit: Yes Status: Acute Code(s): R60.1 - GENERALIZED EDEMA SNOMED Code(s): 314402834 (4) Scrotal swelling Current Visit: Yes Status: Acute Code(s): N50.89 - OTHER SPECIFIED DISORDERS OF THE MALE GENITAL ORGANS SNOMED Code(s): 118111851 Plan: 1. Continue symptomatic and supportive care 2. Alcohol abstinence 3. Continue Lasix 40 mg twice a day and Aldactone on discharge 4. Elevate scrotum 5. Patient will need close outpatient follow-up with gastroenterology Thank you for this consultation, we will continue to follow. Patient is cleared for discharge from gastroenterology. We will sign off at this time. Dr. Benny Davies I agree with the dictator's note, documented as a scribe by Birgit Anderson.
[2021-04-09] MEDS ORDERED: FUROSEMIDE 40 MG TAB PO SCH (16:00)
--- NOTE | 2021-04-09 16:35 | P.DS ---
Providers Date of admission: 04/05/21 21:18 Expected date of discharge: 04/09/21 Attending physician: Jose Luis Siu Consults: 04/05/21 20:37 Consult Physician Routine Consulting Provider: Angie Davies Consult Reason/Comments: History of generalized anasarca, cirrhosis, hyperbilirubinemia, gallstones Do you want consulting provider notified?: Yes 04/05/21 21:20 Consult Physician Routine Consulting Provider: [facility] Consult Reason/Comments: Pulmonary edema,sinus tachycardia. Do you want consulting provider notified?: Yes Primary care physician: [facility] Course: Chief Complaint: Increased abdominal lower extremity swelling This is a 66-year-old patient who follows with Dr. Reyes. Chronic stable medical conditions include hypertension, diverticulosis, arthritis, sleeve gastrectomy done in August 2013, then had a gastric bypass done by [facility] [place]. Subsequently patient had some complications what he describes as a leak and was sent Dr. Hope [facility]. It was felt to be very risky. And no further intervention was done. Patient has a history of significant alcohol intake. Patient has been for about one year increasing swelling the started in the lower extremity that extended from his abdomen. Somewhat decreased appetite. No fever no chills. Normally has a bowel movement daily. Since 2014 is put back on a 100 pounds. Patient's last drink was about a week ago. Admitted with fluid overload from hepatic cirrhosis. IV Lasix. Low-sodium diet. Fluid restriction. April 07: Eating fair. Discussed with the patient. IV Lasix. Over 4 L and fluid overload. April 08: Oral intake fair. Good urine output. About 9L in negative fluid balance. Edema coming down. On IV Lasix and Aldactone. Did sit up in a chair. April 09: Over 10 L in negative fluid balance. Patient advised about strict fluid restriction. We'll discharge on Aldactone and Lasix. Repeat labs outpatient. international bank manager arranging for transport Discussion and discharge planning more than 35 minutes Consultation: Dr. Benny Davies from GI Dr. Emory Davies from cardiology Past medical history to include: Hypertension, diabetic colitis, gout, polyps, arthritis, lung abscess in 2014, gastrics sleeve leak, venous insufficiency left lower extremity, gallstones sleeve gastrectomy August 2013, gastric bleed in 2014, 2016 gastric bypass Social history: Lives with his mother and nephew. Drinks 3-4 glasses of wine daily and a pint of [place] about 64 nights a week. Cigars a few times a week. Family history: Reviewed, noncontributory to presentation Physical examination: VITAL SIGNS: 98.8, 94, 20, 107/65, 93% room air GENERAL: reclining in bed, awake, comfortable EYES: Pupils equal. Conjunctiva yellow . HEENT: External appearance of nose and ears normal, oral cavity grossly normal. NECK: JVD unable to assess; masses not palpable. HEART: First and second heart sounds are normal; edema improved LUNGS: Respiratory rate increased; distant breath sounds. ABDOMEN: Soft, slightly distended nontender, liver spleen not palpable, no masses palpable. Martel catheter PSYCH: Alert and oriented x3; mood and affect normal. DERMATOLOGICAL: Area of redness and moistness in the skin folds of the groin MUSCULOSKELETAL:No Clubbing/cyanosis;muscles-grossly intact INVESTIGATIONS, reviewed in the clinical context: April 09: Creatinine 1.28 April 06: White count 7.4 hemoglobin 11.7 platelets 175 sodium 139 creatinine 0.99 pro time 15.6 total bilirubin 4.8 AST 52 ALT 21 albumin 2.3 lipase 17. Pro-BMP: 251 Coronavirus [PCR]: Not detected Abdominal ultrasound: Minimal ascites 2-D echocardiogram: Technically difficult study. Moderate concentric LVH. EF 55-60% Chest x-ray film personally reviewed by me-[underpenetrated] questionable venous prominence Scrotal ultrasound: Edema severe Ultrasound gallbladder: Limited exam exam. EKG tracing personally reviewed by me-sinus tachycardia, 121 Assessment and plan: - severe fluid overload, secondary to hepatic cirrhosis: Over 10 L and negative fluid balance. Continue IV Lasix. Aldactone. Fluid restriction. Discharge on Lasix 40 mg twice a day and Aldactone 100 mg twice a day. -Hepatic cirrhosis Aldactone. Diuretics. Follow with GI. -Doubt congestive heart failure -Failed gastric bypass and sleeve gastrectomy with her currently. Patient has followed up at [facility]. High risk of surgery hence no further intervention -Morbid obesity BMI 56 Weight loss measures -Primary osteoarthritis multiple joints Percocet when necessary -Chronic nicotine dependence, cigar smoker Nicotine patch -Alcohol use disorder Abstain -COPD in the current smoker Pro-air when necessary Disposition: Home Plan - Discharge Summary Discharge Rx Participant: Yes New Discharge Prescriptions: New Spironolactone [Aldactone] 100 mg PO BID #60 tab Magnesium Oxide [Mag-Ox] 400 mg PO BID #30 tab Nystatin 100,000 Unit/gm Powd [Mycostatin Powder] 1 applic TOPICAL BID Continue oxyCODONE-APAP 7.5-325MG [Percocet 7.5-325 mg] 1 tab PO TID PRN PRN Reason: Pain Metoprolol Tartrate [Lopressor] 50 mg PO BID Gabapentin [Neurontin] 300 mg PO TID PRN PRN Reason: Pain Nicotine 21Mg/24Hr Patch [Habitrol] 1 patch TRANSDERM DAILY Montelukast [Singulair] 10 mg PO DAILY Albuterol Sulfate [Proair Hfa] 2 puff INHALATION RT-Q6H PRN PRN Reason: Shortness Of Breath Meloxicam [Mobic] 15 mg PO DAILY Cyclobenzaprine [Flexeril] 10 mg PO HS PRN PRN Reason: Pain Changed Furosemide [Lasix] 40 mg PO BID #60 tab Discharge Medication List oxyCODONE-APAP 7.5-325MG [Percocet 7.5-325 mg] 1 tab PO TID PRN 01/14/16 [History] Metoprolol Tartrate [Lopressor] 50 mg PO BID 01/25/19 [History] Gabapentin [Neurontin] 300 mg PO TID PRN 01/28/19 [History] Albuterol Sulfate [Proair Hfa] 2 puff INHALATION RT-Q6H PRN 04/05/21 [History] Cyclobenzaprine [Flexeril] 10 mg PO HS PRN 04/05/21 [History] Meloxicam [Mobic] 15 mg PO DAILY 04/05/21 [History] Montelukast [Singulair] 10 mg PO DAILY 04/05/21 [History] Nicotine 21Mg/24Hr Patch [Habitrol] 1 patch TRANSDERM DAILY 04/05/21 [History] Furosemide [Lasix] 40 mg PO BID #60 tab 04/09/21 [Rx] Magnesium Oxide [Mag-Ox] 400 mg PO BID #30 tab 04/09/21 [Rx] Nystatin 100,000 Unit/gm Powd [Mycostatin Powder] 1 applic TOPICAL BID 04/09/21 [Rx] Spironolactone [Aldactone] 100 mg PO BID #60 tab 04/09/21 [Rx] Follow up Appointment(s)/Referral(s): Edison Reyes MD [Primary Care Provider] - 1-2 days (The office was unavailable please call and schedule this appointment.) Angie Davies MD [STAFF PHYSICIAN] - 05/11/21 12:30 pm Fernandez Wahl [NON-STAFF] - 1 Week Activity/Diet/Wound Care/Special Instructions: fluid restriction ; 1800 cc/day low salt diet cathy wraps Discharge Disposition: HOME SELF-CARE
== END 2021-04-09 16:22 | disposition home or self-care (01) ==
LOC: EC 19:13 → 5NMEDONC 21:18 → INTOOBSV 21:18 → 5NMEDONC 22:11 → UNDODISIN 04-09 16:22
PROVIDERS: ADMIT Hospitalist; ATTEND Hospitalist
DX: K70.31 Alcoholic cirrhosis of liver with ascites (principal); N17.9 Acute kidney failure, unspecified; E88.09 Other disorders of plasma-protein metabolism, not elsewhere classified; K70.0 Alcoholic fatty liver; E66.01 Morbid (severe) obesity due to excess calories; Z68.43 Body mass index [BMI] 50.0-59.9, adult; J44.9 Chronic obstructive pulmonary disease, unspecified; F10.20 Alcohol dependence, uncomplicated; F17.290 Nicotine dependence, other tobacco product, uncomplicated; Z20.822 Contact with and (suspected) exposure to COVID-19; I10 Essential (primary) hypertension; E78.6 Lipoprotein deficiency; E87.70 Fluid overload, unspecified; T50.1X6A Underdosing of loop [high-ceiling] diuretics, initial encounter; T50.1X5A Adverse effect of loop [high-ceiling] diuretics, initial encounter; Z88.4 Allergy status to anesthetic agent; Z91.128 Patient's intentional underdosing of medication regimen for other reason; E83.42 Hypomagnesemia; D53.9 Nutritional anemia, unspecified; N50.89 Other specified disorders of the male genital organs; N50.82 Scrotal pain; I87.2 Venous insufficiency (chronic) (peripheral); K80.20 Calculus of gallbladder without cholecystitis without obstruction; M76.9 Unspecified enthesopathy, lower limb, excluding foot; K08.89 Other specified disorders of teeth and supporting structures; G47.33 Obstructive sleep apnea (adult) (pediatric); K57.90 Diverticulosis of intestine, part unspecified, without perforation or abscess without bleeding; K59.00 Constipation, unspecified; M15.9 Polyosteoarthritis, unspecified; R00.0 Tachycardia, unspecified; M54.9 Dorsalgia, unspecified; F17.210 Nicotine dependence, cigarettes, uncomplicated; Z71.6 Tobacco abuse counseling; Z79.1 Long term (current) use of non-steroidal anti-inflammatories (NSAID); Z79.899 Other long term (current) drug therapy; Z86.19 Personal history of other infectious and parasitic diseases; Z87.39 Personal history of other diseases of the musculoskeletal system and connective tissue; Z97.3 Presence of spectacles and contact lenses; Z90.89 Acquired absence of other organs; Z87.19 Personal history of other diseases of the digestive system; Z98.890 Other specified postprocedural states
CPT/HCPCS: 99285; 96376 ×2; 96365; 96366 ×2; 96372 ×2; 96375; 36415; 93005; 93306; 83880; 80053 ×2; 80048 ×3; 82150; 83605; 83690; 83735 ×3; 84484; 85025 ×2; 85610; 85730; 81001; 87635; 71045; 93976; 76870; 76705 ×2; G0378 ×5; S4990 ×4; J2270 ×2; J1940 ×5; J3475 ×2; J1644 ×4; 96374

== ENCOUNTER 2021-09-29 13:26 | Emergency (ER) | payer OTHER ==
[2021-09-29 14:59] VITALS: TEMP 97.7
--- NOTE | 2021-09-29 16:06 | ED ---
Fall HPI - General Chief Complaint: Fall Stated Complaint: Fall Time Seen by Provider: 09/29/21 16:01 Source: patient, EMS Mode of arrival: EMS - History of Present Illness Initial Comments: 66-year-old male with past medical history of daily alcohol use, liver cirrhosis, hypertension, obesity with bariatric surgery who presents to the emergency department for generalized weakness at home. States he awoke this morning around 5 AM and it related to the bathroom. He normally ambulates with a walker however did not have it with him. When he was attempting to walk back to his room he became very weak and braced himself in between the joyner. States that he could not hold himself anymore so he slid to the ground. Denies any pain or injury from the fall. He is normally cared for by his elderly mother. She was unable to get him up off the ground and therefore an ambulance was called. He has had increasing weakness in his lower extremities. States that he has been taking his Lasix twice daily for the past week when previously he only took it once a day. He is also on spironolactone. He admits to a poor appetite however continues to drink a pint of whiskey a day. When questioning about his urine output he states that he has had significant scrotal edema with decreased urination. Also has had some dark stools. No fevers or cough. No chest pain. No other alleviating, precipitating or modifying factors - Related Data Home Medications Medication Instructions Recorded Confirmed oxyCODONE-APAP 7.5-325MG [Percocet 1 tab PO TID PRN 01/14/16 09/29/21 7.5-325 mg] Metoprolol Tartrate [Lopressor] 50 mg PO BID 01/25/19 09/29/21 Gabapentin [Neurontin] 300 mg PO TID PRN 01/28/19 09/29/21 Albuterol Sulfate [Proair Hfa] 2 puff INHALATION RT-Q6H PRN 04/05/21 09/29/21 Meloxicam [Mobic] 15 mg PO DAILY 04/05/21 09/29/21 Montelukast [Singulair] 10 mg PO DAILY 04/05/21 09/29/21 Ergocalciferol (Vitamin D2) 1,250 mcg PO Q7D 09/29/21 09/29/21 [Drisdol (50,000 Iu)] Potassium Chloride ER [K-Dur 10] 10 meq PO BID 09/29/21 09/29/21 Zolpidem [Ambien] 10 mg PO HS 09/29/21 09/29/21 Previous Rx's Medication Instructions Recorded Furosemide [Lasix] 40 mg PO BID #60 tab 04/09/21 Magnesium Oxide [Mag-Ox] 400 mg PO BID #30 tab 04/09/21 Spironolactone [Aldactone] 100 mg PO BID #60 tab 04/09/21 Allergies Allergy/AdvReac Type Severity Reaction Status Date / Time No Known Allergies Allergy Verified 09/29/21 14:59 Review of Systems ROS Statement: Those systems with pertinent positive or pertinent negative responses have been documented in the HPI. ROS Other: All systems not noted in ROS Statement are negative. Past Medical History Past Medical History: Hypertension Additional Past Medical History / Comment(s): Glasses, loose and chipped teeth, Diverticulitis, Gout, Polyps, Back pain, Arthritis, lung abcess 03/06/15 Pt has been seeing physician in [place] for leak in sleeve, venous insufficiency in Left leg, RIght hip has spur, gallstones, History of Any Multi-Drug Resistant Organisms: None Reported Past Surgical History: Bariatric Surgery, Orthopedic Surgery, Tonsillectomy Additional Past Surgical History / Comment(s): Right and Left ACL, polyps removed, sleeve gastrectomy August 2013, Gastric leak September 2014, March 2015 Gastric Bypass performed by ([facility] [place]) Past Anesthesia/Blood Transfusion Reactions: No Reported Reaction Past Psychological History: No Psychological Hx Reported Smoking Status: Current some day smoker Past Alcohol Use History: Daily Past Drug Use History: None Reported General Exam General appearance: alert, in no apparent distress, obese Eye exam: Present: PERRL, EOMI, scleral icterus ENT exam: Present: mucous membranes dry Neck exam: Present: normal inspection. Absent: tenderness, meningismus, lymphadenopathy Respiratory exam: Present: normal lung sounds bilaterally. Absent: respiratory distress, wheezes, rales, rhonchi, stridor Cardiovascular Exam: Present: regular rate, normal rhythm, normal heart sounds. Absent: systolic murmur, diastolic murmur, rubs, gallop, clicks GI/Abdominal exam: Present: other (Obese. Mild fluid wave) Rectal exam: Present: heme (+) stool, black stool exam: Present: scrotal swelling Extremities exam: Present: pedal edema (4+), other (Erythematous, swollen left lower extremity) Neurological exam: Present: alert, oriented X3 Psychiatric exam: Present: flat affect Skin exam: Present: warm, dry Course Vital Signs 09/29/21 09/29/21 09/29/21 14:45 16:20 16:29 Temperature 97.7 F Pulse Rate 84 80 Respiratory 18 16 Rate Blood Pressure 116/71 88/48 O2 Sat by Pulse 100 99 Oximetry 09/29/21 09/29/21 09/29/21 16:30 17:00 17:30 Temperature Pulse Rate 80 82 85 Respiratory 15 15 16 Rate Blood Pressure 88/48 80/53 98/52 O2 Sat by Pulse 96 100 96 Oximetry 09/29/21 09/29/21 18:30 19:30 Temperature Pulse Rate 86 80 Respiratory 15 Rate Blood Pressure 105/69 92/52 O2 Sat by Pulse Oximetry - Reevaluation(s) Reevaluation #1: Delilah refused admission - needs GI who is not available - requesting transfer to outside facility. Patient notified that he will need transfer and asked to make decision where he wants to go 09/29/21 18:51 Reevaluation #2: Still awaiting information from patient as to where he would like to be transferred to 09/29/21 20:53 Medical Decision Making - Medical Decision Making Upon arrival patient was placed into room 2. A thorough history and physical exam was performed. He is placed on continuous pulse ox and cardiac monitoring. Patient does arrive hypotensive with a blood pressure of 80/53. Volume overload however he was given a 500 bolus. Laboratory studies are conducted which revealed a hemoglobin of 10.6. INR 1.6. Creatinine of 1.4. Lactic acid 2.2. Total bilirubin is 12.5. Conjugated is 4.3 with an unconjugated of 4.6 and a delta of 3.1. AST 60. Urinalysis is positive for many bacteria. I did perform a rectal exam on the patient which demonstrates dark stool which is p ositive for blood. I did review the patient's record which does demonstrate previous history of cholelithiasis. Supplemented this with a gallbladder ultrasound which demonstrates small abdominal ascites and hepatocellular disease consistent with cirrhosis. Gallbladder appears within normal limits. Chest x- ray was obtained which demonstrates airspace opacities over the inferior aspects of the lungs which could be pneumonia/aspiration. Right pleural effusion. Blood cultures obtained and the patient was given a dose of Unasyn for his left lower externally cellulitis. Diuresis will be withheld at this time due to hypotension, GI bleed. I called and spoke with Matheny who refused admission as GI surgeon is not available at this time. Patient requesting [facility] as he has been previously hospitalized there. I called and spoke with Dr. Joseph who agreed to accept transfer. Patient's blood pressure has been valuated upon multiple occasions and has improved with a systolic of 105. COBRA forms are initiated and signed by patient. Aware of risks and benefits of transfer and p atient transferred in stable condition - Lab Data Result diagrams: 09/29/21 17:23 09/29/21 17:23 Lab Results 09/29/21 09/29/21 09/29/21 Range/Units 17:23 17:23 17:23 WBC 10.6 (3.8-10.6) k/uL RBC 2.67 L (4.30-5.90) m/uL Hgb 10.6 L (13.0-17.5) gm/dL Hct 32.9 L (39.0-53.0) % MCV 123.2 H (80.0-100.0) fL MCH 39.8 H (25.0-35.0) pg MCHC 32.3 (31.0-37.0) g/dL RDW 15.5 (11.5-15.5) % Plt Count 199 (150-450) k/uL MPV 8.4 Neutrophils % 75 % Lymphocytes % 12 % Monocytes % 9 % Eosinophils % 2 % Basophils % 1 % Neutrophils # 7.9 H (1.3-7.7) k/uL Lymphocytes # 1.2 (1.0-4.8) k/uL Monocytes # 1.0 (0-1.0) k/uL Eosinophils # 0.2 (0-0.7) k/uL Basophils # 0.1 (0-0.2) k/uL Hypochromasia Slight Macrocytosis Marked A PT 16.2 H (9.0-12.0) sec INR 1.6 H (<1.2) APTT 23.3 (22.0-30.0) sec Sodium 140 (137-145) mmol/L Potassium 4.8 (3.5-5.1) mmol/L Chloride 107 (98-107) mmol/L Carbon Dioxide 25 (22-30) mmol/L Anion Gap 8 mmol/L BUN 33 H (9-20) mg/dL Creatinine 1.47 H (0.66-1.25) mg/dL Est GFR (CKD-EPI)AfAm 58 (>60 ml/min/1.73 sqM) Est GFR (CKD-EPI)NonAf 50 (>60 ml/min/1.73 sqM) Glucose 92 (74-99) mg/dL Lactic Ac Sepsis Rflx Plasma Lactic Acid Dave (0.7-2.0) mmol/L Calcium 8.4 (8.4-10.2) mg/dL Magnesium 2.3 (1.6-2.3) mg/dL Total Bilirubin 12.5 H (0.2-1.3) mg/dL Conjugated Bilirubin (0.0-0.3) mg/dL Unconjugated Bilirubin (0.0-1.1) mg/dL Delta Bilirubin (0.0-0.2) mg/dL AST 60 H (17-59) U/L ALT 24 (4-49) U/L Alkaline Phosphatase 112 (38-126) U/L Troponin I (0.000-0.034) ng/mL C-Reactive Protein 5.2 H (<1.0) mg/dL NT-Pro-B Natriuret Pep pg/mL Total Protein 7.8 (6.3-8.2) g/dL Albumin 2.8 L (3.5-5.0) g/dL Urine Color Urine Appearance (Clear) Urine pH (5.0-8.0) Ur Specific [employer] (1.001-1.035) Urine Protein (Negative) Urine Glucose (UA) (Negative) Urine Ketones (Negative) Urine Blood (Negative) Urine Nitrite (Negative) Urine Bilirubin (Negative) Urine Urobilinogen (<2.0) mg/dL Ur Leukocyte Esterase (Negative) Urine RBC (0-5) /hpf Urine WBC (0-5) /hpf Ur Squamous Epith Cells (0-4) /hpf Urine Bacteria (None) /hpf Hyaline Casts (0-2) /lpf Urine Mucus (None) /hpf Stool Occult Blood (Negative) 09/29/21 09/29/21 09/29/21 Range/Units 17:23 17:23 17:23 WBC (3.8-10.6) k/uL RBC (4.30-5.90) m/uL Hgb (13.0-17.5) gm/dL Hct (39.0-53.0) % MCV (80.0-100.0) fL MCH (25.0-35.0) pg MCHC (31.0-37.0) g/dL RDW (11.5-15.5) % Plt Count (150-450) k/uL MPV Neutrophils % % Lymphocytes % % Monocytes % % Eosinophils % % Basophils % % Neutrophils # (1.3-7.7) k/uL Lymphocytes # (1.0-4.8) k/uL Monocytes # (0-1.0) k/uL Eosinophils # (0-0.7) k/uL Basophils # (0-0.2) k/uL Hypochromasia Macrocytosis PT (9.0-12.0) sec INR (<1.2) APTT (22.0-30.0) sec Sodium (137-145) mmol/L Potassium (3.5-5.1) mmol/L Chloride (98-107) mmol/L Carbon Dioxide (22-30) mmol/L Anion Gap mmol/L BUN (9-20) mg/dL Creatinine (0.66-1.25) mg/dL Est GFR (CKD-EPI)AfAm (>60 ml/min/1.73 sqM) Est GFR (CKD-EPI)NonAf (>60 ml/min/1.73 sqM) Glucose (74-99) mg/dL Lactic Ac Sepsis Rflx Plasma Lactic Acid Dave 2.2 H* (0.7-2.0) mmol/L Calcium (8.4-10.2) mg/dL Magnesium (1.6-2.3) mg/dL Total Bilirubin (0.2-1.3) mg/dL Conjugated Bilirubin (0.0-0.3) mg/dL Unconjugated Bilirubin (0.0-1.1) mg/dL Delta Bilirubin (0.0-0.2) mg/dL AST (17-59) U/L ALT (4-49) U/L Alkaline Phosphatase (38-126) U/L Troponin I <0.012 (0.000-0.034) ng/mL C-Reactive Protein (<1.0) mg/dL NT-Pro-B Natriuret Pep 702 pg/mL Total Protein (6.3-8.2) g/dL Albumin (3.5-5.0) g/dL Urine Color Urine Appearance (Clear) Urine pH (5.0-8.0) Ur Specific [employer] (1.001-1.035) Urine Protein (Negative) Urine Glucose (UA) (Negative) Urine Ketones (Negative) Urine Blood (Negative) Urine Nitrite (Negative) Urine Bilirubin (Negative) Urine Urobilinogen (<2.0) mg/dL Ur Leukocyte Esterase (Negative) Urine RBC (0-5) /hpf Urine WBC (0-5) /hpf Ur Squamous Epith Cells (0-4) /hpf Urine Bacteria (None) /hpf Hyaline Casts (0-2) /lpf Urine Mucus (None) /hpf Stool Occult Blood (Negative) 09/29/21 09/29/21 09/29/21 Range/Units 18:17 18:29 18:44 WBC (3.8-10.6) k/uL RBC (4.30-5.90) m/uL Hgb (13.0-17.5) gm/dL Hct (39.0-53.0) % MCV (80.0-100.0) fL MCH (25.0-35.0) pg MCHC (31.0-37.0) g/dL RDW (11.5-15.5) % Plt Count (150-450) k/uL MPV Neutrophils % % Lymphocytes % % Monocytes % % Eosinophils % % Basophils % % Neutrophils # (1.3-7.7) k/uL Lymphocytes # (1.0-4.8) k/uL Monocytes # (0-1.0) k/uL Eosinophils # (0-0.7) k/uL Basophils # (0-0.2) k/uL Hypochromasia Macrocytosis PT (9.0-12.0) sec INR (<1.2) APTT (22.0-30.0) sec Sodium (137-145) mmol/L Potassium (3.5-5.1) mmol/L Chloride (98-107) mmol/L Carbon Dioxide (22-30) mmol/L Anion Gap mmol/L BUN (9-20) mg/dL Creatinine (0.66-1.25) mg/dL Est GFR (CKD-EPI)AfAm (>60 ml/min/1.73 sqM) Est GFR (CKD-EPI)NonAf (>60 ml/min/1.73 sqM) Glucose (74-99) mg/dL Lactic Ac Sepsis Rflx Y Plasma Lactic Acid Dave (0.7-2.0) mmol/L Calcium (8.4-10.2) mg/dL Magnesium (1.6-2.3) mg/dL Total Bilirubin (0.2-1.3) mg/dL Conjugated Bilirubin (0.0-0.3) mg/dL Unconjugated Bilirubin (0.0-1.1) mg/dL Delta Bilirubin (0.0-0.2) mg/dL AST (17-59) U/L ALT (4-49) U/L Alkaline Phosphatase (38-126) U/L Troponin I (0.000-0.034) ng/mL C-Reactive Protein (<1.0) mg/dL NT-Pro-B Natriuret Pep pg/mL Total Protein (6.3-8.2) g/dL Albumin (3.5-5.0) g/dL Urine Color [place] Urine Appearance Clear (Clear) Urine pH 6.0 (5.0-8.0) Ur Specific [employer] 1.019 (1.001-1.035) Urine Protein Trace H (Negative) Urine Glucose (UA) Negative (Negative) Urine Ketones Trace H (Negative) Urine Blood Negative (Negative) Urine Nitrite Negative (Negative) Urine Bilirubin 2+ H (Negative) Urine Urobilinogen 12.0 (<2.0) mg/dL Ur Leukocyte Esterase Moderate H (Negative) Urine RBC 1 (0-5) /hpf Urine WBC 34 H (0-5) /hpf Ur Squamous Epith Cells 1 (0-4) /hpf Urine Bacteria Many H (None) /hpf Hyaline Casts 3 H (0-2) /lpf Urine Mucus Rare H (None) /hpf Stool Occult Blood Positive (Negative) 09/29/21 Range/Units 19:11 WBC (3.8-10.6) k/uL RBC (4.30-5.90) m/uL Hgb (13.0-17.5) gm/dL Hct (39.0-53.0) % MCV (80.0-100.0) fL MCH (25.0-35.0) pg MCHC (31.0-37.0) g/dL RDW (11.5-15.5) % Plt Count (150-450) k/uL MPV Neutrophils % % Lymphocytes % % Monocytes % % Eosinophils % % Basophils % % Neutrophils # (1.3-7.7) k/uL Lymphocytes # (1.0-4.8) k/uL Monocytes # (0-1.0) k/uL Eosinophils # (0-0.7) k/uL Basophils # (0-0.2) k/uL Hypochromasia Macrocytosis PT (9.0-12.0) sec INR (<1.2) APTT (22.0-30.0) sec Sodium (137-145) mmol/L Potassium (3.5-5.1) mmol/L Chloride (98-107) mmol/L Carbon Dioxide (22-30) mmol/L Anion Gap mmol/L BUN (9-20) mg/dL Creatinine (0.66-1.25) mg/dL Est GFR (CKD-EPI)AfAm (>60 ml/min/1.73 sqM) Est GFR (CKD-EPI)NonAf (>60 ml/min/1.73 sqM) Glucose (74-99) mg/dL Lactic Ac Sepsis Rflx Plasma Lactic Acid Dave (0.7-2.0) mmol/L Calcium (8.4-10.2) mg/dL Magnesium (1.6-2.3) mg/dL Total Bilirubin 12.0 H (0.2-1.3) mg/dL Conjugated Bilirubin 4.3 H (0.0-0.3) mg/dL Unconjugated Bilirubin 4.6 H (0.0-1.1) mg/dL Delta Bilirubin 3.1 H (0.0-0.2) mg/dL AST (17-59) U/L ALT (4-49) U/L Alkaline Phosphatase (38-126) U/L Troponin I (0.000-0.034) ng/mL C-Reactive Protein (<1.0) mg/dL NT-Pro-B Natriuret Pep pg/mL Total Protein (6.3-8.2) g/dL Albumin (3.5-5.0) g/dL Urine Color Urine Appearance (Clear) Urine pH (5.0-8.0) Ur Specific [employer] (1.001-1.035) Urine Protein (Negative) Urine Glucose (UA) (Negative) Urine Ketones (Negative) Urine Blood (Negative) Urine Nitrite (Negative) Urine Bilirubin (Negative) Urine Urobilinogen (<2.0) mg/dL Ur Leukocyte Esterase (Negative) Urine RBC (0-5) /hpf Urine WBC (0-5) /hpf Ur Squamous Epith Cells (0-4) /hpf Urine Bacteria (None) /hpf Hyaline Casts (0-2) /lpf Urine Mucus (None) /hpf Stool Occult Blood (Negative) - EKG Data EKG Comments: EKG demonstrates sinus rhythm with a rate of 82. OH interval 129. QRS 86. QTC of 442. Q wave with an inverted T-wave in lead 3. No acute ST segment elevations Disposition Clinical Impression: Anasarca, Scrotal swelling, History of cirrhosis, Alcohol dependence, Fluid overload, Hypotension, Cirrhosis of liver, UTI (urinary tract infection), Left leg cellulitis, GI bleed Disposition: OTHER INSTITUTION NOT DEFINED Condition: Serious Is patient prescribed a controlled substance at d/c from ED?: No Referrals: Edison Reyes MD [Primary Care Provider] - 1-2 days Time of Disposition: 21:51 - Out of Hospital Transfer - Req. Specs Out of Hospital Transfer - Requested Specifics: Other Emergency Center ([facility]
[2021-09-29] MEDS ORDERED: SODIUM CHLORIDE 0.9% 500 ML 500 ML IV STA (16:30)
[2021-09-29 17:46] LABS: INR 1.6 (<1.2); Partial Thromboplastin Time 23.3 sec (22.0-30.0); Prothrombin Time 16.2 sec (9.0-12.0)
[2021-09-29 17:52] LABS: Basophils # (A) 0.1 k/uL (0-0.2); Basophils % (A) 1 %; Eosinophils # (A) 0.2 k/uL (0-0.7); Eosinophils % (A) 2 %; HCT 32.9 % (39.0-53.0); HGB 10.6 gm/dL (13.0-17.5); Hypochromasia Slight; Lymphocytes # (A) 1.2 k/uL (1.0-4.8); Lymphocytes % (A) 12 %; MCH 39.8 pg (25.0-35.0); MCHC 32.3 g/dL (31.0-37.0); MCV 123.2 fL (80.0-100.0); Macrocytosis Marked; Mean Platelet Volume 8.4; Monocytes % (A) 9 %; Neutrophils # (A) 7.9 k/uL (1.3-7.7); Neutrophils % (A) 75 %; Platelet Count 199 k/uL (150-450); RBC 2.67 m/uL (4.30-5.90); RDW 15.5 % (11.5-15.5); WBC 10.6 k/uL (3.8-10.6)
[2021-09-29 18:09] LABS: Albumin 2.8 g/dL (3.5-5.0); C Reactive Protein 5.2 mg/dL (<1.0); Calcium 8.4 mg/dL (8.4-10.2); Magnesium 2.3 mg/dL (1.6-2.3); Potassium 4.8 mmol/L (3.5-5.1); Total Bilirubin 12.5 mg/dL (0.2-1.3); Total Protein 7.8 g/dL (6.3-8.2)
--- NOTE | 2021-09-29 18:18 | XR ---
EXAMINATION TYPE: XR chest 2V DATE OF EXAM: 09/29/2021 6:04 PM COMPARISON: Chest radiographs from 04/05/2019 TECHNIQUE: XR chest 2V Frontal and lateral views of the chest. CLINICAL INDICATION:Male, 66 years old with history of Weakness; FINDINGS: Lungs/Pleura: Opacities seen within lung bases on lateral view. There is questionable bilateral pleur al effusions right greater than left. No evidence of pneumothorax. Pulmonary vascularity: Unremarkable. Heart/mediastinum: Cardiomediastinal silhouette is partially obscured due to overlying and adjacent o pacities. Musculoskeletal: No acute osseous pathology. IMPRESSION: 1. Airspace opacities projecting over the posterior inferior aspects of the lungs on lateral view. C orrelate for pneumonia/aspiration. 2. Suspected right pleural effusion.
[2021-09-29 18:44] VITALS: RESP 15
[2021-09-29 18:54] LABS: Appearance,Urine Clear (Clear); Bacteria,Urine Many /hpf; Bilirubin,Urine 2+ (Negative); Blood,Urine Negative (Negative); Color,Urine Orange; Glucose,Urine (UA) Negative (Negative); Hyaline Casts,Urine 3 /lpf (0-2); Ketones,Urine Trace (Negative); Leukocyte Esterase,Urine Moderate (Negative); Mucus,Urine Rare /hpf; Nitrite,Urine Negative (Negative); Protein,Urine Trace (Negative); RBC,Urine 1 /hpf (0-5); Specific Gravity,Urine 1.019 (1.001-1.035); Squamous Epithelial Cell,Urine 1 /hpf (0-4); WBC,Urine 34 /hpf (0-5)
[2021-09-29 19:19] LABS: Bilirubin, Conjugated 4.3 mg/dL (0.0-0.3); Bilirubin, Delta 3.1 mg/dL (0.0-0.2); Bilirubin,Unconjugated 4.6 mg/dL (0.0-1.1)
[2021-09-29] MEDS ORDERED: AMPICILLIN-SULBACTAM 3 GM in SODIUM CHLORIDE 0.9% 100 ML IVPB STA (19:39)
[2021-09-29 19:58] VITALS: BP 92/52; PULSE 80
--- NOTE | 2021-09-29 20:18 | US ---
EXAMINATION TYPE: US gallbladder DATE OF EXAM: 09/29/2021 COMPARISON: US 2021 CLINICAL HISTORY: elevated liver enzymes. EXAM MEASUREMENTS: Liver Length: unable to penetrate well enough to measure Gallbladder Wall: 0.3 cm CBD: not seen Right Kidney: not seen Extremely difficult and limited study due to morbidly obese patient Pancreas: obscured Liver: difficult to penetrate, hyperechoic, there is a nodular border. Gallbladder: appears wnl Evidence for sonographic Bey's sign: no CBD: not seen Right Kidney: not seen Abdominal ascites IMPRESSION: 1. Small abdominal ascites. 2. Hepatocellular disease consistent with cirrhosis.
[2021-09-29] MEDS ORDERED: SODIUM CHLORIDE 0.9% 1,000 ML IV SCH (22:00)
== END 2021-09-29 22:35 | disposition other institution (70) ==
LOC: EC 13:26
DX: R60.1 Generalized edema (principal); N50.89 Other specified disorders of the male genital organs; E87.70 Fluid overload, unspecified; I95.9 Hypotension, unspecified; K74.60 Unspecified cirrhosis of liver; L03.116 Cellulitis of left lower limb; K92.2 Gastrointestinal hemorrhage, unspecified; N39.0 Urinary tract infection, site not specified; Z87.19 Personal history of other diseases of the digestive system; F10.20 Alcohol dependence, uncomplicated; I10 Essential (primary) hypertension; F17.200 Nicotine dependence, unspecified, uncomplicated; Z79.899 Other long term (current) drug therapy
CPT/HCPCS: 36415; 93005; 83880; 80053; 82248; 83605; 83735; 84484; 85025; 85610; 85730; 86140; 82272; 81001; 87040; 71046; 76705; 99285; 96365; J0295

== ENCOUNTER 2021-10-26 16:52 | Inpatient (IN) | payer OTHER ==
[2021-10-26 17:30] LABS: Basophils # (A) 0.1 k/uL (0-0.2); Basophils % (A) 1 %; Eosinophils # (A) 0.2 k/uL (0-0.7); Eosinophils % (A) 3 %; HCT 27.6 % (39.0-53.0); Hypochromasia Moderate; Lymphocytes # (A) 1.3 k/uL (1.0-4.8); Lymphocytes % (A) 18 %; MCH 38.7 pg (25.0-35.0); MCHC 32.6 g/dL (31.0-37.0); MCV 118.9 fL (80.0-100.0); Macrocytosis Marked; Mean Platelet Volume 7.8; Monocytes # (A) 0.6 k/uL (0-1.0); Monocytes % (A) 8 %; Neutrophils # (A) 4.7 k/uL (1.3-7.7); Neutrophils % (A) 67 %; Platelet Count 170 k/uL (150-450); RBC 2.32 m/uL (4.30-5.90); RDW 13.8 % (11.5-15.5); WBC 7.1 k/uL (3.8-10.6)
[2021-10-26 17:39] LABS: Lactic Acid, Venous 1.8 mmol/L (0.7-2.0)
[2021-10-26 17:40] LABS: ALT 23 U/L (4-49); AST 45 U/L (17-59); African American GFR (CKD) 67 (>60 ml/min/1.73 sqM); Alcohol <10 mg/dL; Alkaline Phosphatase 75 U/L (38-126); Anion Gap 10 mmol/L; Blood Urea Nitrogen 13 mg/dL (9-20); Carbon Dioxide 23 mmol/L (22-30); Chloride 105 mmol/L (98-107); Glucose 104 mg/dL (74-99); Magnesium 1.6 mg/dL (1.6-2.3); Non-African American GFR(CKD) 58 (>60 ml/min/1.73 sqM); Potassium 3.9 mmol/L (3.5-5.1); Sodium 138 mmol/L (137-145); Total Bilirubin 9.5 mg/dL (0.2-1.3); Total Protein 7.9 g/dL (6.3-8.2)
[2021-10-26 17:41] LABS: INR 1.5 (<1.2); Prothrombin Time 15.5 sec (9.0-12.0)
--- NOTE | 2021-10-26 17:47 | ED ---
General Adult HPI - General Chief complaint: Weakness Stated complaint: AMS Time Seen by Provider: 10/26/21 16:53 Source: patient, EMS, RN notes reviewed, old records reviewed Mode of arrival: EMS Limitations: no limitations - History of Present Illness Initial comments: 66-year-old male presenting from home with increased generalized weakness, confusion, and bilateral lower extremity erythema and drainage. Patient states he was recently diagnosed with liver failure secondary to alcohol abuse. He states he has not had an alcohol beverage in the past several weeks. He denies fever. He denies chest pain or abdominal pain. - Related Data Home Medications Medication Instructions Recorded Confirmed Gabapentin [Neurontin] 300 mg PO TID PRN 01/28/19 10/26/21 Albuterol Sulfate [Proair Hfa] 2 puff INHALATION RT-Q6H PRN 04/05/21 10/26/21 Meloxicam [Mobic] 15 mg PO DAILY 04/05/21 10/26/21 Montelukast [Singulair] 10 mg PO DAILY 04/05/21 10/26/21 Ergocalciferol (Vitamin D2) 1,250 mcg PO Q7D 09/29/21 10/26/21 [Drisdol (50,000 Iu)] Potassium Chloride ER [K-Dur 10] 10 meq PO BID 09/29/21 10/26/21 Zolpidem [Ambien] 10 mg PO HS PRN 09/29/21 10/26/21 Metoprolol Tartrate [Lopressor] 50 mg PO BID 10/26/21 10/26/21 Omeprazole [PriLOSEC] 20 mg PO DAILY 10/26/21 10/26/21 Spironolactone 50 mg PO DAILY 10/26/21 10/26/21 oxyCODONE-APAP 10-325MG [Percocet 1 tab PO Q4H PRN 10/26/21 10/26/21 10-325 mg] polyethylene glycoL 3350 [Clearlax] 17 gm PO DAILY PRN 10/26/21 10/26/21 Previous Rx's Medication Instructions Recorded Furosemide [Lasix] 40 mg PO BID #60 tab 04/09/21 Magnesium Oxide [Mag-Ox] 400 mg PO BID #30 tab 04/09/21 Allergies Allergy/AdvReac Type Severity Reaction Status Date / Time No Known Allergies Allergy Verified 10/26/21 17:58 Review of Systems ROS Statement: Those systems with pertinent positive or pertinent negative responses have been documented in the HPI. ROS Other: All systems not noted in ROS Statement are negative. Past Medical History Past Medical History: Hypertension Additional Past Medical History / Comment(s): Glasses, loose and chipped teeth, Diverticulitis, Gout, Polyps, Back pain, Arthritis, lung abcess 03/06/15 Pt has been seeing physician in [place] for leak in sleeve, venous insufficiency in Left leg, RIght hip has spur, gallstones, History of Any Multi-Drug Resistant Organisms: None Reported Past Surgical History: Bariatric Surgery, Orthopedic Surgery, Tonsillectomy Additional Past Surgical History / Comment(s): Right and Left ACL, polyps removed, sleeve gastrectomy August 2013, Gastric leak September 2014, March 2015 Gastric Bypass performed by ([facility] [place] Past Anesthesia/Blood Transfusion Reactions: No Reported Reaction Past Psychological History: No Psychological Hx Reported Smoking Status: Current some day smoker Past Alcohol Use History: Daily Past Drug Use History: None Reported General Exam Limitations: no limitations General appearance: alert Head exam: Present: atraumatic, normocephalic Eye exam: Present: PERRL, scleral icterus ENT exam: Present: mucous membranes dry Neck exam: Present: normal inspection. Absent: tenderness, meningismus Respiratory exam: Present: normal lung sounds bilaterally, decreased breath sounds. Absent: respiratory distress, wheezes Cardiovascular Exam: Present: regular rate, normal rhythm GI/Abdominal exam: Present: distended. Absent: tenderness, guarding Extremities exam: Present: pedal edema, other (Significant bilateral edema, drainage and erythema.) Neurological exam: Present: alert, oriented X3 (Slow to respond) Course Vital Signs 10/26/21 16:56 Temperature 98.3 F Pulse Rate 90 Respiratory 16 Rate Blood Pressure 115/77 O2 Sat by Pulse 100 Oximetry EKG Findings - EKG Comments: EKG Findings:: EKG: Sinus rhythm rate of 68 VA interval 148, QRS duration 100, QTC [address] segment elevation. Medical Decision Making - Medical Decision Making 66-year-old male presenting with increased lethargy and confusion. Patient has recent diagnosis of liver failure. He states he has not had a drink in the past 3 weeks. Denies fever. Denies pain complaint. He is alert and oriented but slow to respond. Nonfocal exam. He has significant bilateral lower extremity edema and cellulitis with purulent drainage. He has normal white blood cell count, he is anemic. Normal lactic acid. - Lab Data Result diagrams: 10/26/21 17:13 10/26/21 17:13 Lab Results 10/26/21 10/26/21 10/26/21 Range/Units 17:13 17:13 17:13 WBC 7.1 (3.8-10.6) k/uL RBC 2.32 L (4.30-5.90) m/uL Hgb 9.0 L D (13.0-17.5) gm/dL Hct 27.6 L (39.0-53.0) % MCV 118.9 H (80.0-100.0) fL MCH 38.7 H (25.0-35.0) pg MCHC 32.6 (31.0-37.0) g/dL RDW 13.8 (11.5-15.5) % Plt Count 170 (150-450) k/uL MPV 7.8 Neutrophils % 67 % Lymphocytes % 18 % Monocytes % 8 % Eosinophils % 3 % Basophils % 1 % Neutrophils # 4.7 (1.3-7.7) k/uL Lymphocytes # 1.3 (1.0-4.8) k/uL Monocytes # 0.6 (0-1.0) k/uL Eosinophils # 0.2 (0-0.7) k/uL Basophils # 0.1 (0-0.2) k/uL Manual Slide Review Performed Polychromasia Present Hypochromasia Moderate Macrocytosis Marked A Rouleaux Present PT (9.0-12.0) sec INR (<1.2) APTT (22.0-30.0) sec Sodium 138 (137-145) mmol/L Potassium 3.9 (3.5-5.1) mmol/L Chloride 105 (98-107) mmol/L Carbon Dioxide 23 (22-30) mmol/L Anion Gap 10 mmol/L BUN 13 (9-20) mg/dL Creatinine 1.29 H (0.66-1.25) mg/dL Est GFR (CKD-EPI)AfAm 67 (>60 ml/min/1.73 sqM) Est GFR (CKD-EPI)NonAf 58 (>60 ml/min/1.73 sqM) Glucose 104 H (74-99) mg/dL Plasma Lactic Acid Dave 1.8 (0.7-2.0) mmol/L Calcium 9.0 (8.4-10.2) mg/dL Magnesium 1.6 (1.6-2.3) mg/dL Total Bilirubin 9.5 H (0.2-1.3) mg/dL AST 45 (17-59) U/L ALT 23 (4-49) U/L Alkaline Phosphatase 75 (38-126) U/L Ammonia 35 H (<30) umol/L Troponin I (0.000-0.034) ng/mL Total Protein 7.9 (6.3-8.2) g/dL Albumin 3.0 L (3.5-5.0) g/dL Serum Alcohol <10 mg/dL 10/26/21 10/26/21 Range/Units 17:13 17:13 WBC (3.8-10.6) k/uL RBC (4.30-5.90) m/uL Hgb (13.0-17.5) gm/dL Hct (39.0-53.0) % MCV (80.0-100.0) fL MCH (25.0-35.0) pg MCHC (31.0-37.0) g/dL RDW (11.5-15.5) % Plt Count (150-450) k/uL MPV Neutrophils % % Lymphocytes % % Monocytes % % Eosinophils % % Basophils % % Neutrophils # (1.3-7.7) k/uL Lymphocytes # (1.0-4.8) k/uL Monocytes # (0-1.0) k/uL Eosinophils # (0-0.7) k/uL Basophils # (0-0.2) k/uL Manual Slide Review Polychromasia Hypochromasia Macrocytosis Rouleaux PT 15.5 H (9.0-12.0) sec INR 1.5 H (<1.2) APTT 28.0 (22.0-30.0) sec Sodium (137-145) mmol/L Potassium (3.5-5.1) mmol/L Chloride (98-107) mmol/L Carbon Dioxide (22-30) mmol/L Anion Gap mmol/L BUN (9-20) mg/dL Creatinine (0.66-1.25) mg/dL Est GFR (CKD-EPI)AfAm (>60 ml/min/1.73 sqM) Est GFR (CKD-EPI)NonAf (>60 ml/min/1.73 sqM) Glucose (74-99) mg/dL Plasma Lactic Acid Dave (0.7-2.0) mmol/L Calcium (8.4-10.2) mg/dL Magnesium (1.6-2.3) mg/dL Total Bilirubin (0.2-1.3) mg/dL AST (17-59) U/L ALT (4-49) U/L Alkaline Phosphatase (38-126) U/L Ammonia (<30) umol/L Troponin I <0.012 (0.000-0.034) ng/mL Total Protein (6.3-8.2) g/dL Albumin (3.5-5.0) g/dL Serum Alcohol mg/dL Disposition Clinical Impression: History of cirrhosis, Anasarca, Hyperbilirubinemia, Bilateral lower leg cellulitis Disposition: ADMITTED IP TO THIS HOSP Condition: Stable Is patient prescribed a controlled substance at d/c from ED?: No Referrals: Edison Reyes MD [Primary Care Provider] - 1-2 days Time of Disposition: 19:05
[2021-10-26] MEDS ORDERED: cefTRIAXone IN SWFI 1,000 MG/10 ML SYRINGE IVP STA (18:10)
[2021-10-26 18:20] LABS: Polychromasia Present; Rouleaux Present
[2021-10-26] MEDS ORDERED: NALOXONE 0.4 MG/ML 1 ML VIAL IV PRN (19:01)
[2021-10-26] MEDS ORDERED: VANCOMYCIN IV PER PHARMACY 1 EACH MISC MISCELLANE PRN (19:03)
[2021-10-26] MEDS ORDERED: VANCOMYCIN 1,750 MG in SODIUM CHLORIDE 0.9% 500 ML 500 ML IVPB STA (19:06)
[2021-10-27] MEDS: SODIUM CHLORIDE 0.9% 1,000 ML IV SCH ×2 (00:45→00:46)
[2021-10-27 01:52] LABS: Appearance,Urine Clear (Clear); Bilirubin,Urine Negative (Negative); Blood,Urine Negative (Negative); Color,Urine Yellow; Glucose,Urine (UA) Negative (Negative); Ketones,Urine Negative (Negative); Leukocyte Esterase,Urine Negative (Negative); Nitrite,Urine Negative (Negative); Protein,Urine Negative (Negative); Specific Gravity,Urine 1.014 (1.001-1.035); Urobilinogen,Urine >12.0 mg/dL (<2.0)
[2021-10-27] MEDS: VANCOMYCIN 1,750 MG in SODIUM CHLORIDE 0.9% 500 ML 500 ML IVPB SCH (11:52)
[2021-10-27] MEDS ORDERED: polyethylene glycoL 3350 17 GM POWD.PACK PO PRN (13:24)
[2021-10-27] MEDS ORDERED: ALBUTEROL NEBULIZED 2.5 MG/3 ML INHALATION PRN (13:24)
[2021-10-27] MEDS: LACTULOSE 20 GM/30 ML CUP PO SCH ×2 (14:10→22:15)
[2021-10-27] MEDS: oxyCODONE-APAP 10-325MG 1 EACH TAB PO PRN ×2 (14:10→22:13)
[2021-10-27] MEDS: FUROSEMIDE 40 MG TAB PO SCH (14:10)
[2021-10-27] MEDS: POTASSIUM CHLORIDE ER 10 MEQ TAB.ER.PRT PO SCH (22:13)
[2021-10-27] MEDS: MAGNESIUM OXIDE 400 MG TAB PO SCH (22:13)
[2021-10-27] MEDS: METOPROLOL TARTRATE 50 MG TAB PO SCH (22:22)
--- NOTE | 2021-10-27 22:58 | P.CONS ---
History of Present Illness - Reason for Consult Consult date: 10/27/21 Leg cellulitis Requesting physician: Simon Tomlinson - Chief Complaint Left leg pain and swelling and drainage x few days - History of Present Illness Patient is a 66-year-old -[place] male with a past medical history significant for hypertension history of diverticulitis about venous sufficiency left leg apparently had recently did have a drainage of the left leg abscess at the [facility] however the patient not sure about the cultures and the antibiotic for the patient was treated with patient is presenting to [facility] ER yesterday afternoon for evaluation of increased generalized weakness confusion and increasing bilateral lower extremity swelling along with some purulent drainage from the left leg patient be complaining of some pain to the left leg tomorrow with a leaking at times sharp 5-6 out of 10 no radiation on arrival to the ER the patient was afebrile and no fever have been recorded subsequently patient did have normal white count creatinine was mildly elevated liver enzymes are normal urine has been negative patient did have blood cultures obtained which are currently pending cultures were obtained from the left leg drainage site patient is currently being treated with the vancomycin infectious disease was consulted for further management of antibiotic therapy Review of Systems Positive point has been mentioned in the HPI rest of the systems are negative Past Medical History Past Medical History: Hypertension Additional Past Medical History / Comment(s): Glasses, loose and chipped teeth, Diverticulitis, Gout, Polyps, Back pain, Arthritis, lung abcess 03/06/15 Pt has been seeing physician in [place] for leak in sleeve, venous insufficiency in Left leg, RIght hip has spur, gallstones, History of Any Multi-Drug Resistant Organisms: None Reported Past Surgical History: Bariatric Surgery, Orthopedic Surgery, Tonsillectomy Additional Past Surgical History / Comment(s): Right and Left ACL, polyps removed, sleeve gastrectomy August 2013, Gastric leak September 2014, March 2015 Gastric Bypass performed by ([facility] [place]) Past Anesthesia/Blood Transfusion Reactions: No Reported Reaction Past Psychological History: No Psychological Hx Reported Additional Psychological History / Comment(s): Previous depression. Smoking Status: Current some day smoker Past Alcohol Use History: Daily Additional Past Alcohol Use History / Comment(s): "3-4 glasses of wine daily and one pint of [place] about 4 nights/week. Mixes it with [place]s Lemonade or Fruit Punch as well." Cigars a few times a week. Past Drug Use History: None Reported Medications and Allergies Home Medications Medication Instructions Recorded Confirmed Type Gabapentin [Neurontin] 300 mg PO TID PRN 01/28/19 10/26/21 History Albuterol Sulfate [Proair Hfa] 2 puff INHALATION RT-Q6H PRN 04/05/21 10/26/21 History Meloxicam [Mobic] 15 mg PO DAILY 04/05/21 10/26/21 History Montelukast [Singulair] 10 mg PO DAILY 04/05/21 10/26/21 History Furosemide [Lasix] 40 mg PO BID #60 tab 04/09/21 10/26/21 Rx Magnesium Oxide [Mag-Ox] 400 mg PO BID #30 tab 04/09/21 10/26/21 Rx Ergocalciferol (Vitamin D2) 1,250 mcg PO Q7D 09/29/21 10/26/21 History [Drisdol (50,000 Iu)] Potassium Chloride ER [K-Dur 10] 10 meq PO BID 09/29/21 10/26/21 History Zolpidem [Ambien] 10 mg PO HS PRN 09/29/21 10/26/21 History Omeprazole [PriLOSEC] 20 mg PO DAILY 10/26/21 10/26/21 History Spironolactone 50 mg PO DAILY 10/26/21 10/26/21 History oxyCODONE-APAP 10-325MG [Percocet 1 tab PO Q4H PRN 10/26/21 10/26/21 History 10-325 mg] polyethylene glycoL 3350 [Clearlax] 17 gm PO DAILY PRN 10/26/21 10/26/21 History Metoprolol Tartrate [Lopressor] 25 mg PO BID #0 11/02/21 10/26/21 Rx Allergies Allergy/AdvReac Type Severity Reaction Status Date / Time No Known Allergies Allergy Verified 10/26/21 17:58 Physical Exam Vitals: Vital Signs Temp Pulse Pulse Resp BP BP Pulse Ox 10/27/21 08:00 98.2 F 101 H 16 97/56 96 10/27/21 02:53 97.6 F 94 16 123/76 97 10/26/21 22:30 98.2 F 73 17 117/78 96 10/26/21 21:04 78 15 123/71 98 10/26/21 20:17 79 15 127/68 98 10/26/21 20:00 73 17 10/26/21 19:20 98.2 F 73 17 117/78 96 10/26/21 16:56 98.3 F 90 16 115/77 100 Intake and Output 10/27/21 10/27/21 10/27/21 06:59 14:59 22:59 Other: Voiding Method External Catheter # Voids 2 GENERAL DESCRIPTION: Middle-aged male lying in bed, no distress. No tachypnea or accessory muscle of respiration use. HEENT: Shows Pallor , no scleral icterus. Oral mucous membrane is dry. No pharyngeal erythema or thrush NECK: Trachea central, no thyromegaly. LUNGS: Unlabored breathing. Decreased breath sound at the base. No wheeze or crackle. HEART: S1, S2, regular rate and rhythm. No loud murmur ABDOMEN: Soft, no tenderness , guarding or rigidity, no organomegaly EXTREMITIES: Diffuse swelling to bilateral lower extremity and it has some purulent drainage from the left leg wound which was cultured. SKIN: No rash, no masses palpable. NEUROLOGICAL: The patient is awake, alert, oriented x3, mood and affect normal. Results CBC & Chem 7: 11/02/21 11:48 11/03/21 05:38 Labs: Abnormal Lab Results - Last 24 Hours (Table) 10/26/21 10/26/21 10/26/21 Range/Units 17:13 17:13 17:13 RBC 2.32 L (4.30-5.90) m/uL Hgb 9.0 L D (13.0-17.5) gm/dL Hct 27.6 L (39.0-53.0) % MCV 118.9 H (80.0-100.0) fL MCH 38.7 H (25.0-35.0) pg Macrocytosis Marked A PT (9.0-12.0) sec INR (<1.2) Creatinine 1.29 H (0.66-1.25) mg/dL Glucose 104 H (74-99) mg/dL Total Bilirubin 9.5 H (0.2-1.3) mg/dL Ammonia 35 H (<30) umol/L Albumin 3.0 L (3.5-5.0) g/dL 10/26/21 Range/Units 17:13 RBC (4.30-5.90) m/uL Hgb (13.0-17.5) gm/dL Hct (39.0-53.0) % MCV (80.0-100.0) fL MCH (25.0-35.0) pg Macrocytosis PT 15.5 H (9.0-12.0) sec INR 1.5 H (<1.2) Creatinine (0.66-1.25) mg/dL Glucose (74-99) mg/dL Total Bilirubin (0.2-1.3) mg/dL Ammonia (<30) umol/L Albumin (3.5-5.0) g/dL Assessment and Plan (1) Bilateral lower leg cellulitis Current Visit: Yes Status: Acute Code(s): L03.116 - CELLULITIS OF LEFT LOWER LIMB; L03.115 - CELLULITIS OF RIGHT LOWER LIMB SNOMED Code(s): 619349816 Plan: 1patient with acute left lower extremity cellulitis and wound which is draining some purulent drainage concerning for underlying abscess likely from gram- positive skin [place] with recent admission to an outside facility and apparently the patient had drainage of an abscess however the patient not sure about the culture on the antibiotic he has been treated with. 2local culture as well as blood culture has been obtained and those will be followed. 3we will benefit from a CT to make sure evidence of any fluid collection that may need to be drained. 4vancomycin pharmacy to dose target trough of 15 while watching kidney function and vancomycin trough closely. We will follow on clinical condition and cultures to further adjust medication if needed Thank you for this consultation will follow this patient along with you Time with Patient: Greater than 30
--- NOTE | 2021-10-28 00:18 | HP ---
HISTORY AND PHYSICAL CHIEF COMPLAINTS: Bilateral leg ulcers. HISTORY OF PRESENT ILLNESS: This 66-year-old gentleman with a past medical history of liver failure, alcoholic issues, was admitted with complaints of confusion as well as bilateral cellulitis, left more than the right with left leg ulceration. The patient not having alcoholic beverage for the last several weeks. The patient is rather confused and most history is taken from my discussion with staff and also review of the chart at this time. The patient is admitted for further evaluation and treatment. There is no history of any fever, rigors, or chills. PAST MEDICAL HISTORY: Reviewed, include cirrhosis of liver, bariatric surgery. The rest of the history reviewed. HOME MEDICATIONS: Reviewed, include Celexa. The rest of the medications reviewed. ALLERGIES: None. Family history, social history, and review of systems could not be taken, the patient is mildly confused. PHYSICAL EXAMINATION: VITAL SIGNS: Pulse is 101, blood pressure 97/60, respirations 16. HEENT: Conjunctivae normal. NECK: No JVD. CARDIOVASCULAR: S1 and S2, muffled. RESPIRATION: Breath sounds diminished at the bases. No rhonchi. No crackles. ABDOMEN: Soft, mild diffuse distention. LEGS: Bilateral leg edema, right leg cellulitis, and left leg ulcers also present. NERVOUS SYSTEM: No focal deficits. LABS: WBC n_, hemoglobin is 9. Other labs noted. ASSESSMENT: 1. Bilateral leg cellulitis with left leg ulcer. 2. Acute on chronic hepatic failure. 3. Cirrhosis of liver. 4. Hypertension. 5. Multiple medical issues. RECOMMENDATIONS AND DISCUSSION: This 66-year-old gentleman presented with multiple complex medical issues, we will monitor the patient closely. We will initiate broad-spectrum IV antibiotics. The patient is started on vancomycin. Infectious disease evaluation. Follow cultures. Symptomatic treatment. Lactulose. Guarded prognosis because of multiple complex medical issues. Further recommendations to follow. See orders for details. MMODL / IJN: [id number] / MTDD
[2021-10-28] MEDS: VANCOMYCIN 1,750 MG in SODIUM CHLORIDE 0.9% 500 ML 500 ML IVPB SCH ×2 (03:58→20:23)
[2021-10-28] MEDS: oxyCODONE-APAP 10-325MG 1 EACH TAB PO PRN ×3 (04:02→20:55)
[2021-10-28 08:27] LABS: ALT 24 U/L (4-49); AST 53 U/L (17-59); African American GFR (CKD) 71 (>60 ml/min/1.73 sqM); Albumin 2.8 g/dL (3.5-5.0); Albumin/Globulin Ratio 0.6; Alkaline Phosphatase 76 U/L (38-126); Anion Gap 9 mmol/L; Blood Urea Nitrogen 12 mg/dL (9-20); Calcium 8.3 mg/dL (8.4-10.2); Carbon Dioxide 20 mmol/L (22-30); Chloride 107 mmol/L (98-107); Glucose 92 mg/dL (74-99); Non-African American GFR(CKD) 61 (>60 ml/min/1.73 sqM); Potassium 3.6 mmol/L (3.5-5.1); Sodium 136 mmol/L (137-145); Total Protein 7.8 g/dL (6.3-8.2)
[2021-10-28] MEDS: MAGNESIUM OXIDE 400 MG TAB PO SCH ×2 (09:10→20:23)
[2021-10-28] MEDS: POTASSIUM CHLORIDE ER 10 MEQ TAB.ER.PRT PO SCH ×2 (09:10→20:23)
[2021-10-28] MEDS: LACTULOSE 20 GM/30 ML CUP PO SCH (09:10)
[2021-10-28] MEDS: MONTELUKAST 10 MG TAB PO SCH (09:10)
[2021-10-28] MEDS: ERGOCALCIFEROL 1,250 MCG (50,000 IU) CAPSULE PO SCH (09:10)
[2021-10-28] MEDS: FUROSEMIDE 40 MG TAB PO SCH ×2 (09:10→16:31)
[2021-10-28] MEDS: SPIRONOLACTONE 25 MG TAB PO SCH (09:11)
[2021-10-28] MEDS: METOPROLOL TARTRATE 50 MG TAB PO SCH ×2 (09:11→20:23)
[2021-10-28 10:50] LABS: HCT 26.7 % (39.6-50.0); HGB 8.8 g/dL (13.0-17.0); MCH 37.8 pg (27.0-32.0); MCV 114.6 fL (80.0-97.0); Mean Platelet Volume 9.7 fL (9.5-12.2); NRBC Per 100 WBC 0 /100 WBCS (0.0-0.0); Platelet Count 179 X 10*3/uL (140-440); RBC 2.33 X 10*6/uL (4.40-5.60); WBC 9.53 X 10*3/uL (4.50-10.00)
[2021-10-28 14:06] LABS: Basophils # (A) 0.15 X 10*3/uL (0.00-0.10); Basophils % (A) 1.6 %; Eosinophils # (A) 0.67 X 10*3/uL (0.04-0.35); Immature Grans, Automated 0.4 %; Lymphocytes % (A) 33.6 %; Monocytes % (A) 9.4 %; Neutrophils # (A) 4.57 X 10*3/uL (1.80-7.70)
[2021-10-28 14:07] LABS: Macrocytosis (M) 2+
--- NOTE | 2021-10-28 15:25 | CT ---
EXAMINATION TYPE: CT lower leg LT wo con DATE OF EXAM: 10/28/2021 COMPARISON: None HISTORY: Abscess lower LT leg by ankle CT DLP: 228.7 mGycm Automated exposure control for dose reduction was used. Contrast: None Technique: Axial images 3 mm thick sections. Reconstructed images in the coronal and sagittal planes. FINDINGS: Diffuse soft tissue swelling and increased density diffusely through the lower extremity. Increased d ensities along the anterior right lower extremity. Well-defined walled fluid collection however is no t evidence suggest underlying abscess. The reconstructed images performed through the osseous structures are reviewed unremarkable. IMPRESSION: 1. DIFFUSE SOFT TISSUE SWELLING IN THE SUBCUTANEOUS AND DEEPER TISSUES. UNDERLYING ABSCESS FORMATION HOWEVER IS NOT IDENTIFIED. FOLLOW-UP CAN BE PERFORMED CLINICALLY INDICATED.
[2021-10-28] MEDS: SODIUM CHLORIDE 0.9% 1,000 ML IV SCH (20:23)
[2021-10-28] MEDS: METOPROLOL TARTRATE 25 MG TAB PO SCH (20:56)
[2021-10-29] MEDS: oxyCODONE-APAP 10-325MG 1 EACH TAB PO PRN ×3 (02:46→17:35)
--- NOTE | 2021-10-29 05:22 | PN ---
PROGRESS NOTE SUBJECTIVE: This 66-year-old gentleman admitted with bilateral leg cellulitis, left more than right, also hepatic encephalopathy also, the patient closely monitored. The patient is on broad-spectrum IV antibiotics. Cultures are pending. Infectious Disease is following the patient closely. PAST MEDICAL HISTORY: Reviewed. REVIEW OF SYSTEMS: A 14-point review of systems is negative except as mentioned earlier. CURRENT MEDICATIONS: Reviewed include, 1. Vitamin D2. 2. Vancomycin. Dose and rest of medications reviewed. PHYSICAL EXAMINATION: VITAL SIGNS: Pulse is 74, blood pressure 120/70, respirations 16. HEENT: Conjunctivae normal. NECK: No JVD. CARDIOVASCULAR: S1 and S2. RESPIRATION: Breath sounds diminished at the bases. ABDOMEN: Soft and distended. LEGS: Bilateral leg cellulitis, left leg ulcer. NERVOUS SYSTEM: No focal deficits. Asterixis present. LABS: Hemoglobin 8.8. The rest of the labs reviewed. ASSESSMENT: 1. Bilateral leg cellulitis with left leg ulcer. 2. Acute on chronic hepatic failure. 3. Cirrhosis of liver. 4. Hypertension. 5. Multiple medical issues. RECOMMENDATIONS AND DISCUSSION: I recommend to continue current management and symptomatic treatment. Otherwise, we will check ammonia, lactulose to have 2-3 bowel movements and to avoid diarrhea. Otherwise, we will continue to follow with Infectious Disease. Guarded prognosis. Further recommendations to follow. MMODL / IJN: [id number] /
[2021-10-29] MEDS: FUROSEMIDE 40 MG TAB PO SCH ×2 (08:06→17:32)
[2021-10-29] MEDS: SPIRONOLACTONE 25 MG TAB PO SCH (08:07)
[2021-10-29] MEDS: POTASSIUM CHLORIDE ER 10 MEQ TAB.ER.PRT PO SCH ×2 (08:08→21:37)
[2021-10-29] MEDS: METOPROLOL TARTRATE 25 MG TAB PO SCH ×2 (08:08→21:37)
[2021-10-29] MEDS: MONTELUKAST 10 MG TAB PO SCH (08:08)
[2021-10-29] MEDS: MAGNESIUM OXIDE 400 MG TAB PO SCH ×2 (08:08→21:37)
[2021-10-29] MEDS: LACTULOSE 20 GM/30 ML CUP PO SCH (08:08)
--- NOTE | 2021-10-29 08:19 | P.PN ---
Subjective Progress Note Date: 10/28/21 Principal diagnosis: Left leg abscess and cellulitis Patient is a 66-year-old -[place] male with multiple comorbidities presented to the hospital with left lower extremity redness any purulent drainage has been diagnosed with an abscess and cellulitis. On today's evaluation that is 10/28/2021, the patient denies having any fever or any chills, the left lower extremity pain and discomfort has slightly decreased to have some drainage on the dressing denies any chest pain shortness of breath or cough and no diarrhea Objective - Vital Signs Vital signs: Vital Signs Temp 98 F 10/28/21 08:24 Pulse 74 10/28/21 08:24 Resp 16 10/28/21 08:24 BP 122/78 10/28/21 08:24 Pulse Ox 93 L 10/28/21 08:24 FiO2 Intake & Output 10/27/21 10/28/21 10/28/21 18:59 06:59 18:59 Output Total 225 Balance -225 Output: Urine 225 Other: Voiding Method External Catheter Toilet Toilet Urinal Urinal # Voids 4 2 # Bowel Movements 1 - Exam GENERAL DESCRIPTION: A middle-age male lying in bed in no distress RESPIRATORY SYSTEM: Unlabored breathing , decreased breath sounds at bases HEART: S1 S2 regular rate and rhythm , ABDOMEN: Soft , no tenderness EXTREMITIES: Left leg wound is currently dressed with drainage of the dressing - Labs CBC & Chem 7: 10/28/21 07:34 10/28/21 07:34 Labs: Abnormal Lab Results - Last 24 Hours (Table) 10/28/21 10/28/21 10/28/21 Range/Units 07:34 07:34 07:34 RBC 2.33 L (4.40-5.60) X 10*6/uL Hgb 8.8 L (13.0-17.0) g/dL Hct 26.7 L (39.6-50.0) % MCV 114.6 H (80.0-97.0) fL MCH 37.8 H (27.0-32.0) pg Sodium 136 L (137-145) mmol/L Carbon Dioxide 20 L (22-30) mmol/L Calcium 8.3 L (8.4-10.2) mg/dL Total Bilirubin 8.0 H (0.2-1.3) mg/dL Ammonia 57 H (<30) umol/L Albumin 2.8 L (3.5-5.0) g/dL Microbiology - Last 24 Hours (Table) 10/27/21 16:46 Gram Stain - Preliminary Leg - Left Wound Culture - Preliminary 10/27/21 16:46 Anaerobic Culture - Preliminary Leg - Left 10/26/21 17:15 Blood Culture - Preliminary Blood No Growth after 24 hours 10/26/21 17:00 Blood Culture - Preliminary Blood No Growth after 24 hours Assessment and Plan (1) Bilateral lower leg cellulitis Current Visit: Yes Status: Acute Code(s): L03.116 - CELLULITIS OF LEFT LOWER LIMB; L03.115 - CELLULITIS OF RIGHT LOWER LIMB SNOMED Code(s): 417675129 Plan: 1patient with acute left lower extremity cellulitis and wound which is draining some purulent drainage concerning for underlying abscess likely from gram- positive skin [place] with recent admission to an outside facility and apparently the patient had drainage of an abscess however the patient not sure about the culture on the antibiotic he has been treated with. 2local culture as well as blood culture has been obtained which are currently pending 3we will obtain CT of the left leg to make sure evidence of any fluid collection that may need to be drained. 4patient to continue with vancomycin pharmacy to dose target trough of 15 while watching kidney function and vancomycin trough closely. Time with Patient: Less than 30
[2021-10-29] MEDS ORDERED: CEFEPIME 2 GM in SODIUM CHLORIDE 0.9% 100 ML IVPB SCH (08:30)
[2021-10-29] MEDS ORDERED: VANCOMYCIN TROUGH DUE 1 EACH MISC MISCELLANE ONE (11:00)
[2021-10-29 11:19] LABS: ALT 26 U/L (4-49); AST 55 U/L (17-59); African American GFR (CKD) 51 (>60 ml/min/1.73 sqM); Albumin 2.8 g/dL (3.5-5.0); Albumin/Globulin Ratio 0.6; Alkaline Phosphatase 82 U/L (38-126); Anion Gap 12 mmol/L; Blood Urea Nitrogen 13 mg/dL (9-20); Calcium 8.6 mg/dL (8.4-10.2); Carbon Dioxide 20 mmol/L (22-30); Chloride 106 mmol/L (98-107); Globulin 4.6 g/dL; Glucose 100 mg/dL (74-99); Non-African American GFR(CKD) 44 (>60 ml/min/1.73 sqM); Potassium 3.8 mmol/L (3.5-5.1); Sodium 138 mmol/L (137-145); Total Bilirubin 6.4 mg/dL (0.2-1.3); Total Protein 7.4 g/dL (6.3-8.2)
[2021-10-29 11:57] LABS: Basophils # (A) 0.1 k/uL (0-0.2); Basophils % (A) 2 %; Eosinophils # (A) 0.6 k/uL (0-0.7); Eosinophils % (A) 8 %; HCT 30.8 % (39.0-53.0); HGB 9.5 gm/dL (13.0-17.5); Hypochromasia Marked; Lymphocytes # (A) 1.2 k/uL (1.0-4.8); Lymphocytes % (A) 16 %; MCH 36.9 pg (25.0-35.0); MCHC 30.9 g/dL (31.0-37.0); MCV 119.7 fL (80.0-100.0); Macrocytosis Marked; Mean Platelet Volume 8.6; Monocytes # (A) 0.8 k/uL (0-1.0); Monocytes % (A) 10 %; Neutrophils # (A) 5.1 k/uL (1.3-7.7); Neutrophils % (A) 64 %; Platelet Count 170 k/uL (150-450); RBC 2.58 m/uL (4.30-5.90); RDW 13.2 % (11.5-15.5)
[2021-10-29] MEDS: CEFEPIME 2 GM in SODIUM CHLORIDE 0.9% 100 ML IVPB SCH (21:37)
[2021-10-29] MEDS: SODIUM CHLORIDE 0.9% 1,000 ML IV SCH (21:40)
[2021-10-30] MEDS: oxyCODONE-APAP 10-325MG 1 EACH TAB PO PRN ×4 (04:25→19:48)
--- NOTE | 2021-10-30 08:36 | PN ---
PROGRESS NOTE SUBJECTIVE: This is a 66-year-old gentleman, who was admitted with bilateral leg ulcers, also had acute hepatic failure. The patient is confused. Ammonia is elevated. The wound culture showed gram-negative bacilli. Final ID is pending at this time. A lower extremity CT scan was also done, which was personally reviewed by me showed diffuse soft tissue swelling with possibly no underlying abscess formation. No chest pain. No palpitation. PAST MEDICAL HISTORY: Reviewed. REVIEW OF SYSTEMS: A 14-point review of systems is negative except as mentioned earlier. CURRENT MEDICATIONS: Reviewed include lactulose, rest of medication also reviewed. PHYSICAL EXAMINATION: VITAL SIGNS: Pulse is 107, blood pressure 96/62, respiration 17. HEENT: Conjunctivae normal. NECK: No JVD. CARDIOVASCULAR: No murmurs. RESPIRATIONS: Breath sounds diminished at the bases. A few scattered rhonchi. ABDOMEN: Soft, nontender. NERVOUS SYSTEM: No focal deficits. LABS: WBC 8, hemoglobin 9.5, albumin is 2.8. ASSESSMENT: 1. Bilateral leg cellulitis with left leg ulcer. 2. Acute on chronic hepatic failure. 3. Cirrhosis of liver. 4. Hypertension. 5. Multiple medical issues. RECOMMENDATIONS AND DISCUSSION: I recommend to continue current management with antibiotics. Continue with current medications. Also recommend an orthopedic evaluation also. Guarded prognosis. Further recommendations to follow. MMODL / IJN: [id number] /
[2021-10-30 09:35] LABS: Basophils % (A) 1.3 %; Eosinophils # (A) 0.54 X 10*3/uL (0.04-0.35); Eosinophils % (A) 6.9 %; HCT 24.9 % (39.6-50.0); HGB 8.1 g/dL (13.0-17.0); Immature Grans, Automated 0.4 %; Lymphocytes # (A) 2.51 X 10*3/uL (0.90-5.00); MCH 37.2 pg (27.0-32.0); MCHC 32.5 g/dL (32.0-37.0); MCV 114.2 fL (80.0-97.0); Mean Platelet Volume 9.5 fL (9.5-12.2); Monocytes # (A) 1.08 X 10*3/uL (0.20-1.00); Monocytes % (A) 13.8 %; NRBC Per 100 WBC 0 /100 WBCS (0.0-0.0); Neutrophils # (A) 3.59 X 10*3/uL (1.80-7.70); Neutrophils % (A) 45.6 %; Platelet Count 146 X 10*3/uL (140-440); RBC 2.18 X 10*6/uL (4.40-5.60); RDW 13.9 % (11.5-14.5); WBC 7.85 X 10*3/uL (4.50-10.00)
[2021-10-30] MEDS: CEFEPIME 2 GM in SODIUM CHLORIDE 0.9% 100 ML IVPB SCH ×2 (09:52→22:59)
[2021-10-30] MEDS: SPIRONOLACTONE 25 MG TAB PO SCH (09:53)
[2021-10-30] MEDS: MAGNESIUM OXIDE 400 MG TAB PO SCH ×2 (09:53→21:22)
[2021-10-30] MEDS: METOPROLOL TARTRATE 25 MG TAB PO SCH ×2 (09:53→21:22)
[2021-10-30] MEDS: FUROSEMIDE 40 MG TAB PO SCH ×2 (09:54→15:40)
[2021-10-30] MEDS: POTASSIUM CHLORIDE ER 10 MEQ TAB.ER.PRT PO SCH ×2 (09:54→21:21)
[2021-10-30] MEDS: MONTELUKAST 10 MG TAB PO SCH (09:54)
[2021-10-30] MEDS: LACTULOSE 20 GM/30 ML CUP PO SCH (09:54)
[2021-10-30] MEDS ORDERED: VANCOMYCIN IV PER PHARMACY 1 EACH MISC MISCELLANE PRN (11:12)
[2021-10-30 11:34] LABS: African American GFR (CKD) 52.8 (60.0-200.0); Albumin 2.3 g/dL (3.8-4.9); Albumin/Globulin Ratio 0.58 (1.60-3.17); Anion Gap 7.8 mmol/L (10.00-18.00); BUN/Creat Ratio 8.67 Ratio (12.00-20.00); Blood Urea Nitrogen 13.7 mg/dL (9.0-27.0); Calcium 8.4 mg/dL (8.7-10.3); Carbon Dioxide 20.7 mmol/L (20.0-27.5); Non-African American GFR(CKD) 45.6 (60.0-200.0); Potassium 3.9 mmol/L (3.5-5.5); Total Bilirubin 4.7 mg/dL (0.30-1.20); Total Protein 6.3 g/dL (6.2-8.2)
[2021-10-30] MEDS: VANCOMYCIN 1,750 MG in SODIUM CHLORIDE 0.9% 500 ML 500 ML IVPB SCH (14:04)
--- NOTE | 2021-10-30 16:37 | P.PN ---
Subjective Progress Note Date: 10/29/21 Principal diagnosis: Left leg abscess and cellulitis Patient is a 66-year-old -Gren[place] male with multiple comorbidities presented to the hospital with left lower extremity redness any purulent drainage has been diagnosed with an abscess and cellulitis. On today's evaluation that is 10/29/2021, the patient remains to be afebrile, the left lower extremity pain and discomfort has slightly decreased in intensity the patient continue to have some drainage on the dressing denies any chest pain shortness of breath or cough and no diarrhea Objective - Vital Signs Vital signs: Vital Signs Temp 97.6 F 10/29/21 07:59 Pulse 107 H 10/29/21 07:59 Resp 16 10/29/21 07:59 BP 96/62 10/29/21 07:59 Pulse Ox 99 10/29/21 07:59 FiO2 Intake & Output 10/28/21 10/29/21 10/29/21 18:59 06:59 18:59 Other: Voiding Method Toilet Toilet Toilet Urinal Urinal Urinal # Voids 3 3 # Bowel Movements 3 1 - Exam GENERAL DESCRIPTION: A middle-age male lying in bed in no distress RESPIRATORY SYSTEM: Unlabored breathing , decreased breath sounds at bases HEART: S1 S2 regular rate and rhythm , ABDOMEN: Soft , no tenderness EXTREMITIES: Left leg wound is currently dressed with drainage of the dressing - Labs CBC & Chem 7: 10/30/21 06:41 10/30/21 06:41 Labs: Abnormal Lab Results - Last 24 Hours (Table) 10/28/21 10/29/21 10/29/21 Range/Units 07:34 10:42 10:42 RBC 2.58 L (4.30-5.90) m/uL Hgb 9.5 L (13.0-17.5) gm/dL Hct 30.8 L (39.0-53.0) % MCV 119.7 H (80.0-100.0) fL MCH 36.9 H (25.0-35.0) pg MCHC 30.9 L (31.0-37.0) g/dL Eosinophils # 0.67 H (0.04-0.35) X 10*3/uL Basophils # 0.15 H (0.00-0.10) X 10*3/uL Macrocytosis Marked A Carbon Dioxide (22-30) mmol/L Creatinine 1.68 H (0.66-1.25) mg/dL Glucose (74-99) mg/dL Total Bilirubin (0.2-1.3) mg/dL Ammonia (<30) umol/L Albumin (3.5-5.0) g/dL 10/29/21 10/29/21 Range/Units 10:42 10:42 RBC (4.30-5.90) m/uL Hgb (13.0-17.5) gm/dL Hct (39.0-53.0) % MCV (80.0-100.0) fL MCH (25.0-35.0) pg MCHC (31.0-37.0) g/dL Eosinophils # (0.04-0.35) X 10*3/uL Basophils # (0.00-0.10) X 10*3/uL Macrocytosis Carbon Dioxide 20 L (22-30) mmol/L Creatinine 1.63 H (0.66-1.25) mg/dL Glucose 100 H (74-99) mg/dL Total Bilirubin 6.4 H (0.2-1.3) mg/dL Ammonia 49 H (<30) umol/L Albumin 2.8 L (3.5-5.0) g/dL Microbiology - Last 24 Hours (Table) 10/27/21 16:46 Gram Stain - Preliminary Leg - Left Wound Culture - Preliminary Gram Neg Bacilli 10/26/21 17:00 Blood Culture - Preliminary Blood No Growth after 48 hours 10/26/21 17:15 Blood Culture - Preliminary Blood No Growth after 48 hours Assessment and Plan (1) Bilateral lower leg cellulitis Current Visit: Yes Status: Acute Code(s): L03.116 - CELLULITIS OF LEFT LOWER LIMB; L03.115 - CELLULITIS OF RIGHT LOWER LIMB SNOMED Code(s): 960638841 Plan: 1patient with acute left lower extremity cellulitis and wound which is draining some purulent drainage concerning for underlying abscess likely from gram- positive skin [place] with recent admission to an outside facility and apparently the patient had drainage of an abscess however the patient not sure about the culture on the antibiotic he has been treated with. 2 CT of the left leg was negative for any fluid collection 3local cultures are currently growing gram-negative we will discontinue v ancomycin and start the patient on cefepime 2 g every 8 hours Time with Patient: Less than 30
--- NOTE | 2021-10-30 16:38 | P.PN ---
Subjective Progress Note Date: 10/30/21 Principal diagnosis: Left leg abscess and cellulitis Patient is a 66-year-old -Lithuanian male with multiple comorbidities presented to the hospital with left lower extremity redness any purulent drainage has been diagnosed with an abscess and cellulitis. On today's evaluation that is 10/30/2021, the patient continues to be afebrile, the left lower extremity pain and drainage has decreased, the patient denies having any chest pain shortness of breath or cough no nausea no vomiting and no diarrhea Objective - Vital Signs Vital signs: Vital Signs Temp 98.6 F 10/30/21 08:00 Pulse 85 10/30/21 08:00 Resp 17 10/30/21 08:00 BP 111/71 10/30/21 08:00 Pulse Ox 99 10/30/21 08:11 FiO2 Intake & Output 10/29/21 10/30/21 10/30/21 18:59 06:59 18:59 Intake Total 1080 Output Total 355 Balance 1080 -355 Intake: Oral 1080 Output: Urine 355 Other: Voiding Method Toilet Toilet Toilet Urinal Urinal Urinal # Voids 3 - Exam GENERAL DESCRIPTION: A middle-age male lying in bed in no distress RESPIRATORY SYSTEM: Unlabored breathing , decreased breath sounds at bases HEART: S1 S2 regular rate and rhythm , ABDOMEN: Soft , no tenderness EXTREMITIES: Left leg wound is currently dressed with drainage of the dressing - Labs CBC & Chem 7: 10/30/21 06:41 10/30/21 06:41 Labs: Abnormal Lab Results - Last 24 Hours (Table) 10/29/21 10/29/21 10/29/21 Range/Units 10:42 10:42 10:42 RBC 2.58 L (4.30-5.90) m/uL Hgb 9.5 L (13.0-17.5) gm/dL Hct 30.8 L (39.0-53.0) % MCV 119.7 H (80.0-100.0) fL MCH 36.9 H (25.0-35.0) pg MCHC 30.9 L (31.0-37.0) g/dL Monocytes # (0.20-1.00) X 10*3/uL Eosinophils # (0.04-0.35) X 10*3/uL Macrocytosis Marked A Carbon Dioxide 20 L (22-30) mmol/L Creatinine 1.68 H 1.63 H (0.66-1.25) mg/dL Glucose 100 H (74-99) mg/dL Total Bilirubin 6.4 H (0.2-1.3) mg/dL Ammonia (<30) umol/L Albumin 2.8 L (3.5-5.0) g/dL 10/29/21 10/30/21 10/30/21 Range/Units 10:42 06:41 06:41 RBC 2.18 L (4.30-5.90) m/uL Hgb 8.1 L (13.0-17.5) gm/dL Hct 24.9 L (39.0-53.0) % MCV 114.2 H (80.0-100.0) fL MCH 37.2 H (25.0-35.0) pg MCHC (31.0-37.0) g/dL Monocytes # 1.08 H (0.20-1.00) X 10*3/uL Eosinophils # 0.54 H (0.04-0.35) X 10*3/uL Macrocytosis Carbon Dioxide (22-30) mmol/L Creatinine (0.66-1.25) mg/dL Glucose (74-99) mg/dL Total Bilirubin (0.2-1.3) mg/dL Ammonia 49 H 81 H (<30) umol/L Albumin (3.5-5.0) g/dL Microbiology - Last 24 Hours (Table) 10/27/21 16:46 Anaerobic Culture - Preliminary Leg - Left 10/27/21 16:46 Gram Stain - Final Leg - Left Wound Culture - Final Klebsiella pneumoniae Staphylococcus simulans 10/26/21 17:15 Blood Culture - Preliminary Blood No Growth after 72 hours 10/26/21 17:00 Blood Culture - Preliminary Blood No Growth after 72 hours Assessment and Plan (1) Bilateral lower leg cellulitis Current Visit: Yes Status: Acute Code(s): L03.116 - CELLULITIS OF LEFT LOWER LIMB; L03.115 - CELLULITIS OF RIGHT LOWER LIMB SNOMED Code(s): 046191802 Plan: 1patient with acute left lower extremity cellulitis and wound which is draining some purulent drainage concerning for underlying abscess likely from gram- positive skin [place] with recent admission to an outside facility and apparently the patient had drainage of an abscess however the patient not sure about the culture on the antibiotic he has been treated with. 2 CT of the left leg was negative for any fluid collection 3local cultures grew Klebsiella and Staphylococcus oxacillin resistant patient is covered with a cefepime we will add vancomycin to cover for the staphylococcus and monitor clinical course closely Time with Patient: Less than 30
--- NOTE | 2021-10-30 17:34 | P.CNOR ---
History of Present Illness - HPI Consult date: 10/30/21 History of present illness: This patient is a 66- year old male with a past medical history of liver disease that presented to [facility] emergency department on 10/26/21 with complaints of a left lower extremity wound. Patient states he was admitted to [facility] recently and an I&D was performed of the left lower extremity. He is unsure of what his follow-up instructions were or what antibiotics he was taking at that time. He presented to the emergency department as he was experiencing increased drainage from the left lower extremity wound. He also was experiencing increased pain. The patient was admitted under the care of internal medicine with a consult placed to infectious disease and orthopedic surgery. The patient is examined bedside this morning. He states his left lower leg pain has improved significantly since admission. He is able to ambulate with minimal pain. He states he otherwise feels well and denies fevers or chills. Vital signs stable. Past Medical History Past Medical History: Hypertension Additional Past Medical History / Comment(s): Glasses, loose and chipped teeth, Diverticulitis, Gout, Polyps, Back pain, Arthritis, lung abcess 03/06/15 Pt has been seeing physician in [place] for leak in sleeve, venous insufficiency in Left leg, RIght hip has spur, gallstones, History of Any Multi-Drug Resistant Organisms: None Reported Past Surgical History: Bariatric Surgery, Orthopedic Surgery, Tonsillectomy Additional Past Surgical History / Comment(s): Right and Left ACL, polyps removed, sleeve gastrectomy August 2013, Gastric leak September 2014, March 2015 Gastric Bypass performed by [place] [place] Past Anesthesia/Blood Transfusion Reactions: No Reported Reaction Past Psychological History: No Psychological Hx Reported Additional Psychological History / Comment(s): Previous depression. Smoking Status: Current some day smoker Past Alcohol Use History: Daily Additional Past Alcohol Use History / Comment(s): "3-4 glasses of wine daily and one pint of [place] about 4 nights/week. Mixes it with [place] Lemonade or Fruit Punch as well." Cigars a few times a week. Past Drug Use History: None Reported Medications and Allergies Home Medications Medication Instructions Recorded Confirmed Type Gabapentin [Neurontin] 300 mg PO TID PRN 01/28/19 10/26/21 History Albuterol Sulfate [Proair Hfa] 2 puff INHALATION RT-Q6H PRN 04/05/21 10/26/21 History Meloxicam [Mobic] 15 mg PO DAILY 04/05/21 10/26/21 History Montelukast [Singulair] 10 mg PO DAILY 04/05/21 10/26/21 History Furosemide [Lasix] 40 mg PO BID #60 tab 04/09/21 10/26/21 Rx Magnesium Oxide [Mag-Ox] 400 mg PO BID #30 tab 04/09/21 10/26/21 Rx Ergocalciferol (Vitamin D2) 1,250 mcg PO Q7D 09/29/21 10/26/21 History [Drisdol (50,000 Iu)] Potassium Chloride ER [K-Dur 10] 10 meq PO BID 09/29/21 10/26/21 History Zolpidem [Ambien] 10 mg PO HS PRN 09/29/21 10/26/21 History Metoprolol Tartrate [Lopressor] 50 mg PO BID 10/26/21 10/26/21 History Omeprazole [PriLOSEC] 20 mg PO DAILY 10/26/21 10/26/21 History Spironolactone 50 mg PO DAILY 10/26/21 10/26/21 History oxyCODONE-APAP 10-325MG [Percocet 1 tab PO Q4H PRN 10/26/21 10/26/21 History 10-325 mg] polyethylene glycoL 3350 [Clearlax] 17 gm PO DAILY PRN 10/26/21 10/26/21 History Allergies Allergy/AdvReac Type Severity Reaction Status Date / Time No Known Allergies Allergy Verified 10/26/21 17:58 Physical Examination Osteopathic Statement: *. No significant issues noted on an osteopathic structural exam other than those noted in the History and Physical/Consult. On examination, patient is lying in bed in no apparent distress. He is alert and oriented 3. His head appears normocephalic and atraumatic. His breathing appears nonlabored. A focused examination of the left lower leg is conducted. On inspection of the left lower leg, there is a small pinhole size wound at the anterior lower leg with active purulent drainage. There is minimal surrounding erythema. There is no pain with palpation of the left knee, ankle, foot. Calf is soft and nontender to palpation. Motor and sensory is intact of the left lower extremity. Left lower extremity is warm and well-perfused. Results CT left lower leg 10/27/21: Diffuse soft tissue swelling. Underlying abscess not identified. - Labs Labs: Abnormal Lab Results - Last 24 Hours (Table) 10/30/21 10/30/21 10/30/21 Range/Units 06:41 06:41 06:41 RBC 2.18 L (4.40-5.60) X 10*6/uL Hgb 8.1 L (13.0-17.0) g/dL Hct 24.9 L (39.6-50.0) % MCV 114.2 H (80.0-97.0) fL MCH 37.2 H (27.0-32.0) pg Monocytes # 1.08 H (0.20-1.00) X 10*3/uL Eosinophils # 0.54 H (0.04-0.35) X 10*3/uL Anion Gap 7.80 L (10.00-18.00) mmol/L Creatinine 1.6 H (0.6-1.5) mg/dL Est GFR (CKD-EPI)AfAm 52.8 L (60.0-200.0) Est GFR (CKD-EPI)NonAf 45.6 L (60.0-200.0) BUN/Creatinine Ratio 8.67 L (12.00-20.00) Ratio Calcium 8.4 L (8.7-10.3) mg/dL Total Bilirubin 4.70 H (0.30-1.20) mg/dL AST 42 H (14-35) U/L Ammonia 81 H (<30) umol/L Albumin 2.3 L (3.8-4.9) g/dL Globulin 4.0 H (1.6-3.3) g/dL Albumin/Globulin Ratio 0.58 L (1.60-3.17) g/dL Microbiology - Last 24 Hours (Table) 10/27/21 16:46 Anaerobic Culture - Preliminary Leg - Left 10/27/21 16:46 Gram Stain - Final Leg - Left Wound Culture - Final Klebsiella pneumoniae Staphylococcus simulans 10/26/21 17:15 Blood Culture - Preliminary Blood No Growth after 72 hours 10/26/21 17:00 Blood Culture - Preliminary Blood No Growth after 72 hours H & H 10/26/21 10/28/21 10/29/21 Range/Units 17:13 07:34 10:42 Hgb 9.0 L D 8.8 L 9.5 L (13.0-17.5) gm/dL Hct 27.6 L 26.7 L 30.8 L (39.0-53.0) % 10/30/21 Range/Units 06:41 Hgb 8.1 L (13.0-17.5) gm/dL Hct 24.9 L (39.0-53.0) % Coagulation 10/26/21 Range/Units 17:13 INR 1.5 H (<1.2) Result Diagrams: 11/01/21 06:57 11/01/21 06:57 Assessment and Plan Assessment: Left lower leg ulcer Plan: - The clinical and imaging findings were discussed with the patient. The patient was discussed with Dr. Olivo. No abscesses identified on computed tomography scan of the left lower leg. No surgical intervention is recommended at this time. Recommend local wound care and antibiotics per Dr. Wilder. - Recommend compression of the left lower leg with an Mendoza wrap, along with dressing changes to the ulcer twice a day. - We will follow patient closely while he remains inpatient and make recommendations as needed. Patient seen and examined. The abscess seems superficial and is already draining from the wound. patient states that the pain is improving. Agree with above recommendations.
[2021-10-30] MEDS: GABAPENTIN 300 MG CAP PO PRN (21:21)
[2021-10-30] MEDS: SODIUM CHLORIDE 0.9% 1,000 ML IV SCH (21:26)
[2021-10-31] MEDS: oxyCODONE-APAP 10-325MG 1 EACH TAB PO PRN ×5 (00:43→21:43)
--- NOTE | 2021-10-31 05:58 | PN ---
PROGRESS NOTE SUBJECTIVE: This 66-year-old gentleman admitted with hepatic failure, also had significant cellulitis. The patient is on IV antibiotics. The cultures are showing Klebsiella pneumonia and Staph Simulans. No chest pain, no palpitations, no fever. PHYSICAL EXAMINATION: VITAL SIGNS: Pulse is 85, blood pressure_, and respirations 17. HEENT: Conjunctivae normal. NECK: No jugular venous distention. CARDIOVASCULAR: S1, S2 muffled. RESPIRATIONS: Diminished at bases, few scattered rhonchi. ABDOMEN: Soft, obese. LEGS: Cellulitis. NERVOUS DEFICITS: No focal deficits. LABS: Hemoglobin 8.1. Other labs are reviewed. ASSESSMENT: 1. Bilateral leg cellulitis with left leg ulcer with Klebsiella as well as a Staph Simulans. 2. Acute on chronic hepatic failure. 3. Cirrhosis of liver. 4. Hypertension. 5. Multiple medical issues. 6. Gait dysfunction. RECOMMENDATIONS: 1. Continue current medications, continue antibiotics. 2. PT, OT evaluation, consider ECF rehab. Guarded prognosis. 3. Further recommendations to follow. MMODL / IJN: [id number] / SKYLA
[2021-10-31] MEDS: SPIRONOLACTONE 25 MG TAB PO SCH (07:58)
[2021-10-31] MEDS: METOPROLOL TARTRATE 25 MG TAB PO SCH ×2 (07:58→21:43)
[2021-10-31] MEDS: FUROSEMIDE 40 MG TAB PO SCH ×2 (07:59→15:18)
[2021-10-31] MEDS: MAGNESIUM OXIDE 400 MG TAB PO SCH ×2 (07:59→21:43)
[2021-10-31] MEDS: MONTELUKAST 10 MG TAB PO SCH (07:59)
[2021-10-31] MEDS: CEFEPIME 2 GM in SODIUM CHLORIDE 0.9% 100 ML IVPB SCH ×2 (08:00→21:44)
[2021-10-31] MEDS: LACTULOSE 20 GM/30 ML CUP PO SCH (08:00)
[2021-10-31] MEDS: POTASSIUM CHLORIDE ER 10 MEQ TAB.ER.PRT PO SCH ×2 (08:00→21:43)
--- NOTE | 2021-10-31 09:36 | P.PN ---
Subjective Progress Note Date: 10/31/21 Principal diagnosis: Left leg wound This patient is a 66- year old male with a past medical history of liver disease that presented to [facility] emergency department on 10/26/21 with complaints of a left lower extremity wound. Patient states he was admitted to [facility] recently and an I&D was performed of the left lower extremity. He is unsure of what his follow-up instructions were or what antibiotics he was taking at that time. He presented to the emergency department as he was experiencing increased drainage from the left lower extremity wound. He also was experiencing increased pain. The patient was admitted under the care of internal medicine with a consult placed to infectious disease and orthopedic surgery. The patient is examined bedside this morning. He states his left lower leg pain has improved significantly since admission. He is able to ambulate with minimal pain. He states he otherwise feels well and denies fevers or chills. Vital signs stable. Today, he states the leg is feeling better. He is afebrile. No new complaints today. The patient was seen with Dr. Olivo this morning. Objective - Vital Signs Vital signs: Vital Signs Temp 97.8 F 10/31/21 02:02 Pulse 67 10/31/21 02:02 Resp 18 10/31/21 02:02 BP 115/71 10/31/21 02:02 Pulse Ox 99 10/31/21 02:02 FiO2 Intake & Output 10/30/21 10/31/21 10/31/21 18:59 06:59 18:59 Intake Total 240 Output Total 600 Balance 240 -600 Intake: IV 240 Sodium Chloride 0.9% 1, 240 000 ml @ 20 mls/hr IV . Q24H [facility] Rx#:[id number] Output: Urine 600 Other: Voiding Method Toilet Toilet Toilet Urinal Urinal Urinal # Voids 1 1 - Exam On examination, patient is lying in bed in no apparent distress. He is alert and oriented 3. His head appears normocephalic and atraumatic. His breathing appears nonlabored. A focused examination of the left lower leg is conducted. On inspection of the left lower leg, there is a small pinhole size wound at the anterior lower leg with active purulent drainage. We were able to express more purulent drainage. There is minimal surrounding erythema. There is no pain with palpation of the left knee, ankle, foot. Calf is soft and nontender to palpation. Motor and sensory is intact of the left lower extremity. Left lower extremity is warm and well-perfused. - Labs CBC & Chem 7: 10/30/21 06:41 10/31/21 07:36 Labs: Abnormal Lab Results - Last 24 Hours (Table) 10/30/21 10/31/21 Range/Units 06:41 07:36 Anion Gap 7.80 L (10.00-18.00) mmol/L Creatinine 1.6 H 1.59 H (0.6-1.5) mg/dL Est GFR (CKD-EPI)AfAm 52.8 L (60.0-200.0) Est GFR (CKD-EPI)NonAf 45.6 L (60.0-200.0) BUN/Creatinine Ratio 8.67 L (12.00-20.00) Ratio Calcium 8.4 L (8.7-10.3) mg/dL Total Bilirubin 4.70 H (0.30-1.20) mg/dL AST 42 H (14-35) U/L Albumin 2.3 L (3.8-4.9) g/dL Globulin 4.0 H (1.6-3.3) g/dL Albumin/Globulin Ratio 0.58 L (1.60-3.17) g/dL Microbiology - Last 24 Hours (Table) 10/26/21 17:15 Blood Culture - Preliminary Blood No Growth after 96 hours 10/26/21 17:00 Blood Culture - Preliminary Blood No Growth after 96 hours Assessment and Plan (1) Wound of left leg Current Visit: Yes Status: Acute Code(s): S81.802A - UNSPECIFIED OPEN WOUND, LEFT LOWER LEG, INITIAL ENCOUNTER SNOMED Code(s): 954951183 (2) Bilateral lower leg cellulitis Current Visit: Yes Status: Acute Code(s): L03.116 - CELLULITIS OF LEFT LOWER LIMB; L03.115 - CELLULITIS OF RIGHT LOWER LIMB SNOMED Code(s): 655279253 Plan: - The clinical and imaging findings were discussed with the patient. The patient was seen with Dr. Olivo this morning. No abscesses identified on computed tomography scan of the left lower leg. No surgical intervention is recommended at this time. Recommend local wound care and antibiotics per Dr. Wilder. - Recommend compression of the left lower leg with an Mendoza wrap, along with dres sing changes to the ulcer at least twice a day. - Moist heat is recommended with a K-pad to the left lower leg. - We will follow patient closely while he remains inpatient and make recommendations as needed.
[2021-10-31] MEDS: VANCOMYCIN 1,750 MG in SODIUM CHLORIDE 0.9% 500 ML 500 ML IVPB SCH (12:15)
[2021-10-31] MEDS: GABAPENTIN 300 MG CAP PO PRN ×2 (15:18→21:44)
[2021-10-31] MEDS: SODIUM CHLORIDE 0.9% 1,000 ML IV SCH (21:45)
--- NOTE | 2021-10-31 23:36 | P.PN ---
Subjective Progress Note Date: 10/31/21 Principal diagnosis: Left leg abscess and cellulitis Patient is a 66-year-old -Tristanian male with multiple comorbidities presented to the hospital with left lower extremity redness any purulent drainage has been diagnosed with an abscess and cellulitis. Patient has been e valuated by orthopedics recommending no drainage On today's evaluation that is 10/31/2021, the patient remains to be afebrile, the left lower extremity pain and drainage has decreased in intensity, the patient denies having any chest pain shortness of breath or cough no nausea no vomiting and no diarrhea Objective - Vital Signs Vital signs: Vital Signs Temp 97.6 F 10/31/21 14:00 Pulse 74 10/31/21 14:00 Resp 16 10/31/21 14:00 BP 116/74 10/31/21 14:00 Pulse Ox 99 10/31/21 14:00 FiO2 Intake & Output 10/30/21 10/31/21 10/31/21 18:59 06:59 18:59 Intake Total 240 Output Total 600 Balance 240 -600 Intake: IV 240 Sodium Chloride 0.9% 1, 240 000 ml @ 20 mls/hr IV . Q24H [facility] Rx#:[id number] Output: Urine 600 Other: Voiding Method Toilet Toilet Toilet Urinal Urinal Urinal # Voids 1 1 - Exam GENERAL DESCRIPTION: A middle-age male lying in bed in no distress RESPIRATORY SYSTEM: Unlabored breathing , decreased breath sounds at bases HEART: S1 S2 regular rate and rhythm , ABDOMEN: Soft , no tenderness EXTREMITIES: Left leg wound is currently dressed with drainage of the dressing - Labs CBC & Chem 7: 10/30/21 06:41 10/31/21 07:36 Labs: Abnormal Lab Results - Last 24 Hours (Table) 10/31/21 Range/Units 07:36 Creatinine 1.59 H (0.66-1.25) mg/dL Microbiology - Last 24 Hours (Table) 10/26/21 17:15 Blood Culture - Preliminary Blood No Growth after 96 hours 10/26/21 17:00 Blood Culture - Preliminary Blood No Growth after 96 hours Assessment and Plan (1) Bilateral lower leg cellulitis Current Visit: Yes Status: Acute Code(s): L03.116 - CELLULITIS OF LEFT LOWER LIMB; L03.115 - CELLULITIS OF RIGHT LOWER LIMB SNOMED Code(s): 838763730 Plan: 1patient with acute left lower extremity cellulitis and wound which is draining some purulent drainage concerning for underlying abscess likely from gram- positive skin [place] with recent admission to an outside facility and apparently the patient had drainage of an abscess however the patient not sure about the culture on the antibiotic he has been treated with. 2 CT of the left leg was negative for any fluid collection and the patient has been evaluated by orthopedics recommending no drainage 3patient seemed subclinical comment and local cultures grew Klebsiella and Staphylococcus oxacillin resistant patient would continue with a cefepime and vancomycin will need outpatient IV antibiotic on discharge for which a PICC line will be placed Time with Patient: Less than 30
--- NOTE | 2021-11-01 00:35 | PN ---
PROGRESS NOTE SUBJECTIVE: This 66-year-old gentleman was admitted with liver failure and cellulitis is being closely monitored. No chest pain. No palpitations. No fever. ID is planning IV antibiotics. Cultures are showing Klebsiella pneumoniae and Staph Simulans. PHYSICAL EXAMINATION: VITAL SIGNS: Pulse is 74, blood pressure 116/74, respirations 16. CHEST: Clear to auscultation. CARDIOVASCULAR: S1 and S2 muffled. ABDOMEN: Soft, obese. LEGS: Cellulitis. LABS: Reviewed. Creatinine is 1.59. ASSESSMENT: 1. Bilateral leg cellulitis with left leg ulcer with klebsiella as well as Staph Simulans. 2. Acute on chronic hepatic failure. 3. Cirrhosis of liver. 4. Hypertension. 5. Multiple medical issues. 6. Gait dysfunction. RECOMMENDATIONS: I recommend to continue current management and symptomatic treatment. Continue with antibiotics. Plan long-term IV antibiotics. I would recommend repeat labs. Monitor creatinine closely. Avoid nephrotoxic medications. MMODL / IJN: [id number] /
[2021-11-01] MEDS: oxyCODONE-APAP 10-325MG 1 EACH TAB PO PRN ×5 (02:21→21:42)
[2021-11-01 07:51] LABS: ALT 22 U/L (4-49); AST 41 U/L (17-59); African American GFR (CKD) 50 (>60 ml/min/1.73 sqM); Albumin 2.5 g/dL (3.5-5.0); Albumin/Globulin Ratio 0.6; Alkaline Phosphatase 79 U/L (38-126); Anion Gap 7 mmol/L; Blood Urea Nitrogen 16 mg/dL (9-20); Calcium 8.2 mg/dL (8.4-10.2); Carbon Dioxide 21 mmol/L (22-30); Chloride 109 mmol/L (98-107); Globulin 4.3 g/dL; Glucose 81 mg/dL (74-99); Non-African American GFR(CKD) 43 (>60 ml/min/1.73 sqM); Potassium 4.5 mmol/L (3.5-5.1); Sodium 137 mmol/L (137-145); Total Bilirubin 5.3 mg/dL (0.2-1.3); Total Protein 6.8 g/dL (6.3-8.2)
[2021-11-01] MEDS: LACTULOSE 20 GM/30 ML CUP PO SCH (08:45)
[2021-11-01] MEDS: POTASSIUM CHLORIDE ER 10 MEQ TAB.ER.PRT PO SCH ×2 (08:45→22:09)
[2021-11-01] MEDS: METOPROLOL TARTRATE 25 MG TAB PO SCH ×2 (08:45→22:09)
[2021-11-01] MEDS: MAGNESIUM OXIDE 400 MG TAB PO SCH ×2 (08:45→22:09)
[2021-11-01] MEDS: MONTELUKAST 10 MG TAB PO SCH (08:45)
[2021-11-01] MEDS: CEFEPIME 2 GM in SODIUM CHLORIDE 0.9% 100 ML IVPB SCH ×2 (10:00→22:08)
[2021-11-01 10:16] LABS: Basophils # (A) 0.14 X 10*3/uL (0.00-0.10); Basophils % (A) 1.6 %; Eosinophils # (A) 0.44 X 10*3/uL (0.04-0.35); HCT 25.4 % (39.6-50.0); HGB 8.3 g/dL (13.0-17.0); Immature Grans, Automated 0.2 %; Lymphocytes % (A) 27.3 %; MCH 36.4 pg (27.0-32.0); MCHC 32.7 g/dL (32.0-37.0); MCV 111.4 fL (80.0-97.0); Mean Platelet Volume 9.5 fL (9.5-12.2); Monocytes # (A) 1.21 X 10*3/uL (0.20-1.00); Monocytes % (A) 13.8 %; NRBC Per 100 WBC 0 /100 WBCS (0.0-0.0); Neutrophils # (A) 4.58 X 10*3/uL (1.80-7.70); Neutrophils % (A) 52.1 %; Platelet Count 140 X 10*3/uL (140-440); RBC 2.28 X 10*6/uL (4.40-5.60); WBC 8.79 X 10*3/uL (4.50-10.00)
--- NOTE | 2021-11-01 10:25 | P.PN ---
Subjective Progress Note Date: 11/01/21 Principal diagnosis: Left leg wound This patient is a 66- year old male with a past medical history of liver disease that presented to [facility] emergency department on 10/26/21 with complaints of a left lower extremity wound. Patient states he was admitted to [facility] recently and an I&D was performed of the left lower extremity. He is unsure of what his follow-up instructions were or what antibiotics he was taking at that time. He presented to the emergency department as he was experiencing increased drainage from the left lower extremity wound. He also was experiencing increased pain. The patient was admitted under the care of internal medicine with a consult placed to infectious disease and orthopedic surgery. The patient is examined bedside this morning. He states his left lower leg pain has improved significantly since admission. He is able to ambulate with minimal pain. He states he otherwise feels well and denies fevers or chills. Vital signs stable. 10/31/2021: He states the leg is feeling better. He is afebrile. No new complaints today. The patient was seen with Dr. Olivo this morning. 11/01/2021: He state the leg continues to feel better. The patient took a shower this morning. The nursing staff states there was a lot of drainage out of the leg yesterday after the K-pad was applied. He is afebrile. Objective - Vital Signs Vital signs: Vital Signs Temp 98.5 F 11/01/21 07:49 Pulse 82 11/01/21 07:49 Resp 18 11/01/21 07:49 BP 125/72 11/01/21 07:49 Pulse Ox 100 11/01/21 07:49 FiO2 Intake & Output 10/31/21 11/01/21 11/01/21 18:59 06:59 18:59 Output Total 500 Balance -500 Output: Urine 500 Other: Voiding Method Toilet Toilet Toilet Urinal Urinal Urinal # Voids 2 3 # Bowel Movements 2 - Exam On examination, patient is lying in bed in no apparent distress. He is alert and oriented 3. His head appears normocephalic and atraumatic. His breathing appears nonlabored. A focused examination of the left lower leg is conducted. On inspection of the left lower leg, there is a small pinhole size wound at the anterior lower leg with active purulent drainage. We were able to express more purulent drainage. There is improved surrounding erythema. There is no pain with palpation of the left knee, ankle, foot. Calf is soft and nontender to palpation. Motor and sensory is intact of the left lower extremity. Left lower extremity is warm and well-perfused. - Labs CBC & Chem 7: 11/01/21 06:57 11/01/21 06:57 Labs: Abnormal Lab Results - Last 24 Hours (Table) 11/01/21 11/01/21 Range/Units 06:57 06:57 RBC 2.28 L (4.40-5.60) X 10*6/uL Hgb 8.3 L (13.0-17.0) g/dL Hct 25.4 L (39.6-50.0) % MCV 111.4 H (80.0-97.0) fL MCH 36.4 H (27.0-32.0) pg Monocytes # 1.21 H (0.20-1.00) X 10*3/uL Eosinophils # 0.44 H (0.04-0.35) X 10*3/uL Basophils # 0.14 H (0.00-0.10) X 10*3/uL Chloride 109 H (98-107) mmol/L Carbon Dioxide 21 L (22-30) mmol/L Creatinine 1.66 H (0.66-1.25) mg/dL Calcium 8.2 L (8.4-10.2) mg/dL Total Bilirubin 5.3 H (0.2-1.3) mg/dL Albumin 2.5 L (3.5-5.0) g/dL Microbiology - Last 24 Hours (Table) 10/27/21 16:46 Anaerobic Culture - Final Leg - Left 10/26/21 17:00 Blood Culture - Preliminary Blood No Growth after 120 hours 10/26/21 17:15 Blood Culture - Preliminary Blood No Growth after 120 hours Assessment and Plan (1) Wound of left leg Current Visit: Yes Status: Acute Code(s): S81.802A - UNSPECIFIED OPEN WOUND, LEFT LOWER LEG, INITIAL ENCOUNTER SNOMED Code(s): 845505655 (2) Bilateral lower leg cellulitis Current Visit: Yes Status: Acute Code(s): L03.116 - CELLULITIS OF LEFT LOWER LIMB; L03.115 - CELLULITIS OF RIGHT LOWER LIMB SNOMED Code(s): 782982429 Plan: - The clinical and imaging findings were discussed with the patient. The patient was seen with Dr. Olivo this morning. No abscesses identified on computed tomography scan of the left lower leg. No surgical intervention is recommended at this time. Recommend local wound care and antibiotics per Dr. Wilder. - Recommend compression of the left lower leg with an Mendoza wrap, along with dressing changes to the ulcer at least twice a day. - Moist heat is recommended with a K-pad to the left lower leg. - We will sign off at this time.
[2021-11-01] MEDS: VANCOMYCIN 1,750 MG in SODIUM CHLORIDE 0.9% 500 ML 500 ML IVPB SCH (14:45)
--- NOTE | 2021-11-01 15:11 | P.PN ---
Subjective Progress Note Date: 11/01/21 Principal diagnosis: Left leg abscess and cellulitis Patient is a 66-year-old -Beninese male with multiple comorbidities presented to the hospital with left lower extremity redness any purulent drainage has been diagnosed with an abscess and cellulitis. Patient has been e valuated by orthopedics recommending no drainage On today's evaluation that is 11/01/2021, the patient continues to be afebrile, the patientleft lower extremity pain and drainage has decreased in intensity, the patient denies chest pain shortness of breath or cough, the patient denies vomiting and no diarrhea Objective - Vital Signs Vital signs: Vital Signs Temp 98.1 F 11/01/21 14:00 Pulse 79 11/01/21 14:00 Resp 17 11/01/21 14:00 BP 118/74 11/01/21 14:00 Pulse Ox 99 11/01/21 14:00 FiO2 Intake & Output 10/31/21 11/01/21 11/01/21 18:59 06:59 18:59 Output Total 500 Balance -500 Output: Urine 500 Other: Voiding Method Toilet Toilet Toilet Urinal Urinal Urinal # Voids 2 3 # Bowel Movements 2 - Exam GENERAL DESCRIPTION: A middle-age male lying in bed in no distress RESPIRATORY SYSTEM: Unlabored breathing , decreased breath sounds at bases HEART: S1 S2 regular rate and rhythm , ABDOMEN: Soft , no tenderness EXTREMITIES: Left leg swelling and redness has decreased still have some serous drainage from the middle part of the wound no purulence - Labs CBC & Chem 7: 11/01/21 06:57 11/01/21 06:57 Labs: Abnormal Lab Results - Last 24 Hours (Table) 11/01/21 11/01/21 Range/Units 06:57 06:57 RBC 2.28 L (4.40-5.60) X 10*6/uL Hgb 8.3 L (13.0-17.0) g/dL Hct 25.4 L (39.6-50.0) % MCV 111.4 H (80.0-97.0) fL MCH 36.4 H (27.0-32.0) pg Monocytes # 1.21 H (0.20-1.00) X 10*3/uL Eosinophils # 0.44 H (0.04-0.35) X 10*3/uL Basophils # 0.14 H (0.00-0.10) X 10*3/uL Chloride 109 H (98-107) mmol/L Carbon Dioxide 21 L (22-30) mmol/L Creatinine 1.66 H (0.66-1.25) mg/dL Calcium 8.2 L (8.4-10.2) mg/dL Total Bilirubin 5.3 H (0.2-1.3) mg/dL Albumin 2.5 L (3.5-5.0) g/dL Microbiology - Last 24 Hours (Table) 10/27/21 16:46 Anaerobic Culture - Final Leg - Left 10/26/21 17:00 Blood Culture - Preliminary Blood No Growth after 120 hours 10/26/21 17:15 Blood Culture - Preliminary Blood No Growth after 120 hours Assessment and Plan (1) Bilateral lower leg cellulitis Current Visit: Yes Status: Acute Code(s): L03.116 - CELLULITIS OF LEFT LOWER LIMB; L03.115 - CELLULITIS OF RIGHT LOWER LIMB SNOMED Code(s): 558761544 Plan: 1patient with acute left lower extremity cellulitis and wound which is draining some purulent drainage concerning for underlying abscess likely from gram- positive skin [place] with recent admission to an outside facility and apparently the patient had drainage of an abscess however the patient not sure about the culture on the antibiotic he has been treated with. 2 CT of the left leg was negative for any fluid collection and the patient has been evaluated by orthopedics recommending no drainage 3patient has shown clinical improvement, left leg local cultures grew Klebsiella and Staphylococcus oxacillin resistant patient continue with cefepime and vancomycin plan is for PICC line and outpatient IV antibiotic on discharge Time with Patient: Less than 30
[2021-11-01] MEDS: SODIUM CHLORIDE 0.9% 1,000 ML IV SCH (22:10)
[2021-11-02] MEDS: oxyCODONE-APAP 10-325MG 1 EACH TAB PO PRN ×6 (02:28→22:00)
--- NOTE | 2021-11-02 08:24 | PN ---
PROGRESS NOTE SUBJECTIVE: This 66-year-old gentleman, who was admitted with bilateral leg cellulitis and leg ulcer, is being closely monitored at this time. The patient is confused also. No chest pain. No palpitation. PHYSICAL EXAMINATION: VITAL SIGNS: Pulse 82, blood pressure n, respirations 18. CHEST: Clear to auscultation. CARDIOVASCULAR: S1, S2 ABDOMEN: Soft, obese. LEG: Cellulitis. LABORATORY DATA: Hemoglobin 8.3, creatinine 1.66. ASSESSMENT: 1. Bilateral leg cellulitis with left leg ulcer with Klebsiella as well as Staph Simulans. 2. Acute on chronic hepatic failure. 3. Cirrhosis of liver. 4. Hypertension. 5. Multiple medical issues. RECOMMENDATIONS: I recommend to continue current management and symptomatic treatment. Repeat labs. Lasix and Aldactone are on hold because of the elevated creatinine. We will continue to monitor. Home versus ECF rehab tomorrow. MMODL / FRANCIN: [id number] / MTDD
[2021-11-02] MEDS: LACTULOSE 20 GM/30 ML CUP PO SCH (09:44)
[2021-11-02] MEDS: METOPROLOL TARTRATE 25 MG TAB PO SCH ×2 (09:44→21:01)
[2021-11-02] MEDS: MONTELUKAST 10 MG TAB PO SCH (09:44)
[2021-11-02] MEDS: POTASSIUM CHLORIDE ER 10 MEQ TAB.ER.PRT PO SCH ×2 (09:44→21:01)
[2021-11-02] MEDS: MAGNESIUM OXIDE 400 MG TAB PO SCH ×2 (09:45→21:01)
[2021-11-02] MEDS: CEFEPIME 2 GM in SODIUM CHLORIDE 0.9% 100 ML IVPB SCH (09:45)
[2021-11-02] MEDS ORDERED: LIDOCAINE 1% INJ 10MG/ML (30 ML VIAL-PF) SQ ONE (11:13)
--- NOTE | 2021-11-02 11:57 | IR ---
PICC LINE PLACEMENT: HISTORY: Infection requiring long-term antibiotic therapy PROCEDURE: Ultrasound and fluoroscopic guidance of PICC line placement. COMPLICATIONS: None ANESTHESIA: 1. 1% Lidocaine locally. FINDINGS/TECHNIQUE: The procedure was explained to the patient. The risks, complications, benefits and alternatives were discussed and any questions were answered. Informed consent was obtained. The patient was placed supine on the fluoroscopic table and prepped and draped in the usual sterile fash ion. Utilizing a 21 gauge needle and sonographic and fluoroscopic guidance, access in the left basi lic vein was achieved and there is placement of a 0.018 guidewire. The vein is patent. A 4-F sheath was placed over the guidewire. The guidewire and dilator were removed and a 4-F. PICC line was plac ed through the sheath with the tip at the level of the SVC. The sheath was removed, the catheter was flushed and sutured into position. The patient was stable throughout the procedure and remained sta ble upon discharge from the Department of Radiology. The vein puncture was patent under ultrasound. A abrams scale image was obtained to document patency of the vein punctured. All elements of the maximal barrier technique were utilized. FLUOROSCOPY TIME: 0.3 minutes and one image submitted. IMPRESSION: Successful PICC line placement under ultrasound and fluoroscopic guidance.
[2021-11-02] MEDS ORDERED: VANCOMYCIN TROUGH DUE 1 EACH MISC MISCELLANE ONE (12:00)
[2021-11-02 12:30] LABS: African American GFR (CKD) 52 (>60 ml/min/1.73 sqM); Anion Gap 10 mmol/L; Blood Urea Nitrogen 17 mg/dL (9-20); Calcium 8.7 mg/dL (8.4-10.2); Carbon Dioxide 19 mmol/L (22-30); Chloride 107 mmol/L (98-107); Glucose 86 mg/dL (74-99); Non-African American GFR(CKD) 45 (>60 ml/min/1.73 sqM); Sodium 136 mmol/L (137-145)
[2021-11-02 12:33] LABS: Basophils # (A) 0.1 k/uL (0-0.2); Basophils % (A) 2 %; Eosinophils # (A) 0.3 k/uL (0-0.7); Eosinophils % (A) 4 %; HCT 31.1 % (39.0-53.0); HGB 9.6 gm/dL (13.0-17.5); Hypochromasia Marked; Lymphocytes # (A) 1.6 k/uL (1.0-4.8); Lymphocytes % (A) 20 %; MCHC 30.8 g/dL (31.0-37.0); Macrocytosis Marked; Mean Platelet Volume 7.7; Monocytes # (A) 0.9 k/uL (0-1.0); Monocytes % (A) 12 %; Neutrophils # (A) 4.8 k/uL (1.3-7.7); Neutrophils % (A) 60 %; Platelet Count 124 k/uL (150-450); RBC 2.59 m/uL (4.30-5.90); RDW 13.8 % (11.5-15.5); WBC 7.9 k/uL (3.8-10.6)
[2021-11-02 12:35] LABS: MCV 120.1 fL (80.0-100.0)
[2021-11-02] MEDS: VANCOMYCIN 1,750 MG in SODIUM CHLORIDE 0.9% 500 ML 500 ML IVPB SCH (14:08)
[2021-11-02 14:41] VITALS: BMI 35.9
--- NOTE | 2021-11-02 18:36 | P.PN ---
Progress Note - Text Progress Note Date: 11/02/21 This is a 66-year-old patient who follows with Dr. Reyes. Chronic stable medical conditions include hypertension, diverticulosis, arthritis, sleeve gastrectomy done in August 2013, then gastric bypass done by [facility]. Subsequently patient had some complications what he describes as a leak and was sent to. [facility]. Surgery was felt to be very risky. - no further intervention was done. history of significant alcohol intake. Diagnosed with alcoholic cirrhosis This admission: venous sufficiency left leg apparently had recently did have a drainage of the left leg abscess at the [facility] however the patient not sure about the cultures and the antibiotic for the patient was treated with patient is presenting to [facility] ER yesterday afternoon for evaluation of increased generalized weakness confusion and increasing bilateral lower extremity swelling along with some purulent drainage from the left leg patient be complaining of some pain to the left leg tomorrow with a leaking at times sharp 5-6 out of 10 no radiation on arrival to the ER the patient was afebrile and no fever have been recorded subsequently patient did have normal white count creatinine was mildly elevated liver enzymes are normal urine has been negative patient did have blood cultures obtained Diagnosed with acute left auditory cellulitis and wound. CT of the wound negative for any abscess collection. Seen by orthopedics. No drainage. November 02: I assumed care of the patient today, from [facility] hospitalists. At a baseline patient does use a walker. Eating good. No fever no chills. Pending PICC line placement. Had a BM yesterday.Informed by telehealth case manager that infusion company will not be able to set up until tomorrow. Active Medications Albuterol Sulfate (Albuterol Nebulized 2.5 Mg/3 Ml) 2.5 mg INHALATION RT-Q6H PRN PRN Reason: Shortness Of Breath Ergocalciferol (Ergocalciferol 1,250 Mcg (50,000 Iu) Capsule) 1,250 mcg PO Q7D [place] Last Admin: 10/28/21 09:10 Dose: 1,250 mcg Gabapentin (Gabapentin 300 Mg Cap) 300 mg PO TID PRN PRN Reason: Pain Last Admin: 10/31/21 21:44 Dose: 300 mg Sodium Chloride (Saline 0.9%) 1,000 mls @ 20 mls/hr IV .Q24H [place] Last Admin: 11/01/21 22:10 Dose: 20 mls/hr Ceftriaxone Sodium 2 gm/ (Sodium Chloride) 50 mls @ 100 mls/hr IVPB Q24HR [facility]; Protocol Last Admin: 11/02/21 13:16 Dose: 100 mls/hr Vancomycin HCl 1,750 mg/ (Sodium Chloride) 500 mls @ 167 mls/hr IVPB Q30H [facility] Lactulose (Lactulose 20 Gm/30 Ml Cup) 20 gm PO DAILY [facility] Last Admin: 11/02/21 09:44 Dose: 20 gm Magnesium Oxide (Magnesium Oxide 400 Mg Tab) 400 mg PO BID [facility] Last Admin: 11/02/21 09:45 Dose: 400 mg Metoprolol Tartrate (Metoprolol Tartrate 25 Mg Tab) 25 mg PO BID [facility] Last Admin: 11/02/21 09:44 Dose: 25 mg Montelukast Sodium (Montelukast 10 Mg Tab) 10 mg PO DAILY [facility] Last Admin: 11/02/21 09:44 Dose: 10 mg Naloxone HCl (Naloxone 0.4 Mg/Ml 1 Ml Vial) 0.2 mg IV Q2M PRN PRN Reason: Opioid Reversal Oxycodone/Acetaminophen (Oxycodone-Apap 10-325mg 1 Each Tab) 1 each PO Q4H PRN PRN Reason: Pain Last Admin: 11/02/21 18:12 Dose: 1 each Polyethylene Glycol (Polyethylene Glycol 3350 17 Gm Powd.Pack) 17 gm PO DAILY PRN PRN Reason: Constipation Potassium Chloride (Potassium Chloride Er 10 Meq Tab.Er.Prt) 10 meq PO BID [facility] Last Admin: 11/02/21 09:44 Dose: 10 meq Past medical history to include: Hypertension, diverticulosis, gout, polyps, arthritis, lung abscess in 2014, gastrics sleeve leak, venous insufficiency left lower extremity, gallstones sleeve gastrectomy August 2013, gastric bleed in 2014, 2016 gastric bypass. Alcoholic cirrhosis Social history: Lives with his mother and nephew. Drinks 3-4 glasses of wine daily and a pint of bourbon about 3-4 nights a week. Cigars a few times a week. Physical examination: VITAL SIGNS: 98.6, 71, 17, 92/50, 93% room air GENERAL: reclining in bed, awake, comfortable EYES: Pupils equal. Conjunctiva normal. HEENT: External appearance of nose and ears normal, oral cavity grossly normal. NECK: JVD unable to assess; masses not palpable. HEART: First and second heart sounds are normal; edema improved LUNGS: Respiratory rate normal; distant breath sounds. ABDOMEN: Soft, slightly distended nontender, liver spleen not palpable, no masses palpable. PSYCH: Alert and oriented x3; mood and affect normal. DERMATOLOGICAL: Dressing with Mendoza wrap left lower extremity below the knee INVESTIGATIONS, reviewed in the clinical context: White count 7.9 hemoglobin 9.6 platelets 124 potassium 5 BUN 17 creatinine 1.59 Computed tomography scan lower leg lift without contrast: Soft tissue swelling without any obvious evidence of abscess Wound culture: Klebsiella pneumonia and Staphylococcus simulans Assessment and plan: -Acute left lower extremity cellulitis and wound secondary to underlying edema.Wound culture: Klebsiella pneumonia and Staphylococcus simulans Computed tomography scan negative for abscess. Seen by orthopedics. Recommended no I&D. IV vancomycin and IV ceftriaxone. -Hepatic cirrhosis, secondary to alcoholism Aldactone. Lasix. Fluid restriction. -Failed gastric bypass and sleeve gastrectomy-has followed up [facility]. High risk of surgery hence no further intervention - obesity BMI 35.9 Weight loss measures -Primary osteoarthritis multiple joints Percocet when necessary -Chronic nicotine dependence, cigar smoker Nicotine patch -Alcohol use disorder Abstain -Chronic kidney disease, stage III, from hepatorenal syndrome Follow renal function -COPD in the current smoker Pro-air when necessary Patient on IV ceftriaxone, IV vancomycin. PICC line being placed. Home care infusion cannot resume until tomorrow. Repeat BMP tomorrow.
--- NOTE | 2021-11-02 21:44 | P.PN ---
Subjective Progress Note Date: 11/02/21 Principal diagnosis: Left leg abscess and cellulitis Patient is a 66-year-old -[place]anish male with multiple comorbidities presented to the hospital with left lower extremity redness any purulent drainage has been diagnosed with an abscess and cellulitis. Patient has been e valuated by orthopedics recommending no drainage On today's evaluation that is 11/02/2021, the patient remains to be afebrile, the patient left lower extremity pain and drainage has decreased in intensity, the patient denies chest pain shortness of breath or cough, the patient denies vomiting and no abdominal pain and no diarrhea Objective - Vital Signs Vital signs: Vital Signs Temp 98.8 F 11/02/21 08:09 Pulse 119 H 11/02/21 08:09 Resp 17 11/02/21 08:09 BP 118/73 11/02/21 08:09 Pulse Ox 99 11/02/21 08:09 FiO2 Intake & Output 11/01/21 11/02/21 11/02/21 18:59 06:59 18:59 Output Total 1150 Balance -1150 Output: Urine 1150 Other: Voiding Method Toilet Toilet Toilet Urinal Urinal # Voids 3 - Exam GENERAL DESCRIPTION: A middle-age male lying in bed in no distress RESPIRATORY SYSTEM: Unlabored breathing , decreased breath sounds at bases HEART: S1 S2 regular rate and rhythm , ABDOMEN: Soft , no tenderness EXTREMITIES: Left leg swelling and redness has decreased - Labs CBC & Chem 7: 11/02/21 11:48 11/02/21 11:48 Labs: Microbiology - Last 24 Hours (Table) 10/26/21 17:00 Blood Culture - Final Blood No Growth after 144 hours 10/26/21 17:15 Blood Culture - Final Blood No Growth after 144 hours Assessment and Plan (1) Bilateral lower leg cellulitis Current Visit: Yes Status: Acute Code(s): L03.116 - CELLULITIS OF LEFT LOWER LIMB; L03.115 - CELLULITIS OF RIGHT LOWER LIMB SNOMED Code(s): 172479805 Plan: 1patient with acute left lower extremity cellulitis and wound which is draining some purulent drainage concerning for underlying abscess likely from gram- positive skin [place] with recent admission to an outside facility and apparently the patient had drainage of an abscess however the patient not sure about the culture on the antibiotic he has been treated with. 2 CT of the left leg was negative for any fluid collection and the patient has been evaluated by orthopedics recommending no drainage 3patient has shown clinical improvement, left leg local cultures grew Klebsiella and Staphylococcus oxacillin resistant patient to continue with van comycin and cefepime switched to Rocephin 2 g daily both antibiotic to continue for 2 weeks on discharge prescription provided to the case manager specialist Time with Patient: Less than 30
[2021-11-02] MEDS: SODIUM CHLORIDE 0.9% 1,000 ML IV SCH (22:00)
[2021-11-03] MEDS: oxyCODONE-APAP 10-325MG 1 EACH TAB PO PRN ×5 (02:04→21:10)
[2021-11-03 06:13] LABS: African American GFR (CKD) 58 (>60 ml/min/1.73 sqM); Anion Gap 11 mmol/L; Blood Urea Nitrogen 17 mg/dL (9-20); Calcium 8.4 mg/dL (8.4-10.2); Carbon Dioxide 18 mmol/L (22-30); Chloride 106 mmol/L (98-107); Glucose 86 mg/dL (74-99); Non-African American GFR(CKD) 51 (>60 ml/min/1.73 sqM); Potassium 4.9 mmol/L (3.5-5.1); Sodium 135 mmol/L (137-145)
[2021-11-03] MEDS: MAGNESIUM OXIDE 400 MG TAB PO SCH ×2 (07:00→21:10)
[2021-11-03] MEDS: MONTELUKAST 10 MG TAB PO SCH (07:00)
[2021-11-03] MEDS: POTASSIUM CHLORIDE ER 10 MEQ TAB.ER.PRT PO SCH ×2 (07:00→21:11)
[2021-11-03] MEDS: METOPROLOL TARTRATE 25 MG TAB PO SCH ×2 (07:01→21:10)
[2021-11-03] MEDS: LACTULOSE 20 GM/30 ML CUP PO SCH (07:01)
[2021-11-03] MEDS: DAPTOmycin 350 MG in SODIUM CHLORIDE 0.9% 50 ML IVPB SCH (11:54)
--- NOTE | 2021-11-03 18:06 | P.PN ---
Progress Note - Text Progress Note Date: 11/03/21 This is a 66-year-old patient who follows with Dr. Reyes. Chronic stable medical conditions include hypertension, diverticulosis, arthritis, sleeve gastrectomy done in August 2013, then [place] [facility] Subsequently patient had some complications what he describes as a leak and was sent to. [facility]. Surgery was felt to be very risky. - no further intervention was done. history of significant alcohol intake. Diagnosed with alcoholic cirrhosis This admission: venous sufficiency left leg apparently had recently did have a drainage of the left leg abscess at the [facility] however the patient not sure about the cultures and the antibiotic for the patient was treated with patient is presenting to [facility] ER yesterday afternoon for evaluation of increased generalized weakness confusion and increasing bilateral lower extremity swelling along with some purulent drainage from the left leg patient be complaining of some pain to the left leg tomorrow with a leaking at times sharp 5-6 out of 10 no radiation on arrival to the ER the patient was afebrile and no fever have been recorded subsequently patient did have normal white count creatinine was mildly elevated liver enzymes are normal urine has been negative patient did have blood cultures obtained Diagnosed with acute left auditory cellulitis and wound. CT of the wound negative for any abscess collection. Seen by orthopedics. No drainage. November 02: I assumed care of the patient today, from [facility] hospitalists. At a baseline patient does use a walker. Eating good. No fever no chills. Pending PICC line placement. Had a BM yesterday.Informed by insurance case manager that infusion company will not be able to set up until tomorrow. November 03: Getting IV antibiotics. Comfortable. Spoke to the insurance case manager nurse. Home antibiotics are being arranged. Spoke with patient. Late in the day spoke to the nurse home antibiotics were not being arranged has discharged to be done tomorrow. Active Medications Albuterol Sulfate (Albuterol Nebulized 2.5 Mg/3 Ml) 2.5 mg INHALATION RT-Q6H PRN PRN Reason: Shortness Of Breath Ergocalciferol (Ergocalciferol 1,250 Mcg (50,000 Iu) Capsule) 1,250 mcg PO Q7D [facility] Last Admin: 10/28/21 09:10 Dose: 1,250 mcg Gabapentin (Gabapentin 300 Mg Cap) 300 mg PO TID PRN PRN Reason: Pain Last Admin: 10/31/21 21:44 Dose: 300 mg Sodium Chloride (Saline 0.9%) 1,000 mls @ 20 mls/hr IV .Q24H [facility] Last Admin: 11/02/21 22:00 Dose: 20 mls/hr Ceftriaxone Sodium 2 gm/ (Sodium Chloride) 50 mls @ 100 mls/hr IVPB Q24HR [facility]; Protocol Last Admin: 11/03/21 07:01 Dose: 100 mls/hr Daptomycin 350 mg/ Sodium (Chloride) 50 mls @ 100 mls/hr IVPB Q24H [facility]; Protocol Last Admin: 11/03/21 11:54 Dose: 100 mls/hr Lactulose (Lactulose 20 Gm/30 Ml Cup) 20 gm PO DAILY [facility] Last Admin: 11/03/21 07:01 Dose: 20 gm Magnesium Oxide (Magnesium Oxide 400 Mg Tab) 400 mg PO BID [facility] Last Admin: 11/03/21 07:00 Dose: 400 mg Metoprolol Tartrate (Metoprolol Tartrate 25 Mg Tab) 25 mg PO BID [facility] Last Admin: 11/03/21 07:01 Dose: 25 mg Montelukast Sodium (Montelukast 10 Mg Tab) 10 mg PO DAILY [facility] Last Admin: 11/03/21 07:00 Dose: 10 mg Naloxone HCl (Naloxone 0.4 Mg/Ml 1 Ml Vial) 0.2 mg IV Q2M PRN PRN Reason: Opioid Reversal Oxycodone/Acetaminophen (Oxycodone-Apap 10-325mg 1 Each Tab) 1 each PO Q4H PRN PRN Reason: Pain Last Admin: 11/03/21 16:45 Dose: 1 each Polyethylene Glycol (Polyethylene Glycol 3350 17 Gm Powd.Pack) 17 gm PO DAILY PRN PRN Reason: Constipation Potassium Chloride (Potassium Chloride Er 10 Meq Tab.Er.Prt) 10 meq PO BID [facility] Last Admin: 11/03/21 07:00 Dose: 10 meq Past medical history to include: Hypertension, diverticulosis, gout, polyps, arthritis, lung abscess in 2014, gastrics sleeve leak, venous insufficiency left lower extremity, gallstones sleeve gastrectomy August 2013, gastric bleed in 2014, 2016 gastric bypass. Alcoholic cirrhosis Social history: Lives with his mother and nephew. Drinks 3-4 glasses of wine daily and a pint of bourbon about 3-4 nights a week. Cigars a few times a week. Physical examination: VITAL SIGNS: 97.8, 89, 18, 127/78, 99% room air GENERAL: Up in a chair, awake, comfortable EYES: Pupils equal. Conjunctiva normal. HEENT: External appearance of nose and ears normal, oral cavity grossly normal. NECK: JVD unable to assess; masses not palpable. HEART: First and second heart sounds are normal; edema improved LUNGS: Respiratory rate normal; distant breath sounds. ABDOMEN: Soft, slightly distended nontender, liver spleen not palpable, no masses palpable. PSYCH: Alert and oriented x3; mood and affect normal. DERMATOLOGICAL: Dressing with Mendoza wrap left lower extremity below the knee INVESTIGATIONS, reviewed in the clinical context: White count 7.9 hemoglobin 9.6 platelets 124 potassium 5 BUN 17 creatinine 1.59 Computed tomography scan lower leg lift without contrast: Soft tissue swelling without any obvious evidence of abscess Wound culture: Klebsiella pneumonia and Staphylococcus simulans Assessment and plan: -Acute left lower extremity cellulitis and wound secondary to underlying edema.Wound culture: Klebsiella pneumonia and Staphylococcus simulans Computed tomography scan negative for abscess. Seen by orthopedics. Recommended no I&D. IV vancomycin and IV ceftriaxone-for 2 weeks upon discharge. -Hepatic cirrhosis, secondary to alcoholism Aldactone. Lasix. Fluid restriction. -Failed gastric bypass and sleeve gastrectomy-has followed up at [facility]. High risk of surgery hence no further intervention - obesity BMI 35.9 Weight loss measures -Primary osteoarthritis multiple joints Percocet when necessary -Chronic nicotine dependence, cigar smoker Nicotine patch -Alcohol use disorder Abstain -Chronic kidney disease, stage III, from hepatorenal syndrome Follow renal function -COPD in the current smoker Pro-air when necessary 2 weeks of home IV antibiotics upon discharge. Continue current medications. Pending discharge following arrangement finding medics for home. I spent about total 40 minutes with over 25 minutes of discussion including patient nurse insurance case manager
[2021-11-03] MEDS ORDERED: VANCOMYCIN 1,750 MG in SODIUM CHLORIDE 0.9% 500 ML 500 ML IVPB SCH (20:00)
[2021-11-04] MEDS: oxyCODONE-APAP 10-325MG 1 EACH TAB PO PRN ×3 (04:10→13:40)
[2021-11-04] MEDS: MAGNESIUM OXIDE 400 MG TAB PO SCH (07:28)
[2021-11-04] MEDS: METOPROLOL TARTRATE 25 MG TAB PO SCH (07:28)
[2021-11-04] MEDS: MONTELUKAST 10 MG TAB PO SCH (07:28)
[2021-11-04] MEDS: POTASSIUM CHLORIDE ER 10 MEQ TAB.ER.PRT PO SCH (07:28)
[2021-11-04] MEDS: ERGOCALCIFEROL 1,250 MCG (50,000 IU) CAPSULE PO SCH (07:28)
[2021-11-04] MEDS: LACTULOSE 20 GM/30 ML CUP PO SCH (09:00)
--- NOTE | 2021-11-04 09:32 | P.PN ---
Subjective Progress Note Date: 11/03/21 Principal diagnosis: Left leg abscess and cellulitis Patient is a 66-year-old -Spanish male with multiple comorbidities presented to the hospital with left lower extremity redness any purulent drainage has been diagnosed with an abscess and cellulitis. Patient has been e valuated by orthopedics recommending no drainage On today's evaluation that is 11/03/2021, the patient continues to be afebrile, the patient left lower extremity pain and drainage has decreased in intensity, the patient denies chest pain shortness of breath or cough, the patient denies vomiting and no abdominal pain and no diarrhea, currently waiting for outpatient IV antibiotic arrangement and discharge Objective - Vital Signs Vital signs: Vital Signs Temp 97.8 F 11/03/21 08:00 Pulse 89 11/03/21 08:00 Resp 18 11/03/21 08:00 BP 127/78 11/03/21 08:00 Pulse Ox 97 11/03/21 08:22 FiO2 Intake & Output 11/02/21 11/03/21 11/03/21 18:59 06:59 18:59 Intake Total 450 296 Output Total 900 Balance -450 296 Weight 113.398 kg Intake: Oral 450 296 Output: Urine 900 Other: Voiding Method Toilet # Voids 3 - Exam GENERAL DESCRIPTION: A middle-age male lying in bed in no distress RESPIRATORY SYSTEM: Unlabored breathing , decreased breath sounds at bases HEART: S1 S2 regular rate and rhythm , ABDOMEN: Soft , no tenderness EXTREMITIES: Left leg swelling and redness has decreased - Labs CBC & Chem 7: 11/02/21 11:48 11/03/21 05:38 Labs: Abnormal Lab Results - Last 24 Hours (Table) 11/02/21 11/02/21 11/03/21 Range/Units 11:48 11:48 05:38 RBC 2.59 L (4.30-5.90) m/uL Hgb 9.6 L (13.0-17.5) gm/dL Hct 31.1 L (39.0-53.0) % MCV 120.1 H (80.0-100.0) fL MCH 37.0 H (25.0-35.0) pg MCHC 30.8 L (31.0-37.0) g/dL Plt Count 124 L (150-450) k/uL Macrocytosis Marked A Sodium 136 L 135 L (137-145) mmol/L Carbon Dioxide 19 L 18 L (22-30) mmol/L Creatinine 1.59 H 1.45 H (0.66-1.25) mg/dL Assessment and Plan (1) Bilateral lower leg cellulitis Current Visit: Yes Status: Acute Code(s): L03.116 - CELLULITIS OF LEFT LOWER LIMB; L03.115 - CELLULITIS OF RIGHT LOWER LIMB SNOMED Code(s): 826409583 Plan: 1patient with acute left lower extremity cellulitis and wound which is draining some purulent drainage concerning for underlying abscess likely from gram- positive skin [place] with recent admission to an outside facility and apparently the patient had drainage of an abscess however the patient not sure about the culture on the antibiotic he has been treated with. 2 CT of the left leg was negative for any fluid collection and the patient has been evaluated by orthopedics recommending no drainage 3patient has shown clinical improvement, left leg local cultures grew Klebsiella and Staphylococcus oxacillin resistant patient to continue with vancomycin and Rocephin 2 g daily, currently waiting for outpatient IV antibiotic arrangement Time with Patient: Less than 30
--- NOTE | 2021-11-04 09:33 | P.PN ---
Subjective Progress Note Date: 11/04/21 Principal diagnosis: Left leg abscess and cellulitis Patient is a 66-year-old -Icelandic male with multiple comorbidities presented to the hospital with left lower extremity redness any purulent drainage has been diagnosed with an abscess and cellulitis. Patient has been e valuated by orthopedics recommending no drainage On today's evaluation that is 11/04/2021, the patient denies any fever or any chills, the patient left lower extremity pain has decreased in intensity, the patient denies chest pain shortness of breath or cough, the patient denies vomiting and no abdominal pain and no diarrhea, no new symptoms Objective - Vital Signs Vital signs: Vital Signs Temp 97.9 F 11/04/21 07:46 Pulse 100 11/04/21 07:46 Resp 18 11/04/21 07:46 BP 126/74 11/04/21 07:46 Pulse Ox 99 11/04/21 07:46 FiO2 Intake & Output 11/03/21 11/04/21 11/04/21 18:59 06:59 18:59 Intake Total 592 180 Balance 592 180 Intake: Oral 592 180 Other: Voiding Method Toilet Toilet # Voids 3 2 # Bowel Movements 1 - Exam GENERAL DESCRIPTION: A middle-age male lying in bed in no distress RESPIRATORY SYSTEM: Unlabored breathing , decreased breath sounds at bases HEART: S1 S2 regular rate and rhythm , ABDOMEN: Soft , no tenderness EXTREMITIES: Left leg wound is currently dressed no drainage on the dressing - Labs CBC & Chem 7: 11/02/21 11:48 11/03/21 05:38 Assessment and Plan (1) Bilateral lower leg cellulitis Current Visit: Yes Status: Acute Code(s): L03.116 - CELLULITIS OF LEFT LOWER LIMB; L03.115 - CELLULITIS OF RIGHT LOWER LIMB SNOMED Code(s): 642360792 Plan: 1patient with acute left lower extremity cellulitis and wound which is draining some purulent drainage concerning for underlying abscess likely from gram- positive skin [place] with recent admission to an outside facility and apparently the patient had drainage of an abscess however the patient not sure about the culture on the antibiotic he has been treated with. 2 CT of the left leg was negative for any fluid collection and the patient has been evaluated by orthopedics recommending no drainage 3patient has shown clinical improvement, left leg local cultures grew Klebsiella and Staphylococcus oxacillin resistant patient is currently being treated with vancomycin and Rocephin 2 g daily, plan is for 2 weeks of anybody got discharged prescription again was provided to the shoe parts caser Time with Patient: Less than 30
[2021-11-04] MEDS: DAPTOmycin 350 MG in SODIUM CHLORIDE 0.9% 50 ML IVPB SCH (10:57)
[2021-11-04] MEDS ORDERED: VANCOMYCIN 1,500 MG in SODIUM CHLORIDE 0.9% 250 ML IVPB SCH ×2 (11:30→12:00)
[2021-11-04 13:47] VITALS: BP 118/81; PULSE 81; RESP 17; TEMP 98
--- NOTE | 2021-11-04 16:19 | P.DS ---
Providers Date of admission: 10/26/21 19:01 Expected date of discharge: 11/04/21 Attending physician: Jose Luis Siu Consults: 10/27/21 13:26 Consult Physician Routine Consulting Provider: Blanco Bueno Consult Reason/Comments: leg celluliitis Do you want consulting provider notified?: Yes 10/29/21 17:02 Consult Physician Routine Consulting Provider: Alexandra Olivo Consult Reason/Comments: LEFT LEG ULCER Do you want consulting provider notified?: Yes Primary care physician: [facility] Course: This is a 66-year-old patient who follows with Dr. Reyes. Chronic stable medical conditions include hypertension, diverticulosis, arthritis, sleeve gastrectomy done in August 2013, then gastric bypass done by [facility] [place]. Subsequently patient had some complications what he describes as a leak [facility] Surgery was felt to be very risky. - no further intervention was done. history of significant alcohol intake. Diagnosed with alcoholic cirrhosis This admission: venous sufficiency left leg apparently had recently did have a drainage of the left leg abscess at the [facility] however the patient not sure about the cultures and the antibiotic for the patient was treated with patient is presenting to [facility] ER yesterday afternoon for evaluation of increased generalized weakness confusion and increasing bilateral lower extremity swelling along with some purulent drainage from the left leg patient be complaining of some pain to the left leg tomorrow with a leaking at times sharp 5-6 out of 10 no radiation on arrival to the ER the patient was afebrile and no fever have been recorded subsequently patient did have normal white count creatinine was mildly elevated liver enzymes are normal urine has been negative patient did have blood cultures obtained Diagnosed with acute left auditory cellulitis and wound. CT of the wound negative for any abscess collection. Seen by orthopedics. No drainage. November 02: I assumed care of the patient today, from [facility]. At a baseline patient does use a walker. Eating good. No fever no chills. Pending PICC line placement. Had a BM yesterday.Informed by case advocate that infusion company will not be able to set up until tomorrow. November 03: Getting IV antibiotics. Comfortable. Spoke to the case advocate nurse. Home antibiotics are being arranged. Spoke with patient. Late in the day spoke to the nurse home antibiotics were not being arranged has discharged to be done tomorrow. November 04: Home antibiotics are arranged. Stable. DC home Past medical history to include: Hypertension, diverticulosis, gout, polyps, arthritis, lung abscess in 2014, gastrics sleeve leak, venous insufficiency left lower extremity, gallstones sleeve gastrectomy August 2013, gastric bleed in 2014, 2016 gastric bypass. Alcoholic cirrhosis Social history: Lives with his mother and nephew. Drinks 3-4 glasses of wine daily and a pint of bourbon about 3-4 nights a week. Cigars a few times a week. Physical examination: VITAL SIGNS: 98, 81, 17, 118/81, 99% room air GENERAL: in a chair, awake, comfortable EYES: Pupils equal. Conjunctiva normal. HEENT: External appearance of nose and ears normal, oral cavity grossly normal. NECK: JVD unable to assess; masses not palpable. HEART: First and second heart sounds are normal; edema improved LUNGS: Respiratory rate normal; distant breath sounds. ABDOMEN: Soft, slightly distended nontender, liver spleen not palpable, no masses palpable. PSYCH: Alert and oriented x3; mood and affect normal. DERMATOLOGICAL: Dressing with Mendoza wrap left lower extremity below the knee INVESTIGATIONS, reviewed in the clinical context: White count 7.9 hemoglobin 9.6 platelets 124 potassium 5 BUN 17 creatinine 1.59 Computed tomography scan lower leg lift without contrast: Soft tissue swelling without any obvious evidence of abscess Wound culture: Klebsiella pneumonia and Staphylococcus simulans Assessment and plan: -Acute left lower extremity cellulitis and wound secondary to underlying edema.Wound culture: Klebsiella pneumonia and Staphylococcus simulans Computed tomography scan negative for abscess. Seen by orthopedics. Recommended no I&D. IV vancomycin and IV ceftriaxone-for 2 weeks upon discharge. -Hepatic cirrhosis, secondary to alcoholism Aldactone. Lasix. Fluid restriction. -Failed gastric bypass and sleeve gastrectomy-has followed up at [facility]. High risk of surgery hence no further intervention - obesity BMI 35.9 Weight loss measures -Primary osteoarthritis multiple joints Percocet when necessary -Chronic nicotine dependence, cigar smoker Nicotine patch -Alcohol use disorder Abstain -Chronic kidney disease, stage III, from hepatorenal syndrome Follow renal function -COPD in the current smoker Pro-air when necessary Disposition: Home Plan - Discharge Summary Discharge Rx Participant: No New Discharge Prescriptions: New cefTRIAXone [Rocephin] 2 gm IVPB Q24HR #14 each DAPTOmycin [Cubicin] 350 mg IVPB Q24H #14 each Continue Gabapentin [Neurontin] 300 mg PO TID PRN PRN Reason: Pain Magnesium Oxide [Mag-Ox] 400 mg PO BID #30 tab Furosemide [Lasix] 40 mg PO BID #60 tab Zolpidem [Ambien] 10 mg PO HS PRN PRN Reason: SLEEP Omeprazole [PriLOSEC] 20 mg PO DAILY Montelukast [Singulair] 10 mg PO DAILY Albuterol Sulfate [Proair Hfa] 2 puff INHALATION RT-Q6H PRN PRN Reason: Shortness Of Breath Meloxicam [Mobic] 15 mg PO DAILY Ergocalciferol (Vitamin D2) [Drisdol (50,000 Iu)] 1,250 mcg PO Q7D Potassium Chloride ER [K-Dur 10] 10 meq PO BID polyethylene glycoL 3350 [Clearlax] 17 gm PO DAILY PRN PRN Reason: Constipation oxyCODONE-APAP 10-325MG [Percocet 10-325 mg] 1 tab PO Q4H PRN PRN Reason: Pain Spironolactone 50 mg PO DAILY Changed Metoprolol Tartrate [Lopressor] 25 mg PO BID #0 Discharge Medication List Gabapentin [Neurontin] 300 mg PO TID PRN 01/28/19 [History] Albuterol Sulfate [Proair Hfa] 2 puff INHALATION RT-Q6H PRN 04/05/21 [History] Meloxicam [Mobic] 15 mg PO DAILY 04/05/21 [History] Montelukast [Singulair] 10 mg PO DAILY 04/05/21 [History] Furosemide [Lasix] 40 mg PO BID #60 tab 04/09/21 [Rx] Magnesium Oxide [Mag-Ox] 400 mg PO BID #30 tab 04/09/21 [Rx] Ergocalciferol (Vitamin D2) [Drisdol (50,000 Iu)] 1,250 mcg PO Q7D 09/29/21 [History] Potassium Chloride ER [K-Dur 10] 10 meq PO BID 09/29/21 [History] Zolpidem [Ambien] 10 mg PO HS PRN 09/29/21 [History] Omeprazole [PriLOSEC] 20 mg PO DAILY 10/26/21 [History] Spironolactone 50 mg PO DAILY 10/26/21 [History] oxyCODONE-APAP 10-325MG [Percocet 10-325 mg] 1 tab PO Q4H PRN 10/26/21 [History] polyethylene glycoL 3350 [Clearlax] 17 gm PO DAILY PRN 10/26/21 [History] Metoprolol Tartrate [Lopressor] 25 mg PO BID #0 11/02/21 [Rx] DAPTOmycin [Cubicin] 350 mg IVPB Q24H #14 each 11/04/21 [Rx] cefTRIAXone [Rocephin] 2 gm IVPB Q24HR #14 each 11/04/21 [Rx] Follow up Appointment(s)/Referral(s): Edison Reyes MD [Primary Care Provider] - 11/16/21 9:30 am Blanco Bueno MD [STAFF PHYSICIAN] - 11/11/21 9:30 am ([facility] - please arrive 15 minutes prior to appointment time) [facility] Visiting Nurse, [NON-STAFF] - ([facility] will call you to arrange a visit. ) Patient Instructions/Handouts: Fluid Restriction (DC) Activity/Diet/Wound Care/Special Instructions: Active Infusion supplying IV antibiotics for home: [phone] bueno antibiotics per dr bueno fluid restrict 1500 cc/day
== END 2021-11-04 15:14 | disposition home health service (06) | DRG 602 ==
LOC: EC 16:52 → 4SSUR 19:01
PROVIDERS: ADMIT Hospitalist; ATTEND Hospitalist
PROC: 02HV33Z Insertion of Infusion Device into Superior Vena Cava, Percutaneous Approach (ICD-10-PCS; principal; 2021-11-02 07:30)
DX: L03.116 Cellulitis of left lower limb (principal); K76.7 Hepatorenal syndrome; L97.919 Non-pressure chronic ulcer of unspecified part of right lower leg with unspecified severity; L97.929 Non-pressure chronic ulcer of unspecified part of left lower leg with unspecified severity; K95.89 Other complications of other bariatric procedure; L03.115 Cellulitis of right lower limb; M15.9 Polyosteoarthritis, unspecified; N18.30 Chronic kidney disease, stage 3 unspecified; Z68.35 Body mass index [BMI] 35.0-35.9, adult; K70.30 Alcoholic cirrhosis of liver without ascites; K70.40 Alcoholic hepatic failure without coma; K59.00 Constipation, unspecified; D64.9 Anemia, unspecified; E66.9 Obesity, unspecified; I12.9 Hypertensive chronic kidney disease with stage 1 through stage 4 chronic kidney disease, or unspecified chronic kidney disease; J44.9 Chronic obstructive pulmonary disease, unspecified; F10.20 Alcohol dependence, uncomplicated; I87.2 Venous insufficiency (chronic) (peripheral); Y84.8 Other medical procedures as the cause of abnormal reaction of the patient, or of later complication, without mention of misadventure at the time of the procedure; F17.290 Nicotine dependence, other tobacco product, uncomplicated; K57.90 Diverticulosis of intestine, part unspecified, without perforation or abscess without bleeding; M10.9 Gout, unspecified; M54.9 Dorsalgia, unspecified; B96.1 Klebsiella pneumoniae [K. pneumoniae] as the cause of diseases classified elsewhere; B95.7 Other staphylococcus as the cause of diseases classified elsewhere; Z79.1 Long term (current) use of non-steroidal anti-inflammatories (NSAID); Z79.899 Other long term (current) drug therapy; Z28.21 Immunization not carried out because of patient refusal; Z71.3 Dietary counseling and surveillance; Z87.19 Personal history of other diseases of the digestive system; Z86.010 Personal history of colon polyps
CPT/HCPCS: 36415; 36573; 80048; 80053; 80202; 80320; 81003; 82140; 82565; 83605; 83735; 84484; 85025; 85610; 85730; 87040; 87070; 87075; 87077; 87186; 87205; 93005; 94760; 96365; 96366; 96375; 99285